=== PATIENT | female | born 1960 | race Caucasian/White ===

== ENCOUNTER → 2022-05-08 08:58 | Outpatient (CLI) | payer MEDICARE, SELFPAY ==
--- NOTE | 2022-05-08 09:05 | XR_ITS ---
FINAL REPORT TECHNIQUE: Bone densitometry calculations of the lumbar spine and hip were obtained. CLINICAL HISTORY: post sandoval FINDINGS: DEXA BONE DENSITY AXIAL SKELETON Using L1-4, the bone mineral density of the spine is 1.173 g/cm2, corresponding to T-score of 1.1. Note these values may be falsely elevated secondary to hypertrophic changes. Using the right hip, the bone mineral density of the femoral neck is 0.607 g/cm2, corresponding to a T-score of -2.2. NOTE: T-score: Standard deviation compared with peak bone mass of young adult mean. *Following the recommendations of the International Society of Bone densitometry, classification of hip BMD is based on the lower of two T-scores; total hip or femoral neck. IMPRESSION: Diminished bone mineral density of the lumbar spine and right hip consistent with osteopenia. FRAX 10 year fracture risk is 2.6% for a hip fracture and 17% for a major osteoporotic fracture. Reviewed, Interpreted and Dictated by Xavier Roque III, MD Transcribed by Mandy Rhoades Authenticated and [facility]
== END ==
PROVIDERS: PCP Family Medicine; Visit Provider Family Medicine
DX: Z78.0 Asymptomatic menopausal state (principal)
CPT/HCPCS: 77080

== ENCOUNTER → 2022-05-14 12:54 | Outpatient (CLI) | payer MEDICARE, SELFPAY ==
[2022-05-14 12:59] LABS: MANUAL DIFFERENTIAL MANUAL DIFFERENTIAL (MANUAL DIFF); Microscopic, Urine URINE MICROSCOPIC (MICROSCOPIC)
[2022-05-14 14:05] LABS: Basophils # 0.1 K/mm3 (0-0.2); Basophils % 0.7 % (0.1-2.0); Eosinophils % 0.1 % (0.1-12.0); Hematocrit 44.8 % (37.0-47.0); Hemoglobin 14.7 g/dL (12.2-16.2); Lymphocytes # 3.1 K/mm3 (0.7-4.5); Lymphocytes % 20.4 % (10-50); Mean Corpuscular HGB Conc 32.7 g/dL (31.8-35.4); Mean Corpuscular Hemoglobin 29.7 pg (27.0-31.2); Mean Corpuscular Volume 90.9 fl (81-99); Mean Platelet Volume 8.6 fl (7.4-10.4); Monocytes # 0.6 K/mm3 (0.1-1.0); Monocytes % 4.3 % (1.7-9.3); Neutrophils # 11.2 K/mm3 (1.8-7.8); Neutrophils % 74.5 % (37.0-80.0); Platelet Count 309 K/mm3 (142-424); Red Blood Count 4.93 M/mm3 (4.20-5.40); Red Cell Distribution Width 12.7 % (11.5-17.5)
[2022-05-14 14:13] LABS: Lymphocytes % 22 % (10-50); Monocytes % 5 % (2-9); Neutrophils % 73 % (42-76); Total Cells Counted 100
[2022-05-14 14:14] LABS: Platelet Estimate Normal; RBC Morphology Normal
[2022-05-14 14:50] LABS: Hemoglobin A1C 7.9 % (4.0-6.0)
[2022-05-14 14:54] LABS: Chloride 88 mmol/L (98-107); Sodium 133 mmol/L (136-145)
[2022-05-14 14:55] LABS: Potassium 4.1 mmoL/L (3.5-5.1)
[2022-05-14 14:57] LABS: Alanine Aminotransferase 34 U/L (12-78); Albumin Level 5.1 g/dl (3.5-5.0); Alkaline Phosphatase 56 U/L (38-126); Anion Gap 20.1 mEq/L (5-15); Aspartate Amino Transferase 39 U/L (14-36); Bilirubin,Total 0.8 mg/dl (0.2-1.3); Blood Urea Nitrogen 13 mg/dl (7-17); Carbon Dioxide 29 mmol/L (22.0-30.0); Cholesterol 209 mg/dl (140-200); Estimated Glomerular Filt Rate 85 ml/min (>60); GFR (African American) 103 ML/MIN (>60); Globulin 2.5 g/dL (1.3-3.2); Total Protein,Serum 7.6 g/dl (6.3-8.2); Triglycerides 184 mg/dl (30-150); VLDL Cholesterol 37 mg/dL (0-40)
[2022-05-14 14:58] LABS: Calcium 11.3 mg/dl (8.4-10.2); Chol/HDL Ratio 3.9 (1-3.5); Glucose 182 mg/dl (74-100); HDL Cholesterol 54 mg/dl (40-60)
[2022-05-14 15:08] LABS: Direct LDL Cholesterol 113.33 mg/dL (100-129)
[2022-05-14 15:28] LABS: Thyroid Stimulating Hormone 1.13 uIU/mL (0.465-4.68)
[2022-05-14 18:09] LABS: Appearance,Urine CLEAR (Clear); Bilirubin,Urine Negative (Negative); Blood, Urine TRACE-L (Negative); Color,Urine YELLOW (Yellow); Glucose,Urine (UA) Negative (Negative); Ketones,Urine Negative (Negative); Leukocyte Esterase,Urine 2+ (Negative); Nitrate,Urine Negative (Negative); PH,Urine 6.5 (5.0-8.5); Protein,Urine 1+ (Negative); Urobilinogen,Urine 0.2 EU/dl (0.2)
[2022-05-14 21:05] LABS: RBC,Urine Occasional #/hpf (0-3)
[2022-05-14 21:06] LABS: Bacteria,Urine 4+ /lpf
[2022-05-15 16:13] LABS: H. pylori Breath Test Negative (Negative)
== END ==
PROVIDERS: PCP Family Medicine; Visit Provider Family Medicine
DX: E11.9 Type 2 diabetes mellitus without complications (principal); E78.5 Hyperlipidemia, unspecified; I10 Essential (primary) hypertension; R35.0 Frequency of micturition; Z79.84 Long term (current) use of oral hypoglycemic drugs
CPT/HCPCS: 36415; 80053; 80061; 81001; 82043; 83013; 83036; 84443; 85007; 85014; 85018; 85048; 85049; 87086; 87088; 87186

== ENCOUNTER → 2022-05-23 09:01 | Outpatient (CLI) | payer MEDICARE, SELFPAY ==
[2022-05-23 09:07] LABS: Microscopic, Urine URINE MICROSCOPIC (MICROSCOPIC)
[2022-05-23 09:25] LABS: Basophils # 0.1 K/mm3 (0-0.2); Basophils % 1.1 % (0.1-2.0); Eosinophils # 0.3 K/mm3 (0.0-0.4); Eosinophils % 2.2 % (0.1-12.0); Hematocrit 43.5 % (37.0-47.0); Hemoglobin 13.8 g/dL (12.2-16.2); Lymphocytes # 5.2 K/mm3 (0.7-4.5); Mean Corpuscular HGB Conc 31.8 g/dL (31.8-35.4); Mean Corpuscular Hemoglobin 29.4 pg (27.0-31.2); Mean Corpuscular Volume 92.2 fl (81-99); Mean Platelet Volume 8.6 fl (7.4-10.4); Monocytes # 0.5 K/mm3 (0.1-1.0); Monocytes % 4.1 % (1.7-9.3); Neutrophils # 6.3 K/mm3 (1.8-7.8); Neutrophils % 50.7 % (37.0-80.0); Platelet Count 320 K/mm3 (142-424); Red Blood Count 4.71 M/mm3 (4.20-5.40); Red Cell Distribution Width 13.9 % (11.5-17.5); White Blood Count 12.4 K/mm3 (4.8-10.8)
[2022-05-23 09:39] LABS: Appearance,Urine CLEAR (Clear); Bilirubin,Urine Negative (Negative); Blood, Urine Negative (Negative); Color,Urine YELLOW (Yellow); Glucose,Urine (UA) Negative (Negative); Ketones,Urine Negative (Negative); Leukocyte Esterase,Urine 1+ (Negative); Nitrate,Urine Negative (Negative); PH,Urine 6.5 (5.0-8.5); Protein,Urine Negative (Negative); Specific Gravity, Urine 1.015 (1.005-1.030); Urobilinogen,Urine 0.2 EU/dl (0.2)
[2022-05-23 09:58] LABS: Alanine Aminotransferase 28 U/L (12-78); Albumin Level 4.9 g/dl (3.5-5.0); Albumin/Globulin Ratio 2.5 (1.1-1.8); Alkaline Phosphatase 51 U/L (38-126); Amylase 80 U/L (30-110); Anion Gap 18.4 mEq/L (5-15); Aspartate Amino Transferase 31 U/L (14-36); Bilirubin,Total 0.6 mg/dl (0.2-1.3); Blood Urea Nitrogen 22 mg/dl (7-17); Calcium 10.6 mg/dl (8.4-10.2); Carbon Dioxide 27 mmol/L (22.0-30.0); Chloride 96 mmol/L (98-107); Estimated Glomerular Filt Rate 64 ml/min (>60); GFR (African American) 77 ML/MIN (>60); Glucose 180 mg/dl (74-100); Lipase 379 U/L (23-300); Potassium 4.4 mmoL/L (3.5-5.1); Sodium 137 mmol/L (136-145); Total Protein,Serum 6.9 g/dl (6.3-8.2)
[2022-05-23 10:07] LABS: Bacteria,Urine Trace /lpf; RBC,Urine Occasional #/hpf (0-3); Squamous Epithelial Cell,Urine Occasional #/hpf (0-5)
== END ==
PROVIDERS: PCP Family Medicine; Visit Provider Family Medicine
DX: E11.9 Type 2 diabetes mellitus without complications (principal); R19.7 Diarrhea, unspecified; N39.0 Urinary tract infection, site not specified; E86.0 Dehydration; Z79.899 Other long term (current) drug therapy; Z79.84 Long term (current) use of oral hypoglycemic drugs
CPT/HCPCS: 36415; 80053; 81001; 82150; 83690; 85025; 87086

== ENCOUNTER → 2022-05-24 11:31 | Outpatient (CLI) | payer MEDICARE, SELFPAY ==
--- NOTE | 2022-05-24 11:35 | CT_ITS ---
FINAL REPORT TECHNIQUE: Axial CT images of the abdomen were obtained with IV contrast. Coronal reformatted images were also obtained. This study was performed with techniques to keep radiation doses as low as reasonably achievable (ALARA). Individualized dose reduction techniques using automated exposure control or adjustment of mA and/or kV according to the patient''s size were employed. CLINICAL HISTORY: elevated pancreatic enzyme and abdominal pain FINDINGS: The lung bases are clear. There is mild fatty infiltration of the liver. The gallbladder appears normal without evidence of gallstones. There is no evidence of biliary ductal dilatation. The pancreas appears normal. There is no peripancreatic fluid. There is no pancreatic mass. The spleen size is within normal limits. There is mild bilateral adrenal hyperplasia. There is no evidence of renal mass or hydronephrosis. There is no evidence of adenopathy. No abnormal fluid collection is seen. No localized inflammatory processes identified. IMPRESSION: No peripancreatic inflammation or pancreatic mass. Mild fatty infiltration of the liver. Mild bilateral adrenal hyperplasia. Reviewed, Interpreted and Dictated by Kris Parkinson MD Transcribed by Bharath Anderson Authenticated and [facility]
== END ==
PROVIDERS: PCP Family Medicine; Visit Provider Family Medicine
DX: K85.90 Acute pancreatitis without necrosis or infection, unspecified (principal)
CPT/HCPCS: 74160; Q9967

== ENCOUNTER → 2022-08-26 10:45 | Outpatient (CLI) | payer MEDICARE, SELFPAY ==
[2022-08-26 11:16] LABS: Basophils # 0.1 K/mm3 (0-0.2); Basophils % 1.5 % (0.1-2.0); Eosinophils # 0.1 K/mm3 (0.0-0.4); Eosinophils % 1.6 % (0.1-12.0); Hematocrit 44.2 % (37.0-47.0); Hemoglobin 14.3 g/dL (12.2-16.2); Lymphocytes # 3.3 K/mm3 (0.7-4.5); Lymphocytes % 39.6 % (10-50); Mean Corpuscular HGB Conc 32.4 g/dL (31.8-35.4); Mean Corpuscular Volume 89.5 fl (81-99); Mean Platelet Volume 8.7 fl (7.4-10.4); Monocytes # 0.4 K/mm3 (0.1-1.0); Monocytes % 4.8 % (1.7-9.3); Neutrophils # 4.4 K/mm3 (1.8-7.8); Neutrophils % 52.5 % (37.0-80.0); Platelet Count 227 K/mm3 (142-424); Red Blood Count 4.94 M/mm3 (4.20-5.40); Red Cell Distribution Width 12.9 % (11.5-17.5); White Blood Count 8.4 K/mm3 (4.8-10.8)
[2022-08-26 11:26] LABS: Creatinine,Urine Random 26 mg/dL (Not Estab.); Microalbumin/Creatinine Ratio 66.1
[2022-08-26 11:31] LABS: Hemoglobin A1C 9.8 % (4.0-6.0)
[2022-08-26 11:48] LABS: Alanine Aminotransferase 30 U/L (12-78); Albumin Level 4.7 g/dl (3.5-5.0); Alkaline Phosphatase 50 U/L (38-126); Amylase 58 U/L (30-110); Anion Gap 9.2 mEq/L (5-15); Aspartate Amino Transferase 31 U/L (14-36); Bilirubin,Total 0.8 mg/dl (0.2-1.3); Blood Urea Nitrogen 14 mg/dl (7-17); Carbon Dioxide 27 mmol/L (22.0-30.0); Chloride 104 mmol/L (98-107); Estimated Glomerular Filt Rate 73 ml/min (>60); GFR (African American) 88 ML/MIN (>60); Globulin 2.3 g/dL (1.3-3.2); Glucose 290 mg/dl (74-100); Lipase 222 U/L (23-300); Potassium 4.2 mmoL/L (3.5-5.1); Sodium 136 mmol/L (136-145)
== END ==
PROVIDERS: PCP Family Medicine; Visit Provider Family Medicine
DX: E11.9 Type 2 diabetes mellitus without complications (principal); D72.829 Elevated white blood cell count, unspecified; R10.9 Unspecified abdominal pain; R74.8 Abnormal levels of other serum enzymes; Z79.84 Long term (current) use of oral hypoglycemic drugs
CPT/HCPCS: 36415; 80053; 82043; 82150; 82570; 83036; 83690; 85025; 87086; 87088; 87186

== ENCOUNTER → 2022-11-22 09:35 | Outpatient (CLI) | payer MEDICARE, SELFPAY ==
[2022-11-22 11:30] LABS: Alanine Aminotransferase 39 U/L (12-78); Albumin/Globulin Ratio 2.2 (1.1-1.8); Alkaline Phosphatase 60 U/L (38-126); Anion Gap 20.9 mEq/L (5-15); Aspartate Amino Transferase 49 U/L (14-36); Blood Urea Nitrogen 18 mg/dl (7-17); Calcium 10.3 mg/dl (8.4-10.2); Carbon Dioxide 25 mmol/L (22.0-30.0); Chloride 92 mmol/L (98-107); Cholesterol 207 mg/dl (140-200); Estimated Glomerular Filt Rate 85 ml/min (>60); GFR (African American) 103 ML/MIN (>60); Globulin 2.3 g/dL (1.3-3.2); Glucose 231 mg/dl (74-100); HDL Cholesterol 68 mg/dl (40-60); Potassium 4.9 mmoL/L (3.5-5.1); Sodium 133 mmol/L (136-145); Total Protein,Serum 7.3 g/dl (6.3-8.2); Triglycerides 174 mg/dl (30-150); VLDL Cholesterol 35 mg/dL (0-40)
[2022-11-22 11:41] LABS: Direct LDL Cholesterol 123.06 mg/dL (100-129)
[2022-11-22 12:24] LABS: Hemoglobin A1C 9.6 % (4.0-6.0)
== END ==
PROVIDERS: PCP Family Medicine; Visit Provider Family Medicine
DX: E78.5 Hyperlipidemia, unspecified (principal); E11.9 Type 2 diabetes mellitus without complications; Z79.84 Long term (current) use of oral hypoglycemic drugs
CPT/HCPCS: 36415; 80053; 80061; 83036

== ENCOUNTER → 2023-02-20 16:16 | Outpatient (CLI) | payer MEDICARE, SELFPAY ==
[2023-02-20 10:15] LABS: Basophils # 0.1 K/mm3 (0-0.2); Basophils % 0.6 % (0.1-2.0); Eosinophils # 0.1 K/mm3 (0.0-0.4); Hematocrit 47.8 % (37.0-47.0); Hemoglobin 15.6 g/dL (12.2-16.2); Lymphocytes % 32.9 % (10-50); Mean Corpuscular HGB Conc 32.6 g/dL (31.8-35.4); Mean Corpuscular Hemoglobin 28.5 pg (27.0-31.2); Mean Corpuscular Volume 87.3 fl (81-99); Mean Platelet Volume 9.3 fl (7.4-10.4); Monocytes # 0.5 K/mm3 (0.1-1.0); Neutrophils # 5.5 K/mm3 (1.8-7.8); Neutrophils % 60.5 % (37.0-80.0); Platelet Count 231 K/mm3 (142-424); Red Blood Count 5.48 M/mm3 (4.20-5.40); White Blood Count 9.1 K/mm3 (4.8-10.8)
[2023-02-20 11:14] LABS: Hemoglobin A1C 10.5 % (4.0-6.0)
[2023-02-20 11:31] LABS: Alanine Aminotransferase 35 U/L (12-78); Albumin Level 4.9 g/dl (3.5-5.0); Albumin/Globulin Ratio 1.8 (1.1-1.8); Alkaline Phosphatase 54 U/L (38-126); Anion Gap 19.4 mEq/L (5-15); Aspartate Amino Transferase 36 U/L (14-36); Bilirubin,Total 1.4 mg/dl (0.2-1.3); Blood Urea Nitrogen 20 mg/dl (7-17); Calcium 10.5 mg/dl (8.4-10.2); Carbon Dioxide 26 mmol/L (22.0-30.0); Chloride 96 mmol/L (98-107); Chol/HDL Ratio 4.6 (1-3.5); Cholesterol 208 mg/dl (140-200); Estimated Glomerular Filt Rate 73 ml/min (>60); GFR (African American) 88 ML/MIN (>60); Globulin 2.7 g/dL (1.3-3.2); Glucose 288 mg/dl (74-100); HDL Cholesterol 45 mg/dl (40-60); Potassium 4.4 mmoL/L (3.5-5.1); Sodium 137 mmol/L (136-145); Total Protein,Serum 7.6 g/dl (6.3-8.2); Triglycerides 295 mg/dl (30-150); VLDL Cholesterol 59 mg/dL (0-40)
[2023-02-20 11:42] LABS: Direct LDL Cholesterol 110.78 mg/dL (100-129)
== END ==
PROVIDERS: PCP Nurse Practitioner Family; Visit Provider Nurse Practitioner Family
DX: I10 Essential (primary) hypertension (principal); E11.9 Type 2 diabetes mellitus without complications; Z79.84 Long term (current) use of oral hypoglycemic drugs; Z79.899 Other long term (current) drug therapy
CPT/HCPCS: 80053; 80061; 83036; 85025

== ENCOUNTER 2023-04-11 17:15 | Emergency (ER) | payer MEDICARE, SELFPAY ==
[2023-04-11 17:16] VITALS: BP 165/78; PULSE 78; RESP 20; TEMP 36.7; O2SAT 99; BMI 23.8
--- NOTE | 2023-04-11 17:25 | HMH.EDGENADL ---
Discharge Plan Disposition Patient Disposition: Home, Self-Care Condition: Good Prescriptions Prescriptions: No Action Hair,Skin and Nails Tablet 1 tab PO DAILY omega-3 fatty acids-fish oil [Fish Oil] 360-1,200 mg capsule 1 cap PO DAILY lysine 1,000 mg tablet 1,000 mg PO DAILY Centrum Silver Women 8 mg iron-400 mcg-50 mcg tablet 1 tab PO DAILY vitamin E (dl, acetate) 180 mg (400 unit) capsule 180 mg PO DAILY cholecalciferol (vitamin D3) 25 mcg (1,000 unit) capsule 25 mcg PO DAILY hydrochlorothiazide 25 mg tablet 25 mg PO DAILY Qty: 90 1RF lisinopril 40 mg tablet 40 mg PO DAILY Qty: 90 1RF loratadine 10 mg tablet 10 mg PO DAILY Qty: 90 1RF metformin 1,000 mg tablet 1,000 mg PO BID 90 Days Qty: 180 1RF omeprazole 40 mg capsule,delayed release(DR/EC) 40 mg PO DAILY 90 Days Qty: 90 1RF rosuvastatin 40 mg tablet 40 mg PO DAILY Qty: 90 1RF Jardiance 10 mg tablet 10 mg PO DAILY Qty: 90 1RF fenofibrate nanocrystallized [Tricor] 145 mg tablet 145 mg PO DAILY Qty: 90 1RF Rybelsus 3 mg tablet 3 mg PO DAILY 30 Days Qty: 30 0RF Referrals Follow up/Referrals: Fatou Abreu APRN [Primary Care Provider] - See instructions Activity Restrictions/Add. Instructions Additional Instructions/Restrictions: As discussed, please keep checking her blood sugar, you can take that additional diabetes medication if needed, please return with any new or worsening symptoms Clinical Impressions Clinical Impression: Acute hyperglycemia Discharge ED Provider: Rickie Yang Adult HPI General Chief complaint: Nausea/Vomiting/Diarrhea Stated complaint: elevated blood sugar Time Seen by Provider: 04/11/23 17:25 History of Present Illness HPI narrative: The patient presents with a chief complaint of elevated blood sugar levels for the past five days, with readings ranging from 400-500 mg/dL, which is significantly higher than their usual levels of around 200 mg/dL or lower. The patient reports no recent changes in their diabetes medications, which include Metformin, but notes that they were prescribed Flonase for allergies and sinus problems by another physician. The patient suspects that the Flonase, a steroid, may be contributing to their increased blood sugar levels. The patient has been taking 1,000 mg of Metformin twice daily and has recently added glipizide at 330 mg due to the high blood sugar levels. They have already discontinued the use of Flonase for three days in an attempt to address the issue. The patient has an upcoming appointment with their primary care physician next Friday. Related Data Home Medications Medication Instructions Recorded Confirmed cholecalciferol (vitamin D3) 25 25 mcg PO DAILY 02/20/23 02/20/23 mcg (1,000 unit) capsule lysine 1,000 mg tablet 1,000 mg PO DAILY 02/20/23 02/20/23 lxpzlfrj-cqxf-oojo 8 mg-folic 400 1 tab PO DAILY 02/20/23 02/20/23 mcg-K 50 mcg-lutein 300 mcg tablet (Centrum Silver Women) multivitamin with minerals 1 tab PO DAILY 02/20/23 02/20/23 (Hair,Skin and Nails tablet) omega-3 fatty acids-fish oil 360 1 cap PO DAILY 02/20/23 02/20/23 mg-1,200 mg capsule (Fish Oil) vitamin E (dl, acetate) 180 mg 180 mg PO DAILY 02/20/23 02/20/23 (400 unit) capsule Previous Rx's Medication Instructions Recorded empagliflozin 10 mg tablet 10 mg PO DAILY #90 tabs 02/20/23 (Jardiance) hydrochlorothiazide 25 mg tablet 25 mg PO DAILY #90 tabs 02/20/23 lisinopril 40 mg tablet 40 mg PO DAILY #90 tabs 02/20/23 loratadine 10 mg tablet 10 mg PO DAILY #90 tabs 02/20/23 metformin 1,000 mg tablet 1,000 mg PO BID 90 days #180 tabs 02/20/23 omeprazole 40 mg capsule,delayed 40 mg PO DAILY 90 days #90 caps 02/20/23 release rosuvastatin 40 mg tablet 40 mg PO DAILY #90 tabs 02/20/23 fenofibrate nanocrystallized 145 145 mg PO DAILY #90 tabs 02/22/23 mg tablet (Tricor) semaglutide 3 mg tablet (Rybelsus)
[2023-04-11 17:32] LABS: POC Glucose,Bedside 402 (70-110)
[2023-04-11 17:57] LABS: Microscopic, Urine URINE MICROSCOPIC (MICROSCOPIC)
[2023-04-11 17:59] LABS: VBG Base Excess -2.2 mmol/L (-2.4-2.3); VBG HCO3 23.9 mmol/L (23-30); VBG Oxygen Saturation 75.8 % (50-70); VBG PCO2 47.1 mmol/L (35-51); VBG PH 7.32 mmol/L (7.31-7.41); VBG PO2 41.6 mmol/L (28-40); VBG Total CO2 25.3 mmol/L (23-27)
[2023-04-11 18:00] VITALS: BP 161/86; PULSE 71; O2SAT 96
[2023-04-11 18:01] LABS: Basophils # 0.1 K/mm3 (0-0.2); Basophils % 0.9 % (0.1-2.0); Eosinophils # 0.1 K/mm3 (0.0-0.4); Eosinophils % 0.9 % (0.1-12.0); Hematocrit 43.9 % (37.0-47.0); Hemoglobin 14.3 g/dL (12.2-16.2); Mean Corpuscular HGB Conc 32.6 g/dL (31.8-35.4); Mean Corpuscular Hemoglobin 28.6 pg (27.0-31.2); Mean Corpuscular Volume 87.5 fl (81-99); Mean Platelet Volume 9.2 fl (7.4-10.4); Monocytes # 0.5 K/mm3 (0.1-1.0); Monocytes % 4.9 % (1.7-9.3); Neutrophils # 5.2 K/mm3 (1.8-7.8); Neutrophils % 52.4 % (37.0-80.0); Platelet Count 269 K/mm3 (142-424); Red Blood Count 5.02 M/mm3 (4.20-5.40); Red Cell Distribution Width 12.8 % (11.5-17.5); White Blood Count 9.8 K/mm3 (4.8-10.8)
[2023-04-11 18:06] LABS: Alanine Aminotransferase 33 U/L (12-78); Albumin Level 4.8 g/dl (3.5-5.0); Albumin/Globulin Ratio 1.7 (1.1-1.8); Alkaline Phosphatase 45 U/L (38-126); Aspartate Amino Transferase 32 U/L (14-36); Bilirubin,Total 0.3 mg/dl (0.2-1.3); Blood Urea Nitrogen 19 mg/dl (7-17); Carbon Dioxide 28 mmol/L (22.0-30.0); Chloride 98 mmol/L (98-107); Creatinine Clearance Estimated 55 mL/min (50-200); Estimated Glomerular Filt Rate 64 ml/min (>60); GFR (African American) 77 ML/MIN (>60); Globulin 2.8 g/dL (1.3-3.2); Glucose 383 mg/dl (74-100); Sodium 136 mmol/L (136-145); Total Protein,Serum 7.6 g/dl (6.3-8.2)
[2023-04-11 18:07] LABS: Appearance,Urine CLEAR (Clear); Bilirubin,Urine Negative (Negative); Blood, Urine Negative (Negative); Color,Urine YELLOW (Yellow); Glucose,Urine (UA) 3+ (Negative); Ketones,Urine Negative (Negative); Leukocyte Esterase,Urine Negative (Negative); Nitrate,Urine Negative (Negative); Protein,Urine Negative (Negative); Urobilinogen,Urine 0.2 EU/dl (0.2)
--- NOTE | 2023-04-11 18:07 | PC.NURSE ---
rounded on pt at this time, pt request a blanket, warm blanket given to pt. Pt states no other needs at this time.
[2023-04-11 18:19] LABS: Squamous Epithelial Cell,Urine Occasional #/hpf (0-5); WBC,Urine Occasional #/hpf (0-3)
[2023-04-11 18:31] VITALS: BP 160/76; PULSE 78; O2SAT 98
[2023-04-11 20:30] LABS: POC Glucose,Bedside 257 (70-110)
[2023-04-11 21:12] VITALS: BP 177/91; PULSE 66; RESP 20; TEMP 36.7; O2SAT 97
== END 2023-04-11 21:14 | disposition home or self-care (01) ==
PROVIDERS: Emergency Provider Emergency Medicine; PCP Nurse Practitioner Family
DX: E11.65 Type 2 diabetes mellitus with hyperglycemia (principal); I10 Essential (primary) hypertension; E78.5 Hyperlipidemia, unspecified; J30.9 Allergic rhinitis, unspecified
CPT/HCPCS: 80053; 81001; 82803; 82962; 85025; 96360; 99284

== ENCOUNTER → 2023-04-29 11:43 | Outpatient (CLI) | payer MEDICARE, SELFPAY ==
[2023-04-29 14:16] VITALS: BMI 27.3
== END ==
PROVIDERS: PCP Nurse Practitioner Family; Visit Provider Nurse Practitioner Family
DX: E11.9 Type 2 diabetes mellitus without complications (principal); Z79.84 Long term (current) use of oral hypoglycemic drugs; Z71.3 Dietary counseling and surveillance; Z68.25 Body mass index [BMI] 25.0-25.9, adult
CPT/HCPCS: 97802

== ENCOUNTER 2023-07-14 14:12 | Outpatient (CLI) | payer MEDICARE, SELFPAY ==
[2023-07-14 14:36] LABS: Basophils # 0.1 K/mm3 (0-0.2); Basophils % 0.6 % (0.1-2.0); Eosinophils # 0.2 K/mm3 (0.0-0.4); Eosinophils % 1.8 % (0.1-12.0); Hematocrit 42.5 % (37.0-47.0); Lymphocytes # 3.9 K/mm3 (0.7-4.5); Lymphocytes % 40.1 % (10-50); Mean Platelet Volume 10.1 fl (7.4-10.4); Monocytes # 0.5 K/mm3 (0.1-1.0); Monocytes % 5.3 % (1.7-9.3); Neutrophils # 5.1 K/mm3 (1.8-7.8); Neutrophils % 52.2 % (37.0-80.0); Platelet Count 252 K/mm3 (142-424); Red Blood Count 4.83 M/mm3 (4.20-5.40); Red Cell Distribution Width 13.7 % (11.5-17.5); White Blood Count 9.7 K/mm3 (4.8-10.8)
[2023-07-14 14:58] LABS: Alanine Aminotransferase 26 U/L (12-78); Albumin Level 4.4 g/dl (3.5-5.0); Albumin/Globulin Ratio 1.9 (1.1-1.8); Alkaline Phosphatase 47 U/L (38-126); Anion Gap 11.3 mEq/L (5-15); Aspartate Amino Transferase 30 U/L (14-36); Bilirubin,Total 0.4 mg/dl (0.2-1.3); Blood Urea Nitrogen 21 mg/dl (7-17); Calcium 9.3 mg/dl (8.4-10.2); Carbon Dioxide 24 mmol/L (22.0-30.0); Chloride 104 mmol/L (98-107); Chol/HDL Ratio 5.1 (1-3.5); Cholesterol 208 mg/dl (140-200); Estimated Glomerular Filt Rate 56 ml/min (>60); GFR (African American) 68 ML/MIN (>60); Globulin 2.3 g/dL (1.3-3.2); Glucose 225 mg/dl (74-100); HDL Cholesterol 41 mg/dl (40-60); Potassium 4.3 mmoL/L (3.5-5.1); Sodium 135 mmol/L (136-145); Total Protein,Serum 6.7 g/dl (6.3-8.2); Triglycerides 179 mg/dl (30-150); VLDL Cholesterol 36 mg/dL (0-40)
[2023-07-14 15:08] LABS: Direct LDL Cholesterol 131.34 mg/dL (100-129)
[2023-07-14 15:19] LABS: Hemoglobin A1C 9.9 % (4.0-6.0)
[2023-07-14 15:21] LABS: Free T4 (Free Thyroxine) 1.13 ng/dl (0.78-2.19)
[2023-07-14 15:36] LABS: Thyroid Stimulating Hormone 0.84 uIU/mL (0.465-4.68)
[2023-07-14 15:43] LABS: 25-OH Vitamin D, Total 48.5 ng/mL (30-100)
[2023-07-14 15:55] LABS: Vitamin B12 936 pg/mL (239-931)
== END 2023-07-14 23:59 ==
PROVIDERS: PCP Nurse Practitioner Family; Visit Provider Nurse Practitioner Family
DX: E11.9 Type 2 diabetes mellitus without complications; R53.83 Other fatigue; D72.829 Elevated white blood cell count, unspecified; E78.5 Hyperlipidemia, unspecified; M85.89 Other specified disorders of bone density and structure, multiple sites; Z79.84 Long term (current) use of oral hypoglycemic drugs; Z79.899 Other long term (current) drug therapy
CPT/HCPCS: 80053; 80061; 82306; 82607; 83036; 84439; 84443; 85025

== ENCOUNTER 2023-08-13 13:57 | Outpatient (CLI) | payer MEDICARE, SELFPAY ==
--- NOTE | 2023-08-13 13:57 | CT_ITS ---
FINAL REPORT TECHNIQUE: Thin section axial CT images of the facial bones and sinuses were obtained without contrast. Coronal reformatted images were also obtained.This study was performed with techniques to keep radiation doses as low as reasonably achievable, (ALARA). Individualized dose reduction techniques using automated exposure control or adjustment of mA and/or kV according to the patient''''s size were employed. CLINICAL HISTORY: sinusitis FINDINGS: There is mild mucosal thickening of the maxillary sinuses. There is a retention cyst or polyp in the floor of the left maxillary sinus. The ostiomeatal units have an unremarkable appearance. There is left quiana bullosa. There is mild rightward nasal septal deviation. No fracture or acute bony abnormality is identified. IMPRESSION: Sinusitis as above. Reviewed, Interpreted and Dictated by Xavier Roque III, MD Transcribed by Mira Guevara Authenticated and [facility]
== END 2023-08-13 23:59 ==
LOC: RAD 13:57
PROVIDERS: PCP Nurse Practitioner Family; Visit Provider Nurse Practitioner
DX: J32.9 Chronic sinusitis, unspecified (principal)
CPT/HCPCS: 70486

== ENCOUNTER 2023-11-05 10:16 | Outpatient (CLI) | payer MEDICARE, SELFPAY ==
[2023-11-05 10:29] LABS: Microscopic, Urine URINE MICROSCOPIC (MICROSCOPIC)
--- NOTE | 2023-11-05 10:43 | XR_ITS ---
FINAL REPORT CLINICAL HISTORY: dyspnea COMPARISON: None FINDINGS: No acute pulmonary density is evident. There is no evidence of effusion or other pleural disease. The mediastinum has a normal appearance. The cardiac silhouette is unremarkable. IMPRESSION: Unremarkable chest exam. Reviewed, Interpreted and Dictated by Bernardino Fernandez MD Transcribed by Altagracia Guzman Authenticated and [facility]
[2023-11-05 10:54] LABS: Basophils # 0.1 K/mm3 (0-0.2); Basophils % 0.7 % (0.1-2.0); Eosinophils # 0.1 K/mm3 (0.0-0.4); Eosinophils % 0.8 % (0.1-12.0); Hematocrit 43.1 % (37.0-47.0); Hemoglobin 14.2 g/dL (12.2-16.2); Lymphocytes # 2.7 K/mm3 (0.7-4.5); Lymphocytes % 28.5 % (10-50); Mean Corpuscular Hemoglobin 29.3 pg (27.0-31.2); Mean Corpuscular Volume 88.8 fl (81-99); Mean Platelet Volume 9.9 fl (7.4-10.4); Monocytes # 0.5 K/mm3 (0.1-1.0); Monocytes % 5.3 % (1.7-9.3); Neutrophils # 6.1 K/mm3 (1.8-7.8); Neutrophils % 64.5 % (37.0-80.0); Platelet Count 227 K/mm3 (142-424); Red Blood Count 4.85 M/mm3 (4.20-5.40); Red Cell Distribution Width 14.2 % (11.5-17.5); White Blood Count 9.5 K/mm3 (4.8-10.8)
[2023-11-05 11:10] LABS: D-Dimer 0.29 ug/mL (0.0-0.5)
[2023-11-05 11:11] LABS: Hemoglobin A1C 9.9 % (4.0-6.0)
[2023-11-05 11:19] LABS: Creatinine,Urine Random 53 mg/dL (Not Estab.)
[2023-11-05 11:20] LABS: Microalbumin/Creatinine Ratio 61.3
[2023-11-05 11:26] LABS: Appearance,Urine CLEAR (Clear); Bilirubin,Urine Negative (Negative); Blood, Urine Negative (Negative); Chloride 104 mmol/L (98-107); Color,Urine YELLOW (Yellow); Glucose,Urine (UA) 1+ (Negative); Ketones,Urine Negative (Negative); Leukocyte Esterase,Urine Negative (Negative); Nitrate,Urine Negative (Negative); Protein,Urine Negative (Negative); Sodium 139 mmol/L (136-145); Urobilinogen,Urine 0.2 EU/dl (0.2)
[2023-11-05 11:27] LABS: Potassium 3.9 mmoL/L (3.5-5.1)
[2023-11-05 11:29] LABS: Alanine Aminotransferase 40 U/L (12-78); Albumin Level 4.8 g/dl (3.5-5.0); Alkaline Phosphatase 46 U/L (38-126); Anion Gap 15.9 mEq/L (5-15); Aspartate Amino Transferase 46 U/L (14-36); Bilirubin,Total 0.7 mg/dl (0.2-1.3); Blood Urea Nitrogen 26 mg/dl (7-17); Calcium 11.2 mg/dl (8.4-10.2); Carbon Dioxide 23 mmol/L (22.0-30.0); Cholesterol 224 mg/dl (140-200); Estimated Glomerular Filt Rate 50 ml/min (>60); GFR (African American) 61 ML/MIN (>60); Globulin 2.4 g/dL (1.3-3.2); Glucose 240 mg/dl (74-100); Iron 95 ug/dL (37-170); Phosphorous 3.9 mg/dl (2.5-4.5); Total Protein,Serum 7.2 g/dl (6.3-8.2); Triglycerides 100 mg/dl (30-150); VLDL Cholesterol 20 mg/dL (0-40)
[2023-11-05 11:30] LABS: Chol/HDL Ratio 2.7 (1-3.5); HDL Cholesterol 84 mg/dl (40-60); Magnesium 1.4 mg/dl (1.6-2.3)
[2023-11-05 11:42] LABS: Total Iron Binding Capacity 456 ug/dL (265-497)
[2023-11-05 11:46] LABS: Troponin I < 0.01 ng/ml (0.00-0.034)
[2023-11-05 11:48] LABS: Direct LDL Cholesterol 126.59 mg/dL (100-129)
[2023-11-05 11:51] LABS: Squamous Epithelial Cell,Urine Occasional #/hpf (0-5)
[2023-11-05 12:00] LABS: Thyroid Stimulating Hormone 0.49 uIU/mL (0.465-4.68)
[2023-11-05 12:05] LABS: Ferritin 30.3 ng/ml (11.1-264)
[2023-11-05 12:27] LABS: 25-OH Vitamin D, Total 54.7 ng/mL (30-100)
[2023-11-05 12:28] LABS: Free T4 (Free Thyroxine) 1.01 ng/dl (0.78-2.19)
[2023-11-05 13:03] LABS: Vitamin B12 806 pg/mL (239-931)
[2023-11-06 07:20] LABS: HBsAg Screen Negative (Negative); HCV Ab Non Reactive (Non Reactive); Hep A Ab, IGM Negative (Negative); Hep B Core Ab, IgM Negative (Negative)
[2023-11-06 09:16] LABS: HIV Screen 4th Generation wRfx Non Reactive (Non Reactive); Thyroid Peroxidase Antibodies <9 IU/mL (0-34)
[2023-11-06 13:53] LABS: Rapid Plasma Reagin Ab Titer Non Reactive titer (NonRea<1:1)
[2023-11-06 22:46] LABS: Neisseria gonorrhoeae, NAA Negative (Negative)
== END 2023-11-05 23:59 | disposition home or self-care (01) ==
LOC: LAB 10:17
PROVIDERS: PCP Nurse Practitioner Family; Visit Provider Nurse Practitioner Family
DX: I10 Essential (primary) hypertension (principal); E11.9 Type 2 diabetes mellitus without complications; Z11.3 Encounter for screening for infections with a predominantly sexual mode of transmission; R06.00 Dyspnea, unspecified; R61 Generalized hyperhidrosis; R00.2 Palpitations; R53.83 Other fatigue; R74.8 Abnormal levels of other serum enzymes; E78.5 Hyperlipidemia, unspecified; D72.829 Elevated white blood cell count, unspecified; D64.9 Anemia, unspecified; E55.9 Vitamin D deficiency, unspecified; M79.605 Pain in left leg; I83.90 Asymptomatic varicose veins of unspecified lower extremity; R01.1 Cardiac murmur, unspecified; Z79.4 Long term (current) use of insulin; B96.89 Other specified bacterial agents as the cause of diseases classified elsewhere; Z11.4 Encounter for screening for human immunodeficiency virus [HIV]
CPT/HCPCS: 36415; 71046; 80053; 80061; 80074; 81001; 82043; 82306; 82570; 82607; 82728; 83036; 83540; 83550; 83735; 83880; 84100; 84156; 84439; 84443; 84484; 85025; 85378; 86376; 86593; 86703; 87086; 87491; 87591; G0432

== ENCOUNTER 2023-11-15 03:11 | Observation (INO) | payer MEDICARE, SELFPAY ==
[2023-11-15] VITALS (37 sets, daily range): BP systolic 130–205; BP diastolic 53–97; PULSE 45–84; RESP 12–20; TEMP 36.4–37.2; O2SAT 92–100; BMI 26.2; BMI 28.3
--- NOTE | 2023-11-15 03:25 | CT_ITS ---
PROCEDURE INFORMATION: Exam: CT Abdomen And Pelvis With Contrast Exam date and time: 11/15/2023 4:06 AM Age: 63 years old Clinical indication: Abdominal pain; Additional info: Abd pain TECHNIQUE: Imaging protocol: Computed tomography of the abdomen and pelvis with contrast. Radiation optimization: All CT scans at this facility use at least one of these dose optimization techniques: automated exposure control; mA and/or kV adjustment per patient size (includes targeted exams where dose is matched to clinical indication); or iterative reconstruction. Contrast material: ISOVUE; Contrast volume: 75 ml; Contrast route: IV; COMPARISON: CT ABDOMEN W CON 05/24/2022 12:05 PM FINDINGS: Lungs: Basilar atelectasis. Heart: Base of heart is unremarkable as visualized. Liver: Hepatic steatosis. Gallbladder and bile ducts: Normal. No calcified stones. No ductal dilation. Pancreas: Normal. No ductal dilation. Spleen: Normal. No splenomegaly. Adrenal glands: Normal. No mass. Kidneys and ureters: Fluid attenuating benign left renal cyst. Stomach and bowel: Moderate colonic stool burden. Appendix: No evidence of appendicitis. Intraperitoneal space: Unremarkable. No free air. No significant fluid collection. Vasculature: Mild calcified atherosclerotic disease of the visualized lower abdominal aorta and its major branches. Lymph nodes: Unremarkable. No enlarged lymph nodes. Urinary bladder: Unremarkable as visualized. Reproductive: Status post hysterectomy. Bones/joints: Severe degenerative change of the visualized osseous structures. Prominent disc extrusion at L2 through L5 which likely cause at least mild spinal canal narrowing and mild bilateral foraminal narrowing. Soft tissues: Unremarkable. IMPRESSION: No acute intra-abdominal findings. Additional findings as above. COMMENTS: Consistent with the [employer]'s Incidental Findings Committee white paper (J Am Neftali Radiol 2018): Any incidental renal lesion less than 1 cm or classified as too small to characterize, or any incidental cystic renal lesion characterized as simple-appearing, is likely benign. No follow-up imaging is recommended for these lesions per consensus recommendations based on imaging criteria.
[2023-11-15 03:30] LABS: Microscopic, Urine URINE MICROSCOPIC (MICROSCOPIC)
[2023-11-15 03:31] LABS: Appearance,Urine CLEAR (Clear); Bilirubin,Urine Negative (Negative); Blood, Urine Negative (Negative); Color,Urine YELLOW (Yellow); Glucose,Urine (UA) Negative (Negative); Ketones,Urine Negative (Negative); Leukocyte Esterase,Urine Negative (Negative); Nitrate,Urine Negative (Negative); PH,Urine 5.5 (5.0-8.5); Protein,Urine Negative (Negative); Specific Gravity, Urine >= 1.030 (1.005-1.030); Urobilinogen,Urine 0.2 EU/dl (0.2)
[2023-11-15 03:37] LABS: Bacteria,Urine Trace /lpf; WBC,Urine Occasional #/hpf (0-3)
--- NOTE | 2023-11-15 03:40 | HMH.EDGENADL ---
Discharge Plan Disposition Patient Disposition: Admitted Prescriptions Prescriptions: No Action ascorbate calcium (vitamin C) 500 mg tablet 500 mg PO DAILY metformin 1,000 mg tablet 1,000 mg PO BID Qty: 180 3RF omeprazole 40 mg capsule,delayed release(DR/EC) 40 mg PO DAILY 90 Days Qty: 90 1RF amitriptyline 10 mg tablet 10 mg PO HS Qty: 90 0RF metoprolol succinate 25 mg tablet extended release 24 hr 25 mg PO BID Qty: 180 3RF fenofibrate nanocrystallized 145 mg tablet 145 mg PO DAILY hydrochlorothiazide 25 mg tablet 25 mg PO DAILY lisinopril 40 mg tablet 40 mg PO DAILY loratadine [Allergy Relief (loratadine)] 10 mg tablet 10 mg PO DAILY rosuvastatin 40 mg tablet 40 mg PO DAILY Hair,Skin and Nails Tablet 1 tab PO DAILY omega-3 fatty acids-fish oil [Fish Oil] 360-1,200 mg capsule 1 cap PO DAILY Centrum Silver Women 8 mg iron-400 mcg-50 mcg tablet 1 tab PO DAILY vitamin E (dl, acetate) 180 mg (400 unit) capsule 180 mg PO DAILY cholecalciferol (vitamin D3) 25 mcg (1,000 unit) capsule 25 mcg PO DAILY glimepiride 4 mg tablet 4 mg PO BID Qty: 180 1RF pioglitazone 15 mg tablet 30 mg PO DAILY Qty: 90 3RF Referrals Follow up/Referrals: Fatou Abreu APRN [Primary Care Provider] - See instructions Clinical Impressions Clinical Impression: Right upper quadrant abdominal pain, Diaphoresis, Bradycardia Instructions Patient Instructions: DI for Acute Abdominal Pain Discharge ED Provider: Karina Padilla General Adult HPI General Chief complaint: Abdominal Pain Stated complaint: right side back pain, shooting abd pain Time Seen by Provider: 11/15/23 03:23 Mode of Arrival: Ambulatory Source of Information: Patient Limitations: No Limitations Description of Symptoms (Recalled from ER Triage Doc. by RN): pt c/o RLQ pain radating to back. History of Present Illness HPI narrative: 63-year-old female presents to the ER with concerns of right-sided abdominal pain radiating to her back. Patient states she was working in her garden this evening around 5 PM when the pain started. She does not remember any specific injury. Patient states she has right upper quadrant pain that radiates to her back. She tried eating dinner, however eating made her pain worse. She is nauseous but not having any vomiting. She has no fevers. No history of gallbladder or appendix removal. Patient does have a history of hysterectomy. ROS otherwise negative. Related Data Home Medications Medication Instructions Recorded Confirmed cholecalciferol (vitamin D3) 25 25 mcg PO DAILY 02/20/23 11/05/23 mcg (1,000 unit) capsule [id number] 8 mg-folic 400 1 tab PO DAILY 02/20/23 11/05/23 mcg-K 50 mcg-lutein 300 mcg tablet (Centrum Silver Women) multivitamin with minerals 1 tab PO DAILY 02/20/23 11/05/23 (Hair,Skin and Nails tablet) omega-3 fatty acids-fish oil 360 1 cap PO DAILY 02/20/23 11/05/23 mg-1,200 mg capsule (Fish Oil) vitamin E (dl, acetate) 180 mg 180 mg PO DAILY 02/20/23 11/05/23 (400 unit) capsule ascorbate calcium (vitamin C) 500 500 mg PO DAILY 04/21/23 11/05/23 mg tablet fenofibrate nanocrystallized 145 145 mg PO DAILY 11/05/23 mg tablet hydrochlorothiazide 25 mg tablet 25 mg PO DAILY 11/05/23 lisinopril 40 mg tablet 40 mg PO DAILY 11/05/23 loratadine 10 mg tablet (Allergy 10 mg PO DAILY 11/05/23 Relief (loratadine)) rosuvastatin 40 mg tablet 40 mg PO DAILY 11/05/23 Previous Rx's Medication Instructions Recorded glimepiride 4 mg tablet 4 mg PO BID #180 tabs 07/14/23 metformin 1,000 mg tablet 1,000 mg PO BID #180 tabs 09/15/23 amitriptyline 10 mg tablet 10 mg PO HS #90 tabs 11/05/23 metoprolol succinate 25 mg 25 mg PO BID #180 tabs 11/05/23 tablet,extended release 24 hr omeprazole 40 mg capsule,delayed 40 mg PO DAILY 90 days #90 caps 11/05/23 release pioglitazone 15 mg tablet 30 mg (2 x 15 mg) PO DAILY #90 tabs 11/10/23 Allergies Allergy/AdvReac Type Severity Reaction Status Date / Time No Known Allergies Allergy Verified 11/05/23 09:26 [facility] Disclaimer: The information contained in this section may have been updated after the patient was seen, as this information can be updated by other users. Medical History (Updated 11/15/23 @ 05:26 by Karina Padilla MD) Sinusitis Retraction pocket of tympanic membrane Deviated nasal septum Chronic sinusitis Acute hyperglycemia Allergic sinusitis Dysuria Abdominal pain Vaginal atrophy Vaginal Discharge delivery delivered Hyperlipemia History of hypertension Surgical History Status post ORIF of fracture of ankle H/O tubal ligation H/O total hysterectomy Family History Father Alcoholism Cancer lung Mother Cancer Lung Cancer Hyperlipidemia Hypertension Grandmother Diabetes Social History Smoking Status: Never smoker alcohol intake: never substance use type: denies use current occupational status: retired Travel in the last 8 weeks: None marital status: number of children: 2 ROS Obtained: Yes All systems reviewed & no additional complaints except as documented Constitutional Constitutional: Denies chills, Denies fever(s), Denies headache(s) and Denies weakness Eyes Eyes: Denies change in vision ENT Ears, Nose, Mouth, and Throat: Denies dizziness, Denies headache(s), Denies nasal congestion and Denies sore throat Cardiovascular Cardiovascular: Denies chest pain, Denies dyspnea and Denies leg edema Respiratory Respiratory: Denies cough and Denies dyspnea Gastrointestinal Gastrointestingal: Reports abdominal pain and nausea; Denies constipation, diarrhea or vomiting Genitourinary Female Genitourinary: Denies dysuria and Denies hematuria Musculoskeletal Musculoskeletal: Denies arthralgias, Denies myalgias, Denies numbness and Denies tingling Integumentary/Breasts Skin/Breast: Denies change in pigmentation Neurologic Neurologic: Denies dizziness, Denies headache(s), Denies numbness, Denies tingling and Denies weakness Physical Exam General General appearance: alert and in no apparent distress Head Head exam: atraumatic and normocephalic Eye Eye exam: Present PERRL and EOMI ENT ENT exam: Present mucous membranes moist Neck Neck exam: Present normal inspection and full ROM Chest Chest inspection: Present symmetric chest wall rise Respiratory Respiratory exam: Present normal lung sounds bilaterally; Absent respiratory distress, wheezes or stridor Cardiovascular Cardiovascular exam: Present normal rhythm and bradycardia Abdominal Exam Abdominal exam: Present soft and tenderness (Right upper quadrant); Absent distention, guarding or rebound Extremities Exam Extremities exam: Present full ROM Neurological Exam Neurological exam: Present alert and oriented X3; Absent motor sensory deficit Psychiatric Psychiatric exam: Present normal affect and normal mood Skin Skin exam: Present warm, dry and other (scattered petechiae on upper abdomen and breast, present for months according to pt) Medical Decision Making Medical Records Medical records reviewed: Yes I reviewed the patient's medical records. MR Comment: Review of most recent note from Fatou Abreu demonstrates patient was recently followed up for diabetes, palpitations, hypertension. Last hemoglobin A1c 9.9 on 11/05/2023. Zach Inquiry Pt receiving controlled substance: No Vital Signs: 11/15/23 03:13 Temperature 98.1 F Temperature Source Oral Pulse Rate [Right] 69 Respiratory Rate 16 Blood Pressure [Right Arm] 168/72 H Blood Pressure Mean [Right Arm] 104 02 Sat by Pulse Oximetry 97 Lab Data Lab Results 11/15/23 03:18: Urine Color Yellow, Urine Appearance Clear, Urine pH 5.5, Ur Specific [place] >= 1.030, Urine Protein Negative, Urine Glucose (UA) Negative, Urine Ketones Negative, Urine Blood Negative, Urine Nitrate Negative, Urine Bilirubin Negative, Urine Urobilinogen 0.2, Ur Leukocyte Esterase Negative, Urine RBC None, Urine WBC Occasional, Ur Squamous Epith Cells 3-5, Urine Bacteria Trace 11/15/23 03:36: WBC 10.8, RBC 4.62, Hgb 13.1, Hct 40.8, MCV 88.4, MCH 28.3, MCHC 32.1, RDW 13.9, Plt Count 238, MPV 9.1, Neut % (Auto) 65.3, Lymph % (Auto) 29.6, [place] % (Auto) 3.6, Eos % (Auto) 0.9, Baso % (Auto) 0.7, Neut # (Auto) 7.1, Lymph # (Auto) 3.2, [place] # (Auto) 0.4, Eos # (Auto) 0.1, Baso # (Auto) 0.1, PT 11.0, INR 1.02, Sodium 138, Potassium 3.6, Chloride 100, Carbon Dioxide 27, Anion Gap 14.6, BUN 31 H, Creatinine 1.10 H, Estimated Creat Clear 54, Estimated GFR 50 L, Est GFR ( Amer) 61, Glucose 211 H, Lactate 1.7, Calcium 10.7 H, Total Bilirubin 0.5, AST 35, ALT 31, Alkaline Phosphatase 42, Troponin I < 0.01, Total Protein 7.0, Albumin 4.5, Globulin 2.5, Albumin/Globulin Ratio 1.8, Lipase 319 H 11/15/23 04:59: Troponin I < 0.01 11/15/23 05:25: PT 11.4, INR 1.06, APTT 26.9 11/15/23 03:36 11/15/23 03:36 Orders (Tests/Meds): ED MEDICATIONS Generic Name Dose Route Start Last Admin Trade Name Freq PRN Reason Stop Dose Admin Acetaminophen 650 mg 11/15/23 05:28 Acetaminophen 325mg Tab PO 12/15/23 05:27 Q4HP PRN Fever or Mild Pain (1-3) Enoxaparin Sodium 40 mg 11/15/23 09:00 Enoxaparin 40mg/0.4ml Syringe SQ 12/15/23 08:59 DAILY MARIE Nitroglycerin/Dextrose 250 mls @ 1.5 mls/hr 11/15/23 05:15 11/15/23 05:32 Nitroglycerin 50mg/250ml D5w IV 12/15/23 05:14 10 mcg/min .Q24H MARIE 3 mls/hr Titration Protocol 5 MCG/MIN Lactated Ringer's 1,000 mls @ 50 mls/hr 11/15/23 05:30 Lactated Ringer's 1000 Ml Bag IV 12/15/23 05:29 .Q20H MARIE Insulin Human Lispro 0 unit 11/15/23 06:00 Humalog 100 Units/Ml 3ml Vial (Ssi) SQ 12/15/23 05:59 ACHS MARIE Protocol Morphine Sulfate 2 mg 11/15/23 05:28 Morphine 2mg/Ml Syringe IV 12/15/23 05:27 Q2HP PRN Severe Pain (7-10) Nicotine 21 mg 11/15/23 05:28 Nicotine 21mg/24hr Patch TD 12/15/23 05:27 DAILYP PRN Nicotine Cravings Ondansetron HCl 4 mg 11/15/23 05:28 Ondansetron 4mg/2ml Vial IV 12/15/23 05:27 Q8HP PRN Nausea Pantoprazole Sodium 40 mg 11/15/23 09:00 Pantoprazole 40mg Tablet PO 12/15/23 08:59 DAILY MARIE Sodium Chloride 10 ml 11/15/23 04:15 11/15/23 04:16 Sodium Chloride 0.9% 10ml Syr (Rad Only) IV 12/15/23 04:14 10 ml NEEDED PRN Administration Maintain IV Site Discontinued Medications Generic Name Dose Route Start Last Admin Trade Name Freq PRN Reason Stop Dose Admin Aspirin 324 mg 11/15/23 04:30 11/15/23 04:33 Aspirin 81mg Chewable Tablet PO 11/15/23 04:31 324 mg ONCE ONE Administration Hydromorphone HCl 0.5 mg 11/15/23 04:23 11/15/23 04:34 Hydromorphone 2mg/Ml Syringe IV 11/15/23 04:24 Not Given ONCE ONE Hydromorphone HCl 0.5 mg 11/15/23 04:43 11/15/23 04:51 Hydromorphone 2mg/Ml Syringe IV 11/15/23 04:44 0.5 mg ONCE ONE Administration Lactated Ringer's 1,000 mls @ 999 mls/hr 11/15/23 03:40 11/15/23 03:55 Lactated Ringer's 1000 Ml Bag IV 11/15/23 04:40 999 mls/hr .Q1H1M ONE Administration Iopamidol 75 ml 11/15/23 04:15 11/15/23 04:16 Iopamidol-370 (76%);100ml Bottle IV 11/15/23 04:16 75 ml ONCE ONE Administration Morphine Sulfate 4 mg 11/15/23 03:40 11/15/23 03:55 Morphine 4mg/Ml Syringe IV 11/15/23 03:41 4 mg ONCE ONE Administration Nitroglycerin 0.4 mg 11/15/23 04:36 11/15/23 04:39 Nitroglycerin 0.4mg Sl Tablet SL 11/15/23 04:37 0.4 mg ONCE ONE Administration Ondansetron HCl 4 mg 11/15/23 03:40 11/15/23 03:55 Ondansetron 4mg/2ml Vial IV 11/15/23 03:41 4 mg ONCE ONE Administration ORDERS Category Date Time Status CT abdomen pelvis w con Stat Cat Scan 11/15/23 03:25 Completed Cardiology Consult [Consult to Cardiology] [CONS] Cons 11/15/23 05:28 Active Routine CXR --portable [XR chest portable] Stat Exams 11/15/23 05:11 Completed Complete Blood Count Auto Diff AMLAB Lab 11/15/23 06:00 Ordered Complete Blood Count Auto Diff Stat Lab 11/15/23 03:36 Completed Comprehensive Metabolic Panel AMLAB Lab 11/15/23 06:00 Ordered Comprehensive Metabolic Panel Stat Lab 11/15/23 03:36 Completed Lactic Acid Stat Lab 11/15/23 03:36 Completed Lipase Stat Lab 11/15/23 03:36 Completed Magnesium AMLAB Lab 11/15/23 06:00 Ordered PT INR [Prothrombin Time INR] Stat Lab 11/15/23 05:25 Completed PTT [Activated Partial Thrombo Time] Stat Lab 11/15/23 05:25 Completed Prothrombin Time INR Stat Lab 11/15/23 03:36 Completed Trop I [Troponin I] Stat Lab 11/15/23 03:36 Completed Troponin I Q3H Lab 11/15/23 04:59 Completed Troponin I Q3H Lab 11/15/23 09:45 Ordered Urinalysis and Microscopic Stat Lab 11/15/23 03:18 Completed ECG Request Stat Y 11/15/23 04:22 Ordered HEART Score History (anamnesis): Moderately suspicious ECG: Non-specific disturbance Age: 45-65 years Risk factors: 3 or more risk factors Troponin: </= normal limit HEART Score: 5 Medical Decision Narrative: In summary, 63-year-old female with history of diabetes, hypertension, hyperlipidemia, all of which are comorbidities of current condition and increase her overall morbidity presents to the ER with concerns of acute onset right upper quadrant abdominal pain. Initial evaluation demonstrates patient is hemodynamically stable, afebrile, abdomen is nonacute but does demonstrate right upper quadrant tenderness, no rebound or guarding, remainder of exam benign. Patient endorses nausea but no vomiting. Differential diagnosis includes but is not limited to cholecystitis, cholelithiasis, appendicitis, bowel obstruction, pancreatitis, less likely but also considered is ACS, urinary tract infection, pyelonephritis. Patient also has petechiae in the upper abdomen and breasts. She states that these have been present for multiple months and are not better or worse than normal. She has never had them checked. Possibilities include thrombocytopenia and coagulopathy. Based on these concerns, appropriate workup including labs, imaging, urine studies, EKG were ordered. Patient received morphine, IV fluids, Zofran. EKG personally interpreted demonstrates sinus bradycardia, rate 53, normal axis, LA normal at 157, QTc normal at 404, no STEMI. Patient does have trace elevation in aVL and lead I, these do not meet criteria for STEMI. She does not have contiguous changes, she does have T wave inversion in lead III. Repeat EKG approximately 40 minutes after initial demonstrates sinus bradycardia, rate 49, normal axis, no LA or QTc prolongation, T wave inversion and slight depression appears to be deeper in lead III and slightly increased elevation of ST segment in lead aVL. Patient continues to be diaphoretic and is showing persistent signs of pain. [address] Blanc and discussed patient's EKG findings as well as her labs which include an undetectably low troponin, findings of mild pancreatitis with lipase 319, no findings of biliary pathology. We reviewed EKGs together. Her EKGs do not meet criteria for STEMI, and he believes the variability in patient's heart rate from the 80s to the 40s may be related to her vagaling secondary to pain. Patient has already received oral aspirin. He recommended administering oral nitroglycerin to help with blood pressure control as well as additional pain medications. He would also like to see a second troponin so I will call him back after these have been completed. Labs personally reviewed demonstrate no leukocytosis or anemia, CBC is normal, CMP with findings of mild kidney dysfunction, patient is receiving IV fluids. Undetectably low initial troponin. Lipase 319, possible pancreatitis. Coags pending. CT abdomen pelvis personally interpreted demonstrates no calcified gallstones, no obvious pericholecystic fluid, no significant inflammation surrounding the pancreas on my personal interpretation. See radiology read for final interpretation. Patient received Dilaudid and sublingual nitro. Her blood pressure improved to the 170s, she continued having significant heart rate variability with heart rates ranging from the low 40s to the low 80s. She was not holding her breath or bearing down which would cause increased vagal tone. Her heart rate seem to have the spontaneous variability. I called Dr. Blanc back with these concerns around 0500. Repeat troponin has been sent off but has not resulted yet. I still have high concern for cardiac pathology given patient's overall clinical picture, diaphoresis, and abnormalities on cardiac/vascular sonographer. He stated he is going to take the patient to cardiac [employer]. He would like her started on a nitro drip. He did not recommend heparin at this time. Patient was placed on the ZOLL pads out of caution. Chest x-ray personally interpreted demonstrates no acute intrathoracic abnormality, see radiology read for final interpretation. I discussed this case with the hospitalist as well as patient will be admitted after her cardiac cath. I noted that while we have concern for cardiac pathology, I am also concerned for possible pancreatitis. Patient has been accepted by the hospitalist. We have made multiple attempts to contact the patient's . Unfortunately we are unable to do so secondary to patient's not being able to have his phone on him at work. Police are going over to international crank shift to attempt to notify him of patient's status. 3rd EKG was performed and personally interpreted. Demonstrates sinus bradycardia, rate 54, normal axis, stable from second EKG, does not meet criteria for STEMI. Repeat troponin was only approximately 1 hour after the initial so that has limited utility, however it was also undetectable at less than 0.01. This does give some reassurance against acute cardiac event, however patient's clinical picture is still concerning for acute cardiac pathology. She remains diaphoretic, continues having pain, and has had heart rate as low as 41 and as high as 85 within less than a minute. We were able to contact patient's . He called the ER and I spoke with him over the phone. I updated him about patient's status that she is ill but stable and will be going to the cardiac [facility] [employer] [facility]. He is on his way from work. Patient has been taken to [facility] in stable condition. Critical Care Critical Care Time Critical Care Time: Yes Attestation: On 11/15/23, the high probability of a clinically significant, sudden or life threatening deterioration of the following system(s) required my full and direct attention, intervention and personal management. The time I documented below is in addition to time spent performing reported procedures but includes the following listed in this critical care notation. Total Time Total Critical Care Time: 35
[2023-11-15 03:46] LABS: Basophils # 0.1 K/mm3 (0-0.2); Basophils % 0.7 % (0.1-2.0); Eosinophils # 0.1 K/mm3 (0.0-0.4); Eosinophils % 0.9 % (0.1-12.0); Hematocrit 40.8 % (37.0-47.0); Hemoglobin 13.1 g/dL (12.2-16.2); Lymphocytes # 3.2 K/mm3 (0.7-4.5); Lymphocytes % 29.6 % (10-50); Mean Corpuscular HGB Conc 32.1 g/dL (31.8-35.4); Mean Corpuscular Hemoglobin 28.3 pg (27.0-31.2); Mean Corpuscular Volume 88.4 fl (81-99); Mean Platelet Volume 9.1 fl (7.4-10.4); Monocytes # 0.4 K/mm3 (0.1-1.0); Monocytes % 3.6 % (1.7-9.3); Neutrophils # 7.1 K/mm3 (1.8-7.8); Neutrophils % 65.3 % (37.0-80.0); Platelet Count 238 K/mm3 (142-424); Red Blood Count 4.62 M/mm3 (4.20-5.40); Red Cell Distribution Width 13.9 % (11.5-17.5); White Blood Count 10.8 K/mm3 (4.8-10.8)
--- NOTE | 2023-11-15 03:48 | ECG_ITS ---
APPROVED REPORT Exam: Resting ECG HR:53 bpm ECG Measurements Heart Rate 53 AXES WI 157 P 12 QRSd 123 QRS -1 QT 422 T 4 QTc 404 Conclusion SINUS BRADYCARDIA WITH SINUS ARRHYTHMIA MODERATE INTRAVENTRICULAR CONDUCTION DELAY [110+ ms QRS DURATION] BORDERLINE ECG Trace ST elevation in lead I, aVL, T wave inversion with trace ST depression in lead III, no contiguous changes, no STEMI. Electronically signed by : PRASAD WILL, 11/15/2023 05:59:30
[2023-11-15 03:53] LABS: Lactic Acid 1.7 mmol/L (0.7-2.1)
[2023-11-15 03:54] LABS: Alanine Aminotransferase 31 U/L (12-78); Albumin Level 4.5 g/dl (3.5-5.0); Albumin/Globulin Ratio 1.8 (1.1-1.8); Alkaline Phosphatase 42 U/L (38-126); Anion Gap 14.6 mEq/L (5-15); Aspartate Amino Transferase 35 U/L (14-36); Bilirubin,Total 0.5 mg/dl (0.2-1.3); Blood Urea Nitrogen 31 mg/dl (7-17); Calcium 10.7 mg/dl (8.4-10.2); Carbon Dioxide 27 mmol/L (22.0-30.0); Chloride 100 mmol/L (98-107); Creatinine Clearance Estimated 54 mL/min (50-200); Estimated Glomerular Filt Rate 50 ml/min (>60); GFR (African American) 61 ML/MIN (>60); Globulin 2.5 g/dL (1.3-3.2); Glucose 211 mg/dl (74-100); INR 1.02 (0.9-1.1); Lipase 319 U/L (23-300); Potassium 3.6 mmoL/L (3.5-5.1); Sodium 138 mmol/L (136-145)
[2023-11-15] MEDS: LACTATED RINGERS 1000ML 1,000 ML 999 ML IV (03:55)
[2023-11-15] MEDS: ONDANSETRON 4MG/2ML VIAL 4 MG IV (03:55)
[2023-11-15] MEDS: MORPHINE 4MG/ML SYRINGE 4 MG IV (03:55)
[2023-11-15 04:06] LABS: Troponin I < 0.01 ng/ml (0.00-0.034)
[2023-11-15] MEDS: SODIUM CHLORIDE 0.9% 10ML SYR (RAD ONLY) 10 ML IV (04:16)
[2023-11-15] MEDS: IOPAMIDOL-370 (76%);100ML BOTTLE 75 ML IV (04:16)
--- NOTE | 2023-11-15 04:26 | ECG_ITS ---
APPROVED REPORT Exam: Resting ECG HR:49 bpm ECG Measurements Heart Rate 49 AXES ID 165 P 66 QRSd 110 QRS 5 QT 455 T 2 QTc 426 Conclusion SINUS BRADYCARDIA MODERATE INTRAVENTRICULAR CONDUCTION DELAY [105+ ms QRS DURATION, 80+ ms Q/S IN V1/V2, NO Q AND 60+ ms R IN I/aVL/V5/V6] ABNORMAL ECG Electronically signed by : ERASTO ABDUL, 11/15/2023 15:30:41
--- NOTE | 2023-11-15 04:28 | PC.NURSE ---
Paging Dr Blanc per Dr Padilla's request. CR
--- NOTE | 2023-11-15 04:32 | PC.NURSE ---
on phone with santos
[2023-11-15] MEDS: ASPIRIN 81MG CHEWABLE TABLET 324 MG PO (04:33)
[2023-11-15] MEDS: NITROGLYCERIN 0.4MG SL TABLET 0.4 MG SL (04:39)
[2023-11-15] MEDS: HYDROMORPHONE 2MG/ML SYRINGE 0.5 MG IV (04:51)
--- NOTE | 2023-11-15 04:59 | PC.NURSE ---
Spoke with Shannan in the lab. They are going to run repeat Trop per Dr. Padilla's orders.
[2023-11-15] MEDS: NITROGLYCERIN IN 5 % DEXTROSE 250 ML 1.5 MG IV (05:08)
--- NOTE | 2023-11-15 05:11 | XR_ITS ---
PROCEDURE INFORMATION: Exam: XR Chest Exam date and time: 11/15/2023 5:10 AM Age: 63 years old Clinical indication: Pain; Chest pressure; Additional info: Abd pain TECHNIQUE: Imaging protocol: Radiologic exam of the chest. Views: 1 view. COMPARISON: CR XR CHEST 2V 11/05/2023 11:04 AM FINDINGS: Tubes, catheters and devices: Resuscitation devices appreciated over the patient's chest. Lungs: Unremarkable. No consolidation. Pleural spaces: Unremarkable. No pleural effusion. No pneumothorax. Heart/Mediastinum: Unremarkable. No cardiomegaly. Bones/joints: Scattered degenerative change of the visualized osseous structures. IMPRESSION: No acute cardiopulmonary findings.
--- NOTE | 2023-11-15 05:25 | ECG_ITS ---
APPROVED REPORT Exam: Resting ECG HR:54 bpm ECG Measurements Heart Rate 54 AXES MA 154 P 12 QRSd 115 QRS -12 QT 450 T -2 QTc 435 Conclusion SINUS BRADYCARDIA MODERATE INTRAVENTRICULAR CONDUCTION DELAY [110+ ms QRS DURATION] BORDERLINE ECG Electronically signed by : ERASTO ABDUL, 11/15/2023 15:30:17
[2023-11-15 05:27] LABS: Troponin I < 0.01 ng/ml (0.00-0.034)
--- NOTE | 2023-11-15 05:28 | IR_ITS ---
APPROVED REPORT Patient Location: Emergent [facility]: AUTUMN Graham RT (R) PROCEDURES Left heart catheterization Left ventriculogram Selective coronary angiogram INDICATION Acute coronary syndrome/unstable angina Informed consent was obtained prior to the procedure. COMPLICATIONS NONE Estimated Blood Loss: LESS THAN 10 ML TECHNIQUE One percent lidocaine used to anesthetize the right anterior aspect of the wrist. The right radial artery was accessed via the Seldinger technique. A 6 Czech sheath was placed in the right radial artery. 2.5 mg of Verapamil, 800 mcg of nitroglycerin, 1mg Lidocaine and 5000 U Heparin were given through the arterial sheath. The papa catheter was also used to perform left heart catheterization, left ventriculogram and selective coronary angiogram. At the end of the procedure the sheath was removed good hemostasis was achieved using Traclet band, patient was transferred to the postop holding area in stable condition. ANGIOGRAPHIC RESULTS The left main artery Normal The left anterior descending artery Is proximally normal had mid vessel 10% luminal irregularities. Distal vessel was tortuous consistent with hypertensive vasculopathy The circumflex artery Nondominant with mild 10% luminal irregularities The right coronary artery Dominant with mild proximal mid vessel 10 to 20% stenoses The [place] ventriculogram reveals Hyperdynamic 75% The left ventricular end-diastolic pressure 20 mmHg IMPRESSION Mild diffuse luminal irregularities Tortuous LAD right coronary artery consistent with hypertensive vasculopathy Hyperdynamic ventricle Elevated LVEDP PLAN 1. Supportive care 2. Continue additional workup for unexplained etiologies for patient's symptoms Electronically signed by : Bert Blanc MD 11/15/2023 06:14:16
[2023-11-15 05:38] LABS: Activated Partial Thrombo Time 26.9 seconds (22.8-30.6); INR 1.06 (0.9-1.1); Prothrombin Time 11.4 seconds (10.1-12.5)
[2023-11-15] MEDS: HEPARIN 1,000 UNITS/500ML NS (CATH LAB) 3000 UNIT IV (06:09)
[2023-11-15] MEDS: LIDOCAINE 1% 10ML MDV 20 ML IJ (06:09)
[2023-11-15] MEDS: NITROGLYCERIN 800MCG/8ML SYR (CATH LAB) 800 MCG IA (06:09)
[2023-11-15] MEDS: diphenhydrAMINE 50MG/ML VIAL 50 MG IV (06:10)
[2023-11-15] MEDS: VERAPAMIL 2.5MG/ML 2ML VIAL 2.5 MG IV (06:10)
[2023-11-15] MEDS: MIDAZOLAM 2MG/2ML VIAL 1 MG IV (06:12)
[2023-11-15] MEDS: FENTANYL 100MCG/2ML VIAL 50 MCG IV (06:12)
[2023-11-15] MEDS: 0.9 % SODIUM CHLORIDE 500 ML 25 ML IV (06:13)
--- NOTE | 2023-11-15 06:46 | PC.NURSE ---
Patient arrived to floor via stretcher from blood bank laboratory technologist at 6:39.
[2023-11-15] MEDS: IOPAMIDOL-370 (76%);100ML BOTTLE 80 ML IV (06:54)
[2023-11-15] MEDS: MORPHINE 2MG/ML SYRINGE 2 MG IV (07:53)
--- NOTE | 2023-11-15 07:53 | P.HP_ITS ---
History of Present Illness *Admission Date: 11/15/23 *Reason for visit:: Abdominal and back pain *History of present illness: 63-year-old female who presented to the ER because of complaint of of abdominal pain radiating to her back. Also having some upper abdominal pain. Workup in the ER initiated, EKG with minor ST changes. Initial troponin negative. Given diffuse pain, findings on EKG, patient was taken to the [facility] for evaluation. She also complains of pain worse with eating. Occasional nausea but no vomiting. No fevers. Had a bowel movement yesterday. Afebrile and on room air. Initial workup showing elevated creatinine at 1.1 and BUN of 31. Glucose in the 2-300 range. Lipase 319. Unclear etiology of patient's symptoms. Given diffuse complaints and EKG changes, cath was performed. Found to have nonflow- limiting disease. Patient does have elevated A1c earlier this month at 9.9. Medicine was consulted for admission for further evaluation of abdominal pain/chest pain. On arrival to the floor, patient is feeling somewhat better after pain medication. Denies any shortness of breath. Is hemodynamically stable. Abdomen is mildly tender diffusely. Reviewed CT of abdomen which was obtained in the ER. Shows diffuse stool burden and significant contents in her stomach. Patient has been hesitant to take insulin in the past and has been a diabetic for over 15 years. A1c has consistently been poorly controlled. Has intermittent constipation. Concern for her abdomen being the source of her discomfort and differential includes components of gastroparesis, constipation, gallbladder disease, appendicitis, or pancreatitis. CT of abdomen did not show any inflammation of appendix or gallbladder. Lipase is marginally elevated. [facility] Disclaimer: The information contained in this section may have been updated after the patient was seen, as this information can be updated by other users. Medical History Abdominal pain Diabetes mellitus, type 2 Sinusitis Retraction pocket of tympanic membrane Deviated nasal septum Chronic sinusitis Acute hyperglycemia Allergic sinusitis Dysuria Vaginal atrophy Vaginal Discharge delivery delivered Hyperlipemia History of hypertension Surgical History Status post ORIF of fracture of ankle H/O tubal ligation H/O total hysterectomy Family History Father Alcoholism Cancer Mother Cancer Hyperlipidemia Hypertension Grandmother Diabetes Social History Smoking Status: Never smoker alcohol intake: never substance use type: denies use current occupational status: retired Travel in the last 8 weeks: None marital status: number of children: 2 Review of Systems Review of Systems Review of systems (narrative): 14 point review of systems performed, pertinent positives and negatives as per HPI Constitutional Constitutional: Denies headache(s) and Denies weakness ENT Ears, Nose, Mouth, and Throat: Denies dizziness and Denies headache(s) *Musculoskeletal Musculoskeletal: Denies numbness and Denies tingling *Neurologic Neurologic: Denies dizziness, Denies headache(s), Denies numbness, Denies tingling and Denies weakness Meds Home Medications and Allergies Home Medications Medication Instructions Recorded Confirmed Type cholecalciferol (vitamin D3) 25 25 mcg PO DAILY 02/20/23 11/15/23 History mcg (1,000 unit) capsule cnttvyyl-[id number]-nqof 8 mg-folic 400 1 tab PO DAILY 02/20/23 11/15/23 History mcg-K 50 mcg-lutein 300 mcg tablet (Centrum Silver Women) omega-3 fatty acids-fish oil 360 1 cap PO DAILY 02/20/23 11/15/23 History mg-1,200 mg capsule (Fish Oil) vitamin E (dl, acetate) 180 mg 180 mg PO DAILY 02/20/23 11/15/23 History (400 unit) capsule ascorbate calcium (vitamin C) 500 500 mg PO DAILY 04/21/23 11/15/23 History mg tablet fenofibrate nanocrystallized 145 145 mg PO DAILY 11/05/23 11/15/23 History mg tablet hydrochlorothiazide 25 mg tablet 25 mg PO DAILY 11/05/23 11/15/23 History lisinopril 40 mg tablet 40 mg PO DAILY 11/05/23 11/15/23 History loratadine 10 mg tablet (Allergy 10 mg PO DAILY 11/05/23 11/15/23 History Relief (loratadine)) omeprazole 40 mg capsule,delayed 40 mg PO DAILY 90 days #90 caps 11/05/23 11/15/23 Rx release rosuvastatin 40 mg tablet 40 mg PO DAILY 11/05/23 11/15/23 History aspirin 81 mg tablet 81 mg PO DAILY 11/15/23 11/15/23 History glimepiride 4 mg tablet 4 mg PO BIDWMEAL 11/15/23 11/15/23 History metformin 1,000 mg tablet 1,000 mg PO BIDWMEAL 11/15/23 11/15/23 History pioglitazone 15 mg tablet 15 mg PO DAILYDM 11/15/23 11/15/23 History New Prescriptions to Start Prescriptions: Allergies Allergy/AdvReac Type Severity Reaction Status Date / Time methylprednisolone Allergy Intermediate shortness Verified 11/15/23 08:07 of air Exam Data for Last 24 hours Vital signs and Labs for Last 24 Hours: Temp Pulse Resp BP Pulse Ox O2 Del Method 97.5 F L 84 16 150/75 H 94 L Room Air 11/15/23 06:40 11/15/23 07:25 11/15/23 07:25 11/15/23 07:25 11/15/23 07:25 11/15/23 07:25 Laboratory Results - last 24 hr 11/15/23 03:18: Urine Color Yellow, Urine Appearance Clear, Urine pH 5.5, Ur Specific [place] >= 1.030, Urine Protein Negative, Urine Glucose (UA) Negative, Urine Ketones Negative, Urine Blood Negative, Urine Nitrate Negative, Urine Bilirubin Negative, Urine Urobilinogen 0.2, Ur Leukocyte Esterase Negative, Urine RBC None, Urine WBC Occasional, Ur Squamous Epith Cells 3-5, Urine Bacteria Trace 11/15/23 03:36: WBC 10.8, RBC 4.62, Hgb 13.1, Hct 40.8, MCV 88.4, MCH 28.3, MCHC 32.1, RDW 13.9, Plt Count 238, MPV 9.1, Neut % (Auto) 65.3, Lymph % (Auto) 29.6, [place] % (Auto) 3.6, Eos % (Auto) 0.9, Baso % (Auto) 0.7, Neut # (Auto) 7.1, Lymph # (Auto) 3.2, [place] # (Auto) 0.4, Eos # (Auto) 0.1, Baso # (Auto) 0.1, PT 11.0, INR 1.02, Sodium 138, Potassium 3.6, Chloride 100, Carbon Dioxide 27, Anion Gap 14.6, BUN 31 H, Creatinine 1.10 H, Estimated Creat Clear 54, Estimated GFR 50 L, Est GFR ( Amer) 61, Glucose 211 H, Lactate 1.7, Calcium 10.7 H, Total Bilirubin 0.5, AST 35, ALT 31, Alkaline Phosphatase 42, Troponin I < 0.01, Total Protein 7.0, Albumin 4.5, Globulin 2.5, Albumin/Globulin Ratio 1.8, Lipase 319 H 11/15/23 04:59: Troponin I < 0.01 11/15/23 05:25: PT 11.4, INR 1.06, APTT 26.9 I & O for Last 24 hours: Intake & Output 11/12/23 11/13/23 11/14/23 11/15/23 23:59 23:59 23:59 23:59 Intake Total 500.6 / 500.6 Balance 500.6 / 500.6 Weight 69.853 kg Constitutional Constitutional: no acute distress, average body habitus and cooperative *Routine HEENT Exam Head: Present normocephalic Eye: Present EOMI and PERRL ENT: Present mucous membranes moist *Routine Neck Exam Neck: Present supple; Absent lymphadenopathy Routine Chest/Breast/Axilla Exam Chest wall: Absent tenderness *Routine Respiratory Exam Respiratory: Present CTA bilaterally; Absent rhonchi, wheezes or crackles *Routine Cardiovascular Exam Cardiovascular: Present RRR *Routine Abdominal Exam Abdominal: Present soft, normoactive bowel sounds and tenderness (Mild, worse in right hemiabdomen) *Routine Rectal Exam Rectal:: deferred *Routine Genitalia Exam Genitalia:: deferred *Routine Extremities Exam Extremities: Absent cyanosis, clubbing or edema *Routine Skin Exam Skin: Present intact and warm; Absent rash *Routine Neurological Exam Neurological: Present alert, oriented X3 and moving all extremities; Absent altered mental status Assessment and Plan *Assessment and plan (1) Abdominal pain: Status: Acute Category: Medical Code(s): R10.9 - Unspecified abdominal pain (2) Diabetes mellitus: Status: Acute Qualifiers: Diabetes mellitus type: type 2 Category: Medical Code(s): E11.9 - Type 2 diabetes mellitus without complications (3) Diabetic neuropathy: Status: Acute Category: Medical Code(s): E11.40 - Type 2 diabetes mellitus with diabetic neuropathy, unspecified (4) Hyperlipemia: Status: Acute Category: Medical Code(s): E78.5 - Hyperlipidemia, unspecified (5) Hypertension: Status: Acute Category: Medical Code(s): I10 - Essential (primary) hypertension Plan 63-year-old female with complaint of pain in her abdomen and back. Taken to [facility] due to minor elevations of ST waves in anterior leads. Found to have, nonflow limiting disease. Discussed case with the ER, request admission for further workup. Medicine agreed to admit. Problems addressed as follows: Abdominal pain Constipation -Lipase elevated at 319, this is marginal with no findings on CT to support pancreatitis -Extensive stool burden. -Initiate docusate/senna twice daily scheduled. 1 dose MiraLAX today. Had bowel movement yesterday that was large and formed. Will hold on enema at this time. -Abdominal pain better with pain medication. Continue morphine 2 mg IV every 2 hours as needed. Monitor for toxicity -Reglan 5 mg with meals to promote gastric motility and to help with nausea -CBC, CMP, magnesium and lipid panel ordered for the morning. Uncontrolled diabetes -A1c from earlier this month 9.9. Only on oral regimen at home. Patient does not have insurance to cover medications. -Initiated on sliding scale insulin and fingersticks ACHS. Will initiate once daily long-acting Lantus 15 units tonight. Counseled on need for insulin given her persistently uncontrolled diabetes and risk for developing complications such as coronary artery disease, kidney disease, neuropathy, gastroparesis. Concerned that component of her pain is related to gastroparesis given the extent of stomach contents on CT. -Nursing working with patient in regard to education on insulin administration. Hypertension Hyperlipidemia GERD - Pantoprazole 40 mg daily - lisinopril 40 mg daily for hypertension DNI Heparinized and [facility], Lovenox 40 mg daily Regular diet
--- NOTE | 2023-11-15 08:46 | PC.NURSE ---
Addendum entered by Ellen Mix RN 11/15/23 09:46: 0930 no bleeding noted, 2 ml removed 0945 TR band removed. no hematoma noted, no bleeding noted. site cleaned with chlorhexadine and covered with t/t Addendum entered by Ellen Mix RN 11/15/23 09:29: 0845 no bleeding noted, 2 ml removed 0900 no bleeding noted, 2 ml removed 0915 no bleeding noted, 2 ml removed Original Note: air removed from tr band: 0800 no bleeding noted, 2 ml removed 0815 no bleeding noted, 2 ml removed 0830 no bleeding noted, 2 ml removed
[2023-11-15 09:30] LABS: Basophils # 0.1 K/mm3 (0-0.2); Basophils % 0.8 % (0.1-2.0); Eosinophils % 0.4 % (0.1-12.0); Hematocrit 40.1 % (37.0-47.0); Hemoglobin 13.1 g/dL (12.2-16.2); Lymphocytes # 1.6 K/mm3 (0.7-4.5); Lymphocytes % 17.7 % (10-50); Mean Corpuscular HGB Conc 32.6 g/dL (31.8-35.4); Mean Platelet Volume 8.7 fl (7.4-10.4); Monocytes # 0.2 K/mm3 (0.1-1.0); Monocytes % 1.7 % (1.7-9.3); Neutrophils # 7.3 K/mm3 (1.8-7.8); Neutrophils % 79.4 % (37.0-80.0); Platelet Count 232 K/mm3 (142-424); Red Blood Count 4.51 M/mm3 (4.20-5.40); White Blood Count 9.3 K/mm3 (4.8-10.8)
[2023-11-15 09:34] LABS: Alanine Aminotransferase 33 U/L (12-78); Albumin Level 4.3 g/dl (3.5-5.0); Albumin/Globulin Ratio 1.9 (1.1-1.8); Alkaline Phosphatase 40 U/L (38-126); Anion Gap 14.7 mEq/L (5-15); Aspartate Amino Transferase 34 U/L (14-36); Bilirubin,Total 0.5 mg/dl (0.2-1.3); Blood Urea Nitrogen 29 mg/dl (7-17); Calcium 10.4 mg/dl (8.4-10.2); Carbon Dioxide 26 mmol/L (22.0-30.0); Chloride 99 mmol/L (98-107); Creatinine Clearance Estimated 64 mL/min (50-200); Estimated Glomerular Filt Rate 63 ml/min (>60); GFR (African American) 77 ML/MIN (>60); Globulin 2.3 g/dL (1.3-3.2); Glucose 320 mg/dl (74-100); Magnesium 1.4 mg/dl (1.6-2.3); Potassium 3.7 mmoL/L (3.5-5.1); Sodium 136 mmol/L (136-145); Total Protein,Serum 6.6 g/dl (6.3-8.2)
--- NOTE | 2023-11-15 09:46 | [facility].PHAINT1 ---
Pharmacy Intervention Comments: MEDICATION RECONCILIATION COMPLETE USING LIST FROM MOST RECENT MD OFFICE VISIT AND EXTERNAL PHARMACY FILL HISTORY.
[2023-11-15] MEDS: PANTOPRAZOLE 40MG TABLET 40 MG PO (10:17)
[2023-11-15] MEDS: POLYETHYLENE GLYCOL 3350 17 GM PACKET PO (12:01)
[2023-11-15] MEDS: SENNOSIDES 8.6MG/DOCUSATE 50MG TABLET 1 TAB PO ×2 (12:01→20:25)
[2023-11-15] MEDS: METOCLOPRAMIDE 5MG TABLET 5 MG PO ×2 (12:01→16:39)
[2023-11-15] MEDS: LISINOPRIL 20MG TABLET 40 MG PO (12:01)
[2023-11-15] MEDS: MAGNESIUM SULFATE IN WATER 2 GM/50 ML PIGGYBACK IV (12:02)
[2023-11-15] MEDS: humaLOG 100 UNITS/ML 3ML VIAL (SSI) SQ ×2 (12:08→20:24)
[2023-11-15 12:27] LABS: POC Glucose,Bedside 322 (70-110)
[2023-11-15 16:47] LABS: POC Glucose,Bedside 146 (70-110)
[2023-11-15] MEDS: INSULIN GLARGINE 100 UNITS/ML 3ML FLEXPEN 15 UNIT SQ (20:23)
[2023-11-15 20:26] LABS: POC Glucose,Bedside 184 (70-110)
[2023-11-15] MEDS: ACETAMINOPHEN 325MG TAB 650 MG PO (20:46)
--- NOTE | 2023-11-15 21:22 | PC.NURSE ---
Education for insulin administration was provided to pt with returned demonstration of both using a syringe with short-acting insulin and a pen with long-acting insulin. Education also provided on the difference of short and long-acting insulin. Pt did well with administration and was able to do complete on her own with only instruction and observation.
[2023-11-16] VITALS: PULSE 61
[2023-11-16 04:00] VITALS: BP 134/74; PULSE 54; PULSE 56; RESP 17; TEMP 36.6; O2SAT 94; BMI 26.9
[2023-11-16] MEDS: METOCLOPRAMIDE 5MG TABLET 5 MG PO (05:54)
--- NOTE | 2023-11-16 06:01 | PC.NURSE ---
Pt has not voiced any complaints to staff during shift. NSR/sinus luis with bbb on tele with HR 50-70. DSG to right radial cath site CDI. Call light within reach.
[2023-11-16 06:44] LABS: POC Glucose,Bedside 146 (70-110)
[2023-11-16 06:58] LABS: Alanine Aminotransferase 29 U/L (12-78); Albumin Level 3.9 g/dl (3.5-5.0); Albumin/Globulin Ratio 1.6 (1.1-1.8); Alkaline Phosphatase 35 U/L (38-126); Anion Gap 10.9 mEq/L (5-15); Aspartate Amino Transferase 33 U/L (14-36); Bilirubin,Total 0.5 mg/dl (0.2-1.3); Blood Urea Nitrogen 21 mg/dl (7-17); Calcium 9.4 mg/dl (8.4-10.2); Carbon Dioxide 27 mmol/L (22.0-30.0); Chloride 107 mmol/L (98-107); Chol/HDL Ratio 3.1 (1-3.5); Cholesterol 188 mg/dl (140-200); Creatinine Clearance Estimated 61 mL/min (50-200); Estimated Glomerular Filt Rate 56 ml/min (>60); GFR (African American) 68 ML/MIN (>60); Globulin 2.4 g/dL (1.3-3.2); Glucose 155 mg/dl (74-100); HDL Cholesterol 61 mg/dl (40-60); Magnesium 2.1 mg/dl (1.6-2.3); Potassium 3.9 mmoL/L (3.5-5.1); Sodium 141 mmol/L (136-145); Total Protein,Serum 6.3 g/dl (6.3-8.2); Triglycerides 155 mg/dl (30-150); VLDL Cholesterol 31 mg/dL (0-40)
[2023-11-16 07:09] LABS: Direct LDL Cholesterol 105.38 mg/dL (100-129)
[2023-11-16 07:17] LABS: Basophils # 0.1 K/mm3 (0-0.2); Basophils % 0.6 % (0.1-2.0); Eosinophils # 0.1 K/mm3 (0.0-0.4); Eosinophils % 1.1 % (0.1-12.0); Hematocrit 39.4 % (37.0-47.0); Hemoglobin 12.6 g/dL (12.2-16.2); Lymphocytes # 3.5 K/mm3 (0.7-4.5); Mean Corpuscular HGB Conc 31.8 g/dL (31.8-35.4); Mean Corpuscular Hemoglobin 28.6 pg (27.0-31.2); Mean Corpuscular Volume 89.8 fl (81-99); Mean Platelet Volume 8.6 fl (7.4-10.4); Monocytes # 0.4 K/mm3 (0.1-1.0); Neutrophils # 4.7 K/mm3 (1.8-7.8); Neutrophils % 53.4 % (37.0-80.0); Platelet Count 218 K/mm3 (142-424); Red Blood Count 4.39 M/mm3 (4.20-5.40); Red Cell Distribution Width 14.1 % (11.5-17.5); White Blood Count 8.8 K/mm3 (4.8-10.8)
--- NOTE | 2023-11-16 07:55 | EXP.DC.SUM ---
General Admission date:: 11/15/23 Discharge date: 11/16/23 HPI HPI HPI: 63-year-old female who presented to the ER because of complaint of of abdominal pain radiating to her back. Also having some upper abdominal pain. Workup in the ER initiated, EKG with minor ST changes. Initial troponin negative. Given diffuse pain, findings on EKG, patient was taken to the [facility] for evaluation. She also complains of pain worse with eating. Occasional nausea but no vomiting. No fevers. Had a bowel movement yesterday. Afebrile and on room air. Initial workup showing elevated creatinine at 1.1 and BUN of 31. Glucose in the 2-300 range. Lipase 319. Unclear etiology of patient's symptoms. Given diffuse complaints and EKG changes, cath was performed. Found to have nonflow-limiting disease. Patient does have elevated A1c earlier this month at 9.9. Medicine was consulted for admission for further evaluation of abdominal pain/chest pain. On arrival to the floor, patient is feeling somewhat better after pain medication. Denies any shortness of breath. Is hemodynamically stable. Abdomen is mildly tender diffusely. Reviewed CT of abdomen which was obtained in the ER. Shows diffuse stool burden and significant contents in her stomach. Patient has been hesitant to take insulin in the past and has been a diabetic for over 15 years. A1c has consistently been poorly controlled. Has intermittent constipation. Concern for her abdomen being the source of her discomfort and differential includes components of gastroparesis, constipation, gallbladder disease, appendicitis, or pancreatitis. CT of abdomen did not show any inflammation of appendix or gallbladder. Lipase is marginally elevated. Hospital Course Hospital Course Hospital Course: 63-year-old female with complaint of pain in her abdomen and back. Taken to [facility] due to minor elevations of ST waves in anterior leads. Found to have, nonflow limiting disease. Discussed case with the ER, request admission for further workup. Medicine agreed to admit. Stable overnight. No further episodes of chest pain. Had a bowel movement, feeling better. Benign exam on day of discharge. Problems addressed as follows: Abdominal pain Constipation -Lipase elevated at 319, this is marginal with no findings on CT to support pancreatitis. Extensive stool burden on imaging. Initiated on bowel regimen. Had bowel movement, feeling better. No further abdominal pain on day of discharge. Recommend continuing stool softener daily for goal of 1-2 soft stools daily. Tolerating regular diet. Uncontrolled diabetes -A1c from earlier this month 9.9. Only on oral regimen at home. Patient does not have insurance to cover medications. Started on insulin glargine 15 units. Tolerated well with morning glucose 155. Will increase to 20 units nightly. Patient self-administered insulin during admission. [place] comfortable doing this. Discharged home with Lantus pen. Will continue 20 units nightly along with her glimepiride 4 mg twice a and metformin 1000 mg twice daily. She has not started pioglitazone as of yet, will continue to hold this for now until she follows with her PCP. Counseled on monitoring glucose daily in the morning. Expressed optimism to patient that this will help her gets her her goal of A1c less than 7. Concerned that her longstanding uncontrolled diabetes putting her at risk for conditions like kidney disease, gastroparesis, neuropathy, among other conditions. This only complicates her abdominal pain issue. Close follow-up with PCP for further management. Hypertension Hyperlipidemia GERD -Continue home regimens. Stable for discharge home Exam Data for Last 24 hours Vital signs and Labs for Last 24 Hours: Temp Pulse Resp BP Pulse Ox O2 Del Method 97.9 F 56 L 17 134/74 94 L Room Air 11/16/23 04:00 11/16/23 04:00 11/16/23 04:00 11/16/23 04:00 11/16/23 04:00 11/16/23 06:30 Laboratory Results - last 24 hr 11/15/23 09:18: WBC 9.3, RBC 4.51, Hgb 13.1, Hct 40.1, MCV 89.0, MCH 29.0, MCHC 32.6, RDW 14.0, Plt Count 232, MPV 8.7, Neut % (Auto) 79.4, Lymph % (Auto) 17.7, Dickens % (Auto) 1.7, Eos % (Auto) 0.4, Baso % (Auto) 0.8, Neut # (Auto) 7.3, Lymph # (Auto) 1.6, Dickens # (Auto) 0.2, Eos # (Auto) 0.0, Baso # (Auto) 0.1, Sodium 136, Potassium 3.7, Chloride 99, Carbon Dioxide 26, Anion Gap 14.7, BUN 29 H, Creatinine 0.90, Estimated Creat Clear 64, Estimated GFR 63, Est GFR ( Amer) 77 D, Glucose 320 H D, Calcium 10.4 H, Magnesium 1.4 L, Total Bilirubin 0.5, AST 34, ALT 33, Alkaline Phosphatase 40, Total Protein 6.6, Albumin 4.3, Globulin 2.3, Albumin/Globulin Ratio 1.9 H 11/15/23 12:04: POC Glucose 322 H* 11/15/23 16:38: POC Glucose 146 H 11/15/23 20:11: POC Glucose 184 H 11/16/23 05:54: POC Glucose 146 H 11/16/23 06:33: WBC 8.8, RBC 4.39, Hgb 12.6, Hct 39.4, MCV 89.8, MCH 28.6, MCHC 31.8, RDW 14.1, Plt Count 218, MPV 8.6, Neut % (Auto) 53.4, Lymph % (Auto) 40.0, Dickens % (Auto) 5.0, Eos % (Auto) 1.1, Baso % (Auto) 0.6, Neut # (Auto) 4.7, Lymph # (Auto) 3.5, Dickens # (Auto) 0.4, Eos # (Auto) 0.1, Baso # (Auto) 0.1, Sodium 141, Potassium 3.9, Chloride 107, Carbon Dioxide 27, Anion Gap 10.9, BUN 21 H D, Creatinine 1.00, Estimated Creat Clear 61, Estimated GFR 56 L, Est GFR ( Amer) 68, Glucose 155 H D, Calcium 9.4, Magnesium 2.1 D, Total Bilirubin 0.5, AST 33, ALT 29, Alkaline Phosphatase 35 L, Total Protein 6.3, Albumin 3.9, Globulin 2.4, Albumin/Globulin Ratio 1.6, Triglycerides 155 H, Cholesterol 188, LDL Cholesterol Direct 105.38, VLDL Cholesterol 31, HDL Cholesterol 61 H, Cholesterol/HDL Ratio 3.1 I & O for Last 24 hours: Intake & Output 11/13/23 11/14/23 11/15/23 11/16/23 23:59 23:59 23:59 23:59 Intake Total 1445.6 / 1445.6 Output Total 0 / 0 0 / 0 Balance 1445.6 / 1445.6 0 / 0 Weight 69.853 kg 66.224 kg Constitutional Constitutional: no acute distress, average body habitus and cooperative *Routine HEENT Exam Head: Present normocephalic Eye: Present EOMI and PERRL ENT: Present mucous membranes moist *Routine Neck Exam Neck: Present supple; Absent lymphadenopathy *Routine Respiratory Exam Respiratory: Present CTA bilaterally *Routine Cardiovascular Exam Cardiovascular: Present RRR *Routine Abdominal Exam Abdominal: Present soft and normoactive bowel sounds; Absent tenderness *Routine Rectal Exam Patient deferred: visual exam *Routine Exam Patient deferred: external exam *Routine Extremities Exam Extremities: Absent cyanosis, clubbing or edema *Routine Skin Exam Skin: Present warm; Absent rash *Routine Neurological Exam Neurological: Present alert, oriented X3 and moving all extremities; Absent altered mental status Results Data Completed and Pending Labs on day of discharge: Labs from last 24 hours 11/16/23 11/16/23 11/15/23 06:33 05:54 20:11 WBC 8.8 RBC 4.39 Hgb 12.6 Hct 39.4 MCV 89.8 MCH 28.6 MCHC 31.8 RDW 14.1 Plt Count 218 MPV 8.6 Neut % (Auto) 53.4 Lymph % (Auto) 40.0 Dickens % (Auto) 5.0 Eos % (Auto) 1.1 Baso % (Auto) 0.6 Neut # (Auto) 4.7 Lymph # (Auto) 3.5 Dickens # (Auto) 0.4 Eos # (Auto) 0.1 Baso # (Auto) 0.1 Sodium 141 Potassium 3.9 Chloride 107 Carbon Dioxide 27 Anion Gap 10.9 BUN 21 H D Creatinine 1.00 Estimated Creat Clear 61 Estimated GFR 56 L Est GFR ( Amer) 68 Glucose 155 H D POC Glucose 146 H 184 H Calcium 9.4 Magnesium 2.1 D Total Bilirubin 0.5 AST 33 ALT 29 Alkaline Phosphatase 35 L Total Protein 6.3 Albumin 3.9 Globulin 2.4 Albumin/Globulin Ratio 1.6 Triglycerides 155 H Cholesterol 188 LDL Cholesterol Direct 105.38 VLDL Cholesterol 31 HDL Cholesterol 61 H Cholesterol/HDL Ratio 3.1 11/15/23 11/15/23 11/15/23 16:38 12:04 09:18 WBC 9.3 RBC 4.51 Hgb 13.1 Hct 40.1 MCV 89.0 MCH 29.0 MCHC 32.6 RDW 14.0 Plt Count 232 MPV 8.7 Neut % (Auto) 79.4 Lymph % (Auto) 17.7 Dickens % (Auto) 1.7 Eos % (Auto) 0.4 Baso % (Auto) 0.8 Neut # (Auto) 7.3 Lymph # (Auto) 1.6 Dickens # (Auto) 0.2 Eos # (Auto) 0.0 Baso # (Auto) 0.1 Sodium 136 Potassium 3.7 Chloride 99 Carbon Dioxide 26 Anion Gap 14.7 BUN 29 H Creatinine 0.90 Estimated Creat Clear 64 Estimated GFR 63 Est GFR ( Amer) 77 D Glucose 320 H D POC Glucose 146 H 322 H* Calcium 10.4 H Magnesium 1.4 L Total Bilirubin 0.5 AST 34 ALT 33 Alkaline Phosphatase 40 Total Protein 6.6 Albumin 4.3 Globulin 2.3 Albumin/Globulin Ratio 1.9 H Triglycerides Cholesterol LDL Cholesterol Direct VLDL Cholesterol HDL Cholesterol Cholesterol/HDL Ratio DS: Diagnosis Discharge Diagnosis (1) Abdominal pain: Status: Acute Code(s): R10.9 - Unspecified abdominal pain (2) Diabetes mellitus: Status: Acute Code(s): E11.9 - Type 2 diabetes mellitus without complications Qualifiers: Diabetes mellitus type: type 2 (3) Diabetic neuropathy: Status: Acute Code(s): E11.40 - Type 2 diabetes mellitus with diabetic neuropathy, unspecified (4) Hyperlipemia: Status: Acute Code(s): E78.5 - Hyperlipidemia, unspecified (5) Hypertension: Status: Acute Code(s): I10 - Essential (primary) hypertension Meds Home Medications and Allergies Home Medications Medication Instructions Recorded Confirmed Type cholecalciferol (vitamin D3) 25 25 mcg PO DAILY 02/20/23 11/15/23 History mcg (1,000 unit) capsule [id number] 8 mg-folic 400 1 tab PO DAILY 02/20/23 11/15/23 History mcg-K 50 mcg-lutein 300 mcg tablet (Centrum Silver Women) omega-3 fatty acids-fish oil 360 1 cap PO DAILY 02/20/23 11/15/23 History mg-1,200 mg capsule (Fish Oil) vitamin E (dl, acetate) 180 mg 180 mg PO DAILY 02/20/23 11/15/23 History (400 unit) capsule ascorbate calcium (vitamin C) 500 500 mg PO DAILY 04/21/23 11/15/23 History mg tablet fenofibrate nanocrystallized 145 145 mg PO DAILY 11/05/23 11/15/23 History mg tablet hydrochlorothiazide 25 mg tablet 25 mg PO DAILY 11/05/23 11/15/23 History lisinopril 40 mg tablet 40 mg PO DAILY 11/05/23 11/15/23 History loratadine 10 mg tablet (Allergy 10 mg PO DAILY 11/05/23 11/15/23 History Relief (loratadine)) omeprazole 40 mg capsule,delayed 40 mg PO DAILY 90 days #90 caps 11/05/23 11/15/23 Rx release rosuvastatin 40 mg tablet 40 mg PO DAILY 11/05/23 11/15/23 History aspirin 81 mg tablet 81 mg PO DAILY 11/15/23 11/15/23 History glimepiride 4 mg tablet 4 mg PO BIDWMEAL 11/15/23 11/15/23 History metformin 1,000 mg tablet 1,000 mg PO BIDWMEAL 11/15/23 11/15/23 History pioglitazone 15 mg tablet 15 mg PO DAILYDM 11/15/23 11/15/23 History insulin glargine 100 unit/mL (3 20 unit (0.2 mL) SQ HS 30 days #6 11/16/23 Rx mL) subcutaneous pen (Lantus mL Solostar U-100 Insulin) pen needle, diabetic 31 gauge x #100 ea 11/16/23 Rx 1/4 sennosides 8.6 mg-docusate sodium 1 tab PO BID PRN Constipation 30 11/16/23 Rx 50 mg tablet (Stimulant Laxative days #60 tabs Plus) New Prescriptions to Start Prescriptions: insulin glargine [Lantus Solostar U-100 Insulin] Patrick [place] pen needle, diabetic Patrick Washington sennoyennifers-docusate sodium [Stimulant Laxative Plus] Patrick Washington Allergies Allergy/AdvReac Type Severity Reaction Status Date / Time methylprednisolone Allergy Intermediate shortness Verified 11/15/23 08:07 of air Discharge Plan Disposition Patient Disposition: Home, Self-Care Condition: Fair Follow up Plan Follow up with: Bert Blanc MD [Staff Physician] - Enter time for follow up (please call for follow up appointment) Fatou Abreu APRN [Primary Care Provider] - Enter time for follow up (please call fro follow up appointment) Prescriptions/Medication Reconciliation: New sennosides-docusate sodium [Stimulant Laxative Plus] 8.6-50 mg Tablet 1 tab PO BID PRN (Reason: Constipation) 30 Days Qty: 60 0RF insulin glargine [Lantus Solostar U-100 Insulin] 100 unit/mL (3 mL) Insulin Pen 20 unit SQ HS 30 Days Qty: 6 0RF (DME) pen needle, diabetic 31 gauge x 1/4 needle See Rx Instructions .ROUTE .MEDSUPPLY Qty: 100 0RF Rx Instructions: As directed Continued ascorbate calcium (vitamin C) 500 mg tablet 500 mg PO DAILY omeprazole 40 mg capsule,delayed release(DR/EC) 40 mg PO DAILY 90 Days Qty: 90 1RF fenofibrate nanocrystallized 145 mg tablet 145 mg PO DAILY hydrochlorothiazide 25 mg tablet 25 mg PO DAILY lisinopril 40 mg tablet 40 mg PO DAILY loratadine [Allergy Relief (loratadine)] 10 mg tablet 10 mg PO DAILY rosuvastatin 40 mg tablet 40 mg PO DAILY omega-3 fatty acids-fish oil [Fish Oil] 360-1,200 mg capsule 1 cap PO DAILY Centrum Silver Women 8 mg iron-400 mcg-50 mcg tablet 1 tab PO DAILY vitamin E (dl, acetate) 180 mg (400 unit) capsule 180 mg PO DAILY cholecalciferol (vitamin D3) 25 mcg (1,000 unit) capsule 25 mcg PO DAILY metformin 1,000 mg tablet 1,000 mg PO BIDWMEAL glimepiride 4 mg tablet 4 mg PO BIDWMEAL aspirin 81 mg Tablet 81 mg PO DAILY Held pioglitazone 15 mg tablet 15 mg PO DAILYDM Hold Instructions: do not start until follow-up with PCP Rx Instructions: pt has not started this medication yet, 11/15/23 Problem Reconciliation Problems Reviewed?: Yes Patient Discharge Instructions ACTIVITY: Continue current activity DIET: diabetic diet and low fat, low cholesterol Patient Instructions: DI for Cardiac Catheterization, DI for Abdominal Pain-Adult, DI for Surgical Site Infection Providers Primary Care Provider: Fatou Abreu Admit Provider: Patrick Washington Attending Provider: Patrick Washington
[2023-11-16 08:00] VITALS: BP 154/80; PULSE 75; PULSE 80; RESP 18; TEMP 36.8; O2SAT 98
[2023-11-16 08:57] VITALS: PULSE 75; O2SAT 98
[2023-11-16] MEDS: ENOXAPARIN 40MG/0.4ML SYRINGE 40 MG SQ (08:57)
[2023-11-16] MEDS: PANTOPRAZOLE 40MG TABLET 40 MG PO (08:57)
[2023-11-16] MEDS: LISINOPRIL 20MG TABLET 40 MG PO (08:57)
[2023-11-16] MEDS: SENNOSIDES 8.6MG/DOCUSATE 50MG TABLET 1 TAB PO (08:57)
--- NOTE | 2023-11-16 10:11 | HMH.PHAINT1 ---
Pharmacy Intervention Comments: DISCHARGE MEDICATION COUNSELING PROVIDED. DISCUSSED THE FOLLOWING MEDICATION CHANGES: -HOLD PIOGLITAZONE UNTIL YOU FOLLOW UP WITH YOUR PRIMARY CARE DOCTOR. -START LANTUS (FOR BLOOD SUGAR, 20 UNITS SQ AT BEDTIME, RISK OF LOW BLOOD SUGAR/SIGNS AND SYMPTOMS, INJECTION TECHNIQUE, USE NEW PEN NEEDLE EACH TIME) -START DOCUSATE/SENNA (STOOL SOFTENER, TWICE DAILY NEEDED, MAY CAUSE BLOATING, TAKE WITH FULL GLASS OF WATER). PATIENT VERBALIZED NO QUESTIONS AT THIS TIME.
--- NOTE | 2023-11-18 12:43 | CARE MANAGER ---
Attempted to contact patient x2 related to hospital discharge. Left VM message. MATTHEW Shields
== END 2023-11-16 11:05 | disposition home or self-care (01) ==
LOC: ER 05:19 → 2ND 06:21
PROVIDERS: Internal Medicine; Nurse Practitioner Family; Admitting Provider Internal Medicine Adolescent Medicine; Emergency Provider Emergency Medicine; PCP Nurse Practitioner Family; Visit Provider Internal Medicine Adolescent Medicine
DX: R10.9 Unspecified abdominal pain (principal); E11.40 Type 2 diabetes mellitus with diabetic neuropathy, unspecified; E78.5 Hyperlipidemia, unspecified; I10 Essential (primary) hypertension; Z79.84 Long term (current) use of oral hypoglycemic drugs; Z79.899 Other long term (current) drug therapy; I25.110 Atherosclerotic heart disease of native coronary artery with unstable angina pectoris; E11.65 Type 2 diabetes mellitus with hyperglycemia
CPT/HCPCS: 36415; 71045; 74177; 80053; 80061; 81001; 82962; 83605; 83690; 83735; 84484; 85025; 85610; 85730; 93005; 93458; 99152; 99291; C1725; C1769; G0378; J1644; J2405; J3475; Q9967

== ENCOUNTER 2024-05-31 13:51 | Outpatient (CLI) | payer MEDICARE, SELFPAY ==
[2024-05-31 13:02] LABS: Microscopic, Urine URINE MICROSCOPIC (MICROSCOPIC)
[2024-05-31 13:45] LABS: Appearance,Urine CLEAR (Clear); Bilirubin,Urine Negative (Negative); Blood, Urine Negative (Negative); Color,Urine YELLOW (Yellow); Glucose,Urine (UA) TRACE (Negative); Ketones,Urine Negative (Negative); Leukocyte Esterase,Urine Negative (Negative); Nitrate,Urine Negative (Negative); PH,Urine 6.5 (5.0-8.5); Protein,Urine Negative (Negative); Urobilinogen,Urine 0.2 EU/dl (0.2)
[2024-05-31 13:57] LABS: Microalbumin/Creatinine Ratio 48.3
[2024-05-31 14:11] LABS: Albumin Level 4.8 g/dl (3.5-5.0); Chloride 97 mmol/L (98-107); Potassium 5.1 mmoL/L (3.5-5.1); Sodium 133 mmol/L (136-145)
[2024-05-31 14:13] LABS: Amylase 59 U/L (30-110)
[2024-05-31 14:14] LABS: Alanine Aminotransferase 36 U/L (12-78); Albumin/Globulin Ratio 2.2 (1.1-1.8); Alkaline Phosphatase 38 U/L (38-126); Anion Gap 15.1 mEq/L (5-15); Aspartate Amino Transferase 34 U/L (14-36); Bilirubin,Total 0.6 mg/dl (0.2-1.3); Blood Urea Nitrogen 29 mg/dl (7-17); Calcium 11.2 mg/dl (8.4-10.2); Carbon Dioxide 26 mmol/L (22.0-30.0); Estimated Glomerular Filt Rate 50 ml/min (>60); GFR (African American) 61 ML/MIN (>60); Globulin 2.2 g/dL (1.3-3.2); Glucose 224 mg/dl (74-100); HDL Cholesterol 49 mg/dl (40-60); Lipase 199 U/L (23-300)
[2024-05-31 14:15] LABS: Chol/HDL Ratio 3.9 (1-3.5); Cholesterol 189 mg/dl (140-200); Triglycerides 113 mg/dl (30-150); VLDL Cholesterol 23 mg/dL (0-40)
[2024-05-31 14:29] LABS: Creatinine,Urine Random 24 mg/dL (Not Estab.); Hemoglobin A1C 9.9 % (4.0-6.0)
== END 2024-05-31 23:59 | disposition home or self-care (01) ==
LOC: LAB.DROPOF 13:51
PROVIDERS: PCP Nurse Practitioner Family; Visit Provider Nurse Practitioner Family
DX: R10.9 Unspecified abdominal pain (principal); E11.9 Type 2 diabetes mellitus without complications; I10 Essential (primary) hypertension; R14.2 Eructation; E78.5 Hyperlipidemia, unspecified
CPT/HCPCS: 36415; 80053; 80061; 81001; 82043; 82150; 82570; 83036; 83690; 84156; 87086

== ENCOUNTER 2024-07-27 11:59 | Emergency (ER) | payer MEDICARE, SELFPAY ==
[2024-07-27 12:01] VITALS: BP 195/79; PULSE 82; RESP 16; TEMP 37.4; O2SAT 100; BMI 27.4
--- NOTE | 2024-07-27 12:18 | ED_ITS ---
<Statement entered by Roselyn Macedo DO - 07/27/24 16:48> I was consulted by the MARI, and we discussed the complexity of the problems being addressed. I approved the treatment and management plan for this patient's care in the emergency department, thus performing a substantive portion of the medical decision making. Roselyn Macedo DO Discharge Plan Disposition Patient Disposition: Home, Self-Care Condition: Good Prescriptions Prescriptions: No Action ascorbate calcium (vitamin C) 500 mg tablet 500 mg PO DAILY fenofibrate nanocrystallized 145 mg tablet 145 mg PO DAILY hydrochlorothiazide 25 mg tablet 25 mg PO DAILY lisinopril 40 mg tablet 40 mg PO DAILY loratadine [Allergy Relief (loratadine)] 10 mg tablet 10 mg PO DAILY omega-3 fatty acids-fish oil [Fish Oil] 360-1,200 mg capsule 1 cap PO DAILY Centrum Silver Women 8 mg iron-400 mcg-50 mcg tablet 1 tab PO DAILY cholecalciferol (vitamin D3) 25 mcg (1,000 unit) capsule 25 mcg PO DAILY ondansetron 4 mg tablet,disintegrating 4 mg PO Q8H PRN (Reason: nausea and vomiting) Qty: 30 0RF insulin glargine [Lantus Solostar U-100 Insulin] 100 unit/mL (3 mL) insulin pen 30 unit SQ HS Qty: 15 11RF fluconazole 150 mg tablet 150 mg PO Q3D Qty: 2 0RF rosuvastatin 40 mg tablet 40 mg PO DAILY azithromycin 250 mg tablet See Rx Instructions PO .COMPLEX Qty: 6 0RF Rx Instructions: For 250 mg dose pack: take 500 mg today (day 1), then 250 mg for 4 days (days 2-5) PO azelastine 137 mcg (0.1 %) spray,non-aerosol 2 spray intranasal BID Qty: 30 0RF Rx Instructions: administer into each nostril glimepiride 4 mg tablet 4 mg PO BIDWMEAL Qty: 180 3RF omeprazole 40 mg capsule,delayed release(DR/EC) 40 mg PO DAILY 90 Days Qty: 90 1RF metformin 1,000 mg tablet 1,000 mg PO BIDWMEAL aspirin 81 mg Tablet 81 mg PO DAILY sennosides-docusate sodium [Stimulant Laxative Plus] 8.6-50 mg Tablet 1 tab PO BID PRN (Reason: Constipation) 30 Days Qty: 60 0RF (DME) pen needle, diabetic 31 gauge x 1/4 needle See Rx Instructions .ROUTE .MEDSUPPLY Qty: 100 0RF Rx Instructions: As directed Referrals Follow up/Referrals: Fatou Abreu APRN [Primary Care Provider] - See instructions Alejandro Sterling MD [Staff Physician] - See instructions Activity Restrictions/Add. Instructions Additional Instructions/Restrictions: As we discussed I am going to refer you to cardiology to refine your high blood pressure medication regimen. Please take your blood pressure 2 times a day and keep a record to take to your cardiology appointment. Follow-up with your PCP for recheck if you have continuing symptoms symptoms worsen or do not improve or return to the ER as needed. Clinical Impressions Clinical Impression: Hypertension, uncontrolled Print Language Print Language: Albanian Discharge ED Provider: Roselyn Macedo General Adult HPI <ERIKA Andrea - Last Filed: 07/27/24 20:53> General Chief complaint: Dizziness Stated complaint: high B/P, sent by doctors office Time Seen by Provider: 07/27/24 12:20 Mode of Arrival: Ambulatory Source of Information: Patient Limitations: No Limitations Description of Symptoms (Recalled from ER Triage Doc. by RN): pt presents to ED with c/o high blood pressure. pt reports that for the past 3 days she has had headache, high blood pressure readings, dizziness, lightheaded. pt called pcp and she was out of the office, pt was told to come to ED. History of Present Illness HPI narrative: Patient presents for evaluation of elevated blood pressure and dizziness. Patient states that she has been having elevated blood pressures over the last 3 days. She reports that she has been having some headache and dizziness with her associated pressures. She denies any shortness of breath chest pain fever chills hemoptysis hematochezia melena nausea vomiting diarrhea. She denies any focal neurologic deficits Related Data Home Medications ?Medication ?Instructions ?Recorded ?Confirmed cholecalciferol (vitamin D3) 25 25 mcg PO DAILY 02/20/23 07/09/24 mcg (1,000 unit) capsule [id number] 8 mg-folic 400 1 tab PO DAILY 02/20/23 07/09/24 mcg-K 50 mcg-lutein 300 mcg tablet (Centrum Silver Women) omega-3 fatty acids-fish oil 360 1 cap PO DAILY 02/20/23 07/09/24 mg-1,200 mg capsule (Fish Oil) ascorbate calcium (vitamin C) 500 500 mg PO DAILY 04/21/23 07/09/24 mg tablet fenofibrate nanocrystallized 145 145 mg PO DAILY 11/05/23 07/09/24 mg tablet hydrochlorothiazide 25 mg tablet 25 mg PO DAILY 11/05/23 07/09/24 lisinopril 40 mg tablet 40 mg PO DAILY 11/05/23 07/09/24 loratadine 10 mg tablet (Allergy 10 mg PO DAILY 11/05/23 07/09/24 Relief (loratadine)) aspirin 81 mg tablet 81 mg PO DAILY 11/15/23 07/09/24 metformin 1,000 mg tablet 1,000 mg PO BIDWMEAL 11/15/23 07/09/24 rosuvastatin 40 mg tablet 40 mg PO DAILY 05/31/24 07/09/24 Previous Rx's ?Medication ?Instructions ?Recorded pen needle, diabetic 31 gauge x #100 ea 11/16/2307/10 sennosides 8.6 mg-docusate sodium 1 tab PO BID PRN Constipation 30 11/16/23 50 mg tablet (Stimulant Laxative days #60 tabs Plus) glimepiride 4 mg tablet 4 mg PO BIDWMEAL #180 tabs 01/21/24 omeprazole 40 mg capsule,delayed 40 mg PO DAILY 90 days #90 caps 05/06/24 release fluconazole 150 mg tablet 150 mg PO Q3D 2 doses #2 tabs 05/31/24 insulin glargine 100 unit/mL (3 30 unit (0.3 mL) SQ HS #15 mL 05/31/24 mL) subcutaneous pen (Lantus Solostar U-100 Insulin) ondansetron 4 mg disintegrating 4 mg PO Q8H PRN nausea and 05/31/24 tablet vomiting #30 tabs azelastine 137 mcg (0.1 %) nasal 2 spray intranasal BID #30 mL 07/09/24 spray azithromycin 250 mg tablet See Rx Instructions PO .COMPLEX #6 07/09/24 tabs Allergies Allergy/AdvReac Type Severity Reaction Status Date / Time methylprednisolone Allergy Intermediate shortness Verified 07/09/24 13:21 of air [facility] <ERIKA Andrea - Last Filed: 07/27/24 20:53> [facility] Disclaimer: The information contained in this section may have been updated after the patient was seen, as this information can be updated by other users. Medical History Abdominal pain Diaphoresis Dyspnea Encounter for screening examination for sexually transmitted disease Left leg pain Ear congestion Right upper quadrant abdominal pain Diabetes mellitus, type 2 Sinusitis Retraction pocket of tympanic membrane Deviated nasal septum Chronic sinusitis Acute hyperglycemia Allergic sinusitis Dysuria Vaginal atrophy Vaginal Discharge delivery delivered Hyperlipemia History of hypertension Surgical History Status post ORIF of fracture of ankle H/O tubal ligation H/O total hysterectomy Family History Father Alcoholism Cancer lung Mother Cancer Lung Cancer Hyperlipidemia Hypertension Grandmother Diabetes Social History Smoking Status: Never smoker alcohol intake: never substance use type: denies use current occupational status: retired Travel in the last 8 weeks: None marital status: number of children: 2 Have you lived/traveled outside [place] in past 30 days?: No Contact w/someone who lives/traveled outside US past 30 days?: No Exposure to someone with infectious disease in past 14 days?: No Do you have a fever (greater than 100.4 F or 38 C)?: No Have you tested positive for COVID-19: No Exposed to someone with COVID-19 in past 14 days?: No Do you have a sore throat?: No Do you have a cough?: No Do you have any weakness?: No Do you have any diarrhea?: No Are you experiencing any unusual bleeding?: No Do you have any muscle aches/pain?: No Do you have any abdominal pain?: No Are you experiencing loss of taste or smell?: No Other Medical History Have you received the Flu Vaccine for this season: No Have you received the Pneumonia Vaccine: No <ERIKA Andrea - Last Filed: 07/27/24 20:53> ROS Obtained: Yes Systems reviewed as appropriate & no additional complaints except as documented Physical Exam <ERIKA Andrea - Last Filed: 07/27/24 20:53> General General appearance: alert and in no apparent distress Respiratory Respiratory exam: Present normal lung sounds bilaterally Cardiovascular Cardiovascular exam: Present regular rate Neurological Exam Neurological exam: Present alert, oriented X3, CN II-XII intact and normal gait; Absent motor sensory deficit Medical Decision Making <ERIKA Andrea - Last Filed: 07/27/24 20:53> Medical Records Medical records reviewed: Yes I reviewed the patient's medical records. Screening: Per USPSTF and CDC recommendations, given the prevalence of disease in our region, it is our hospital?s policy to screen for HIV and viral Hepatitis for all patients aged 18 and over and those with ongoing risk factors. Zach Inquiry Pt receiving controlled substance: No Vital Signs: 07/27/24 12:01 07/27/24 12:30 07/27/24 12:45 Temperature 99.4 F Temperature Source Oral Pulse Rate 84 71 Pulse Rate [Left Radial] 82 Respiratory Rate 16 Blood Pressure 189/66 H 183/77 H Blood Pressure [Right Arm] 195/79 H Blood Pressure Mean [Right Arm] 117 02 Sat by Pulse Oximetry 100 96 96 Oxygen Delivery Method Room Air Room Air Room Air 07/27/24 14:19 Temperature 98.2 F Temperature Source Pulse Rate 74 Pulse Rate [Left Radial] Respiratory Rate 20 Blood Pressure 168/79 H Blood Pressure [Right Arm] Blood Pressure Mean [Right Arm] 02 Sat by Pulse Oximetry Oxygen Delivery Method Room Air Lab Data Lab results reviewed: Yes I reviewed the patient's lab results. Lab Results 07/27/24 12:15: WBC 9.3, RBC 5.07, Hgb 14.1, Hct 42.0, MCV 82.8, MCH 27.8, MCHC 33.6, RDW 13.3, Plt Count 264, MPV 11.0 H, Neut % (Auto) 64.5, Lymph % (Auto) 29.2, Todd % (Auto) 5.0, Eos % (Auto) 0.6, Baso % (Auto) 0.5, Neut # (Auto) 6.0, Lymph # (Auto) 2.7, Todd # (Auto) 0.5, Eos # (Auto) 0.1, Baso # (Auto) 0.1, Sodium 136, Potassium 3.7, Chloride 101, Carbon Dioxide 25, Anion Gap 13.7, BUN 23 H, Creatinine 1.00, Estimated Creat Clear 62, Estimated GFR 56 L, Est GFR ( Amer) 68, Glucose 257 H, Calcium 10.5 H, Total Bilirubin 0.7, AST 48 H, ALT 42, Alkaline Phosphatase 40, Total Protein 7.3, Albumin 4.9, Globulin 2.4, A lbumin/Globulin Ratio 2.0 H, HCV Ab [place] w/Rflx PCR Qn Negative, HIV Ag/Ab Combo Qual Negative 07/27/24 12:15 07/27/24 12:15 Orders (Tests/Meds): ED MEDICATIONS Discontinued Medications Generic Name Dose Route Start Last Admin Trade Name Freq PRN Reason Stop Dose Admin Acetaminophen 1,000 mg 07/27/24 13:01 07/27/24 13:11 Acetaminophen 500mg Tab PO 07/27/24 13:02 1,000 mg ONCE ONE Administration Meclizine HCl 25 mg 07/27/24 13:01 07/27/24 13:11 Meclizine 25mg Tablet PO 07/27/24 13:02 25 mg ONCE ONE Administration ORDERS Category Date Time Status Complete Blood Count Auto Diff Stat Lab 07/27/24 12:15 Completed Comprehensive Metabolic Panel Stat Lab 07/27/24 12:15 Completed HIV Combo Stat Lab 07/27/24 12:15 Completed Hepatitis C Ab Qual. W/ RFX Stat Lab 07/27/24 12:15 Completed Medical Decision Narrative: In summary patient is a 64-year-old female who presents to the emergency department for evaluation of elevated blood pressure and dizziness. Patient is initially hypertensive on arrival at 195/79 pulse 82 with normal sinus rhythm on the bedside monitor respiratory rate 16 satting at 100% on room air upon arrival, with a temperature of 99.4. Physical exam is remarkable for a Abhi Coma Score 15 patient is awake alert and oriented person place and circumstance cranial nerves II through XII are intact grossly to exam patient has no nuchal rigidity bilateral tympanic membranes are normal today. Breath sounds are clear and equal bilaterally to the bases heart sounds are normal S1-S2 abdominal exam is benign soft nontender no rebound no guarding no rigidity normal bowel sounds. Patient has no focal neurologic deficits and is able to ambulate in the emergency department without ataxia.. Differential diagnosis includes uncontrolled hypertension versus peripheral vertigo. Initial workup will be conducted with hematologic labs twelve-lead EKG. Initial interventions include continuous cardiac monitoring and pulse oximetry meclizine and Tylenol. Initial workup reviewed by me shows that her hematologic labs are nonactionable although her glucose is 257 she is a type II diabetic,. Upon repeat evaluation patient's blood pressure is normalized to 168/79 and her dizziness has resolved.. Given this I have referred the patient to cardiology for better blood pressure management as she is on 40 mg once a day of lisinopril and hydrochlorothiazide. Via interactive discussion and patient directed decision making and discharge patient is comfortable going home with close follow-up with cardiology. She is going to go today to make her appointment. <Roselyn Macedo, DO - Last Filed: 07/27/24 13:22> Vital Signs: 07/27/24 12:01 07/27/24 12:30 07/27/24 12:45 Temperature 99.4 F Temperature Source Oral Pulse Rate 84 71 Pulse Rate [Left Radial] 82 Respiratory Rate 16 Blood Pressure 189/66 H 183/77 H Blood Pressure [Right Arm] 195/79 H Blood Pressure Mean [Right Arm] 117 02 Sat by Pulse Oximetry 100 96 96 Oxygen Delivery Method Room Air Room Air Room Air 07/27/24 14:19 Temperature 98.2 F Temperature Source Pulse Rate 74 Pulse Rate [Left Radial] Respiratory Rate 20 Blood Pressure 168/79 H Blood Pressure [Right Arm] Blood Pressure Mean [Right Arm] 02 Sat by Pulse Oximetry Oxygen Delivery Method Room Air Lab Data Lab Results 07/27/24 12:15: WBC 9.3, RBC 5.07, Hgb 14.1, Hct 42.0, MCV 82.8, MCH 27.8, MCHC 33.6, RDW 13.3, Plt Count 264, MPV 11.0 H, Neut % (Auto) 64.5, Lymph % (Auto) 29.2, Todd % (Auto) 5.0, Eos % (Auto) 0.6, Baso % (Auto) 0.5, Neut # (Auto) 6.0, Lymph # (Auto) 2.7, Todd # (Auto) 0.5, Eos # (Auto) 0.1, Baso # (Auto) 0.1, Sodium 136, Potassium 3.7, Chloride 101, Carbon Dioxide 25, Anion Gap 13.7, BUN 23 H, Creatinine 1.00, Estimated Creat Clear 62, Estimated GFR 56 L, Est GFR ( Amer) 68, Glucose 257 H, Calcium 10.5 H, Total Bilirubin 0.7, AST 48 H, ALT 42, Alkaline Phosphatase 40, Total Protein 7.3, Albumin 4.9, Globulin 2.4, A lbumin/Globulin Ratio 2.0 H, HCV Ab [place] w/Rflx PCR Qn Negative, HIV Ag/Ab Combo Qual Negative Orders (Tests/Meds): ED MEDICATIONS Discontinued Medications Generic Name Dose Route Start Last Admin Trade Name Geraldq PRN Reason Stop Dose Admin Acetaminophen 1,000 mg 07/27/24 13:07/27/24 13:11 Acetaminophen 500mg Tab PO 07/27/24 13:02 1,000 mg ONCE ONE Administration Meclizine HCl 25 mg 07/27/24 13:07/27/24 13:11 Meclizine 25mg Tablet PO 07/27/24 13:02 25 mg ONCE ONE Administration ORDERS Category Date Time Status Complete Blood Count Auto Diff Stat Lab 07/27/24 12:15 Completed Comprehensive Metabolic Panel Stat Lab 07/27/24 12:15 Completed HIV Combo Stat Lab 07/27/24 12:15 Completed Hepatitis C Ab Qual. W/ RFX Stat Lab 07/27/24 12:15 Completed ECG Data Tracing #1: I reviewed this ECG and interpreted as documented below: Normal sinus rhythm with a ventricular rate of [address] changes concerning for STEMI. Nonspecific ST/T wave changes. Normal QTc interval at 415 ms ECG initial impression date: 07/27/24 ECG initial impression time: 12:38 Critical Care <ERIKA Andrea - Last Filed: 07/27/24 20:53> Critical Care Time Critical Care Time: No
[2024-07-27 12:30] VITALS: BP 189/66; PULSE 84; O2SAT 96
[2024-07-27 12:30] LABS: Basophils # 0.1 K/mm3 (0-0.2); Basophils % 0.5 % (0.1-2.0); Eosinophils # 0.1 K/mm3 (0.0-0.4); Eosinophils % 0.6 % (0.1-12.0); Hemoglobin 14.1 g/dL (12.2-16.2); Lymphocytes # 2.7 K/mm3 (0.7-4.5); Lymphocytes % 29.2 % (10-50); Mean Corpuscular HGB Conc 33.6 g/dL (31.8-35.4); Mean Corpuscular Hemoglobin 27.8 pg (27.0-31.2); Mean Corpuscular Volume 82.8 fl (81-99); Monocytes # 0.5 K/mm3 (0.1-1.0); Neutrophils % 64.5 % (37.0-80.0); Platelet Count 264 K/mm3 (142-424); Red Blood Count 5.07 M/mm3 (4.20-5.40); Red Cell Distribution Width 13.3 % (11.5-17.5); White Blood Count 9.3 K/mm3 (4.8-10.8)
--- NOTE | 2024-07-27 12:34 | ECG_ITS ---
APPROVED REPORT Exam: Resting ECG HR:75 bpm ECG Measurements Heart Rate 75 AXES MD 161 P 58 QRSd 102 QRS -16 QT 386 T 34 QTc 415 Conclusion SINUS RHYTHM SEPTAL MYOCARDIAL INFARCTION , OF INDETERMINATE AGE [40+ ms Q WAVE IN V1/V2] No STEMI Electronically signed by : JENNIFER VIVEROS, 07/27/2024 15:59:13
[2024-07-27 12:38] LABS: Alanine Aminotransferase 42 U/L (12-78); Albumin Level 4.9 g/dl (3.5-5.0); Alkaline Phosphatase 40 U/L (38-126); Anion Gap 13.7 mEq/L (5-15); Aspartate Amino Transferase 48 U/L (14-36); Bilirubin,Total 0.7 mg/dl (0.2-1.3); Blood Urea Nitrogen 23 mg/dl (7-17); Calcium 10.5 mg/dl (8.4-10.2); Carbon Dioxide 25 mmol/L (22.0-30.0); Chloride 101 mmol/L (98-107); Creatinine Clearance Estimated 62 mL/min (50-200); Estimated Glomerular Filt Rate 56 ml/min (>60); GFR (African American) 68 ML/MIN (>60); Globulin 2.4 g/dL (1.3-3.2); Glucose 257 mg/dl (74-100); Potassium 3.7 mmoL/L (3.5-5.1); Sodium 136 mmol/L (136-145); Total Protein,Serum 7.3 g/dl (6.3-8.2)
[2024-07-27 12:45] VITALS: BP 183/77; PULSE 71; O2SAT 96
[2024-07-27] MEDS: ACETAMINOPHEN 500MG TAB 1000 MG PO (13:11)
[2024-07-27] MEDS: MECLIZINE 25MG TABLET 25 MG PO (13:11)
[2024-07-27 13:22] LABS: HIV Combo NEGATIVE (Negative)
[2024-07-27 13:30] LABS: Hepatitis C Ab Qual. W/ RFX NEGATIVE (Negative)
[2024-07-27 14:19] VITALS: BP 168/79; PULSE 74; RESP 20; TEMP 36.8; O2SAT 98
== END 2024-07-27 14:20 | disposition home or self-care (01) ==
PROVIDERS: Emergency Provider Emergency Medicine; PCP Nurse Practitioner Family
DX: I10 Essential (primary) hypertension (principal); R42 Dizziness and giddiness; R51.9 Headache, unspecified
CPT/HCPCS: 80053; 85025; 86803; 87389; 93005; 99283

== ENCOUNTER 2024-09-06 10:41 | Outpatient (CLI) | payer MEDICARE, SELFPAY ==
[2024-09-06 13:11] LABS: Microscopic, Urine URINE MICROSCOPIC (MICROSCOPIC)
[2024-09-06 13:54] LABS: Appearance,Urine CLEAR (Clear); Bilirubin,Urine Negative (Negative); Blood, Urine Negative (Negative); Color,Urine YELLOW (Yellow); Glucose,Urine (UA) 2+ (Negative); Ketones,Urine Negative (Negative); Leukocyte Esterase,Urine Negative (Negative); Nitrate,Urine Negative (Negative); Protein,Urine Negative (Negative); Specific Gravity, Urine 1.025 (1.005-1.030); Urobilinogen,Urine 0.2 EU/dl (0.2)
[2024-09-06 14:22] LABS: Alanine Aminotransferase 25 U/L (12-78); Albumin Level 4.8 g/dl (3.5-5.0); Albumin/Globulin Ratio 2.7 (1.1-1.8); Alkaline Phosphatase 38 U/L (38-126); Anion Gap 10.3 mEq/L (5-15); Aspartate Amino Transferase 24 U/L (14-36); Bilirubin,Total 0.3 mg/dl (0.2-1.3); Blood Urea Nitrogen 28 mg/dl (7-17); Calcium 10.2 mg/dl (8.4-10.2); Carbon Dioxide 26 mmol/L (22.0-30.0); Chloride 105 mmol/L (98-107); Chol/HDL Ratio 4.5 (1-3.5); Cholesterol 187 mg/dl (140-200); Creatinine,Urine Random 78 mg/dL (Not Estab.); Estimated Glomerular Filt Rate 56 ml/min (>60); GFR (African American) 68 ML/MIN (>60); Globulin 1.8 g/dL (1.3-3.2); Glucose 255 mg/dl (74-100); HDL Cholesterol 42 mg/dl (40-60); Potassium 4.3 mmoL/L (3.5-5.1); Sodium 137 mmol/L (136-145); Total Protein,Serum 6.6 g/dl (6.3-8.2); Total Protein,Urine Random < 5.0 mg/dL (0.0-12.0); Triglycerides 151 mg/dl (30-150); VLDL Cholesterol 30 mg/dL (0-40)
[2024-09-06 14:23] LABS: WBC,Urine Occasional #/hpf (0-3)
[2024-09-06 14:33] LABS: Direct LDL Cholesterol 117.23 mg/dL (100-129)
[2024-09-06 14:34] LABS: Hemoglobin A1C 10.1 % (4.0-6.0)
== END 2024-09-06 23:59 | disposition home or self-care (01) ==
LOC: LAB.DROPOF 09-08 12:21
PROVIDERS: PCP Nurse Practitioner Family; Visit Provider Nurse Practitioner Family
DX: E11.9 Type 2 diabetes mellitus without complications (principal); R39.9 Unspecified symptoms and signs involving the genitourinary system; I10 Essential (primary) hypertension; E78.5 Hyperlipidemia, unspecified
CPT/HCPCS: 80053; 80061; 81001; 82043; 82570; 83036; 84156; 87086

== ENCOUNTER 2024-09-21 09:16 | Outpatient (CLI) | payer MEDICARE, SELFPAY ==
--- NOTE | 2024-09-21 09:19 | XR_ITS ---
FINAL REPORT TECHNIQUE: Bone densitometry calculations of the lumbar spine and left hip were obtained. CLINICAL HISTORY: osteoporenia COMPARISON: 05/08/2022 FINDINGS: Using L1-4, the bone mineral density of the spine is 1.177 g/cm2, corresponding to T-score of 1.2. Using the left hip, the bone mineral density of the femoral neck is 0.534 g/cm2, corresponding to a T-score of -2.8. Using the right hip, the bone mineral density of the femoral neck is 0.588 g/cm?, which corresponds to a T-score of -2.4. NOTE: T-score: Standard deviation compared with peak bone mass of young adult mean. *Following the recommendations of the International Society of Bone Densitometry, classification of hip BMD is based on the lower of two T-scores; total hip or femoral neck. IMPRESSION: Osteoporosis: Lowest T-score is at or below -2.5 in the left hip. This patient's T-score meets the World Health Organization criteria for osteoporosis. Reviewed, Interpreted and Dictated by Bernardino Fernandez MD Transcribed by Altagracia Guzman Authenticated and [facility]
== END 2024-09-21 23:59 | disposition home or self-care (01) ==
LOC: RAD 09:18
PROVIDERS: PCP Nurse Practitioner Family; Visit Provider Nurse Practitioner Family
DX: M81.0 Age-related osteoporosis without current pathological fracture (principal); M85.88 Other specified disorders of bone density and structure, other site
CPT/HCPCS: 77080

== ENCOUNTER 2024-11-24 10:16 | Outpatient (CLI) | payer MEDICARE, SELFPAY ==
[2024-11-24] MEDS: DENOSUMAB 60 MG/ML SYRINGE SUBCUT (10:25)
[2024-11-24 10:42] VITALS: BP 145/82; PULSE 81; RESP 18; O2SAT 98
== END 2024-11-24 10:42 | disposition home or self-care (01) ==
LOC: INF 10:17
PROVIDERS: PCP Nurse Practitioner Family; Visit Provider Nurse Practitioner Family
DX: M81.0 Age-related osteoporosis without current pathological fracture (principal)
CPT/HCPCS: 96372; J0897

== ENCOUNTER 2024-12-29 10:14 | Outpatient (CLI) | payer MEDICARE, SELFPAY ==
--- NOTE | 2024-12-29 10:17 | XR_ITS ---
FINAL REPORT CLINICAL HISTORY: right posterior ankle pain and swelling FINDINGS: RIGHT ANKLE 3 views of the right ankle were obtained. There is no acute fracture or dislocation. There are post-ORIF changes of the medial malleolus. Mild degenerative changes are seen. the mortise is intact. Visualized joint spaces are normally aligned. Soft tissues are unremarkable. IMPRESSION: No acute bony abnormality. Reviewed, Interpreted and Dictated by Bernardino Fernandez MD Transcribed by Radha Jeffrey Authenticated and [facility]
--- NOTE | 2024-12-29 10:17 | XR_ITS ---
FINAL REPORT CLINICAL HISTORY: right posterior ankle pain and swelling FINDINGS: RIGHT TIBIA AND FIBULA There is no acute fracture or dislocation. There are postoperative changes of the medial malleolus. The joint spaces are intact. There is no soft tissue abnormality. IMPRESSION: No acute fracture Reviewed, Interpreted and Dictated by Bernardino Fernandez MD Transcribed by Radha Jeffrey Authenticated and . [facility]
== END 2024-12-29 23:59 | disposition home or self-care (01) ==
LOC: RAD 10:15
PROVIDERS: PCP Nurse Practitioner Family; Visit Provider Nurse Practitioner Family
DX: M25.571 Pain in right ankle and joints of right foot (principal); M25.471 Effusion, right ankle
CPT/HCPCS: 73590; 73610

== ENCOUNTER 2025-01-04 19:38 | Emergency (ER) | payer MEDICARE, SELFPAY ==
[2025-01-04] VITALS (7 sets, daily range): BP systolic 150–188; BP diastolic 72–84; PULSE 61–86; RESP 15–18; TEMP 36.5–37.2; O2SAT 95–100; BMI 29.2
--- NOTE | 2025-01-04 19:53 | ECG_ITS ---
APPROVED REPORT Exam: Resting ECG HR:77 bpm ECG Measurements Heart Rate 77 AXES AZ 139 P 7 QRSd 98 QRS 10 QT 391 T -3 QTc 422 Conclusion SINUS RHYTHM NONSPECIFIC T-WAVE ABNORMALITY BORDERLINE ECG no STEMI Electronically signed by : JENNIFER VIVEROS, 01/06/2025 20:49:56
[2025-01-04 20:10] LABS: Hematocrit 35.7 % (37.0-47.0); Hemoglobin 11.9 g/dL (12.2-16.2); Immature Granulocytes % 0.3 %; Mean Corpuscular HGB Conc 33.3 g/dL (31.8-35.4); Mean Corpuscular Hemoglobin 27.7 pg (27.0-31.2); Mean Corpuscular Volume 83.2 fl (81-99); Nucleated Red Blood Cells % 0 %; Platelet Count 209 K/mm3 (142-424); Red Blood Count 4.29 M/mm3 (4.20-5.40); Red Cell Distribution Width-SD 39.7 fL; White Blood Count 8.7 K/mm3 (4.8-10.8)
[2025-01-04 20:12] LABS: Albumin Level 4.5 g/dl (3.5-5.0); Chloride 95 mmol/L (98-107); Sodium 131 mmol/L (136-145)
[2025-01-04 20:13] LABS: Potassium 4.5 mmoL/L (3.5-5.1)
[2025-01-04 20:15] LABS: Alanine Aminotransferase 34 U/L (12-78); Anion Gap 16.5 mEq/L (5-15); Aspartate Amino Transferase 45 U/L (14-36); Blood Urea Nitrogen 19 mg/dl (7-17); Carbon Dioxide 24 mmol/L (22.0-30.0); Creatinine Clearance Estimated 66 mL/min (50-200); Creatinine,Serum 0.80 mg/dl (0.52-1.04); Estimated Glomerular Filt Rate 72 ml/min (>60); GFR (African American) 88 ML/MIN (>60)
[2025-01-04 20:16] LABS: Albumin/Globulin Ratio 1.7 (1.1-1.8); Alkaline Phosphatase 43 U/L (38-126); Bilirubin,Total 0.6 mg/dl (0.2-1.3); Calcium 9.2 mg/dl (8.4-10.2); Globulin 2.6 g/dL (1.3-3.2); Glucose 160 mg/dl (74-100); Total Protein,Serum 7.1 g/dl (6.3-8.2)
--- NOTE | 2025-01-04 20:28 | CT_ITS ---
PROCEDURE INFORMATION: Exam: CT Head Without Contrast Exam date and time: 01/04/2025 8:58 PM Age: 64 years old Clinical indication: Pain; Headache; Additional info: Headache and high BP TECHNIQUE: Imaging protocol: Computed tomography of the head without contrast. Radiation optimization: All CT scans at this facility use at least one of these dose optimization techniques: automated exposure control; mA and/or kV adjustment per patient size (includes targeted exams where dose is matched to clinical indication); or iterative reconstruction. COMPARISON: CT SINUS WO CON 08/13/2023 2:21 PM FINDINGS: Brain: Global cerebral volume loss. No acute intracranial hemorrhage. No mass effect or midline shift. No extra-axial fluid collection. Normal skinner-white matter differentiation. Cerebral ventricles: No hydrocephalus. Paranasal sinuses: Mucosal thickening with air-fluid levels in the left maxillary sinus compatible with sinusitis. Mastoid air cells: Visualized mastoid air cells are clear. Bones: No evidence of acute calvarial or skull base fracture. Soft tissues: Unremarkable. IMPRESSION: 1. No evidence of acute intracranial abnormality. 2. Mucosal thickening with air-fluid levels in the left maxillary sinus compatible with sinusitis. 3. Global cerebral volume loss.
[2025-01-04 20:34] LABS: Troponin I < 0.01 ng/ml (0.00-0.034)
[2025-01-04] MEDS: KETOROLAC 30MG/ML VIAL 15 MG IV (21:08)
[2025-01-04] MEDS: 0.9 % SODIUM CHLORIDE 1000ML 500 ML 999 ML IV (21:08)
--- NOTE | 2025-01-04 21:30 | HMH.EDGENADL ---
Discharge Plan Disposition Patient Disposition: Home, Self-Care Condition: Good Prescriptions Prescriptions: No Action ascorbate calcium (vitamin C) 500 mg tablet 500 mg PO DAILY lisinopril 40 mg tablet 40 mg PO DAILY fluticasone propionate [Flonase Allergy Relief] 50 mcg/actuation spray,suspension 1 spray intranasal BID Rx Instructions: administer into each nostril omega-3 fatty acids-fish oil [Fish Oil] 360-1,200 mg capsule 1 cap PO DAILY Centrum Silver Women 8 mg iron-400 mcg-50 mcg tablet 1 tab PO DAILY cholecalciferol (vitamin D3) 25 mcg (1,000 unit) capsule 25 mcg PO DAILY hydrochlorothiazide 25 mg tablet 25 mg PO DAILY levocetirizine [Xyzal] 5 mg tablet 5 mg PO HS Qty: 90 3RF insulin glargine [Lantus Solostar U-100 Insulin] 100 unit/mL (3 mL) insulin pen 35 unit SQ HS Qty: 30 11RF hydralazine 10 mg tablet 20 mg PO QID Qty: 360 3RF glimepiride 4 mg tablet 4 mg PO BIDWMEAL Qty: 180 3RF omeprazole 40 mg capsule,delayed release(DR/EC) 40 mg PO DAILY 90 Days Qty: 90 1RF pioglitazone 15 mg tablet 15 mg PO DAILY Qty: 90 3RF metformin 1,000 mg tablet See Rx Instructions .ROUTE .COMPLEX Qty: 180 3RF Dose Instruction: Take 1 tablet by mouth twice daily Rx Instructions: Take 1 tablet by mouth twice daily Prolia 60 mg/mL syringe 60 mg SQ [id number] Qty: 1 1RF rosuvastatin 40 mg tablet See Rx Instructions .ROUTE .COMPLEX Qty: 30 11RF Dose Instruction: Take 1 tablet by mouth once daily Rx Instructions: Take 1 tablet by mouth once daily aspirin 81 mg Tablet 81 mg PO DAILY (DME) pen needle, diabetic 31 gauge x 1/4 needle See Rx Instructions .ROUTE .MEDSUPPLY Qty: 100 0RF Rx Instructions: As directed Referrals Follow up/Referrals: Fatou Abreu APRN [Primary Care Provider, Family Practice] - See instructions Activity Restrictions/Add. Instructions Additional Instructions/Restrictions: You were evaluated in the emergency department today. Please check your blood pressure 3 times a day. Keep note that checking your blood pressure repeatedly and becoming anxious about it can make it continue to elevate. Provide your primary care provider with a log of blood pressure so they can make adjustments as appropriate. Return to the emergency department for new or worsening symptoms. Clinical Impressions Clinical Impression: Headache, High blood pressure Instructions Patient Instructions: DI for High Blood Pressure, DI for Headache Print Language Print Language: Sinhala Discharge ED Provider: Roselyn Macedo General Adult HPI General Chief complaint: Recheck/Abnormal Lab/Rx Stated complaint: HBP,SOA Time Seen by Provider: 01/04/25 19:48 Mode of Arrival: Family Vehicle Source of Information: Patient Description of Symptoms (Recalled from ER Triage Doc. by RN): Hypertension Pt reports that her BP Pt presents to the ED with c/o of hypertension X 8 hrs. Pt reports that her blood pressure started going up around 1300 with the highest reading being 224/86. Pt reports that she is on Lisinopril and hydralazine and took 20mg of hydralazine at 1830. Pt states I have pressure in my head and started having trouble taking in deep breaths and decided to come on here . History of Present Illness HPI narrative: This patient is a 64-year-old female with a history of hypertension, hyperlipidemia, type 2 diabetes presenting to the emergency department for evaluation with concern for high blood pressure readings at home and just feeling not right. Patient states that she noted earlier that she felt off, prompting her to take her blood sugar which was normal at 114. Given this, she decided to check her blood pressure which she noted was very high. She states that her highest blood pressure was 224/86 around 1 PM. She states she took it very frequently after that tried to see if it would go down, but it Fluctuated [id number] and did not really seem to go down. She also notes that she felt a pressure in her head. She states that she took her home medications but it still continued to read high. She notes that she started feeling like she was having trouble taking a deep breath in, prompting evaluation here. She is not feeling that feeling anymore, only having a mild pressure in her head at this time. She denies any known history of headaches. She denies any history of prior headaches. She also denies any vision changes, numbness, tingling, unilateral weakness, chest pain, abdominal pain, or other concerns. She does note her primary care provider recently increased her blood pressure medications about a week ago because they were having difficulty controlling it. Related Data Home Medications ?Medication ?Instructions ?Recorded ?Confirmed cholecalciferol (vitamin D3) 25 25 mcg PO DAILY 02/20/23 12/30/24 mcg (1,000 unit) capsule [id number] 8 mg-folic 400 1 tab PO DAILY 02/20/23 12/30/24 mcg-K 50 mcg-lutein 300 mcg tablet (Centrum Silver Women) omega-3 fatty acids-fish oil 360 1 cap PO DAILY 02/20/23 12/30/24 mg-1,200 mg capsule (Fish Oil) ascorbate calcium (vitamin C) 500 500 mg PO DAILY 04/21/23 12/30/24 mg tablet aspirin 81 mg tablet 81 mg PO DAILY 11/15/23 12/30/24 lisinopril 40 mg tablet 40 mg PO DAILY 08/12/24 12/30/24 hydrochlorothiazide 25 mg tablet 25 mg PO DAILY 09/06/24 12/30/24 fluticasone propionate 50 1 spray intranasal BID 12/29/24 12/30/24 mcg/actuation nasal spray,suspension (Flonase Allergy Relief) Previous Rx's ?Medication ?Instructions ?Recorded pen needle, diabetic 31 gauge x #100 ea 11/16/2307/10 glimepiride 4 mg tablet 4 mg PO BIDWMEAL #180 tabs 01/21/24 omeprazole 40 mg capsule,delayed 40 mg PO DAILY 90 days #90 caps 05/06/24 release pioglitazone 15 mg tablet 15 mg PO DAILY #90 tabs 09/07/24 denosumab 60 mg/mL subcutaneous 60 mg SQ [id number] #1 mL 09/22/24 syringe (Prolia) metformin 1,000 mg tablet See Rx Instructions .Route 09/22/24 .COMPLEX #180 tabs insulin glargine 100 unit/mL (3 35 unit (0.35 mL) SQ HS #30 mL 11/24/24 mL) subcutaneous pen (Lantus Solostar U-100 Insulin) levocetirizine 5 mg tablet (Xyzal) 5 mg PO HS #90 tabs 11/24/24 rosuvastatin 40 mg tablet See Rx Instructions .Route 12/02/24 .COMPLEX #30 tabs hydralazine 10 mg tablet 20 mg (2 x 10 mg) PO QID #360 tabs 12/29/24 Allergies Allergy/AdvReac Type Severity Reaction Status Date / Time methylprednisolone Allergy Intermediate shortness Verified 01/04/25 20:01 of air codeine Allergy Weakness Verified 01/04/25 20:01 prednisone AdvReac Intermediate Unknown Verified 01/04/25 20:01 allergy reaction PFSH [facility] Disclaimer: The information contained in this section may have been updated after the patient was seen, as this information can be updated by other users. Medical History Osteopenia Hypertension, uncontrolled Belching Yeast infection involving the vagina and surrounding area Abdominal pain Diaphoresis Dyspnea Encounter for screening examination for sexually transmitted disease Left leg pain Ear congestion Right upper quadrant abdominal pain Diabetes mellitus, type 2 Sinusitis Retraction pocket of tympanic membrane Deviated nasal septum Chronic sinusitis Acute hyperglycemia Allergic sinusitis Dysuria Vaginal atrophy Vaginal Discharge delivery delivered Hyperlipemia History of hypertension Surgical History Status post ORIF of fracture of ankle H/O tubal ligation H/O total hysterectomy Family History Father Alcoholism Cancer Mother Cancer Hyperlipidemia Hypertension Grandmother Diabetes Social History Smoking Status: Never smoker alcohol intake: never substance use type: denies use current occupational status: retired Travel in the last 8 weeks?: None marital status: number of children: 2 Have you lived/traveled outside [place] in past 30 days?: No Contact w/someone who lives/traveled outside [place] past 30 days?: No Exposure to someone with infectious disease in past 14 days?: No Do you have a fever (greater than 100.4 F or 38 C)?: No Have you tested positive for COVID-19?: No Exposed to someone with COVID-19 in past 14 days?: No Do you have a sore throat?: No Do you have a cough?: No Do you have any weakness?: No Do you have any diarrhea?: No Are you experiencing any unusual bleeding?: No Do you have any muscle aches/pain?: No Do you have any abdominal pain?: No Are you experiencing loss of taste or smell?: No Other Medical History Have you received the Flu Vaccine for this season: No Have you received the Pneumonia Vaccine: No ROS Obtained: Yes All systems reviewed & no additional complaints except as documented Physical Exam General General appearance: alert, in no apparent distress and anxious Head Head exam: atraumatic and normocephalic Eye Eye exam: Present normal appearance, PERRL and EOMI ENT ENT exam: Present normal exam, normal oropharynx, mucous membranes moist and normal external ear exam Neck Neck exam: Present normal inspection, full ROM and trachea midline; Absent tenderness Chest Chest inspection: Present normal inspection and symmetric chest wall rise; Absent tenderness Respiratory Respiratory exam: Present normal lung sounds bilaterally; Absent respiratory distress, wheezes, stridor or accessory muscle use Cardiovascular Cardiovascular exam: Present regular rate and normal rhythm Abdominal Exam Abdominal exam: Present soft; Absent distention, tenderness or guarding Extremities Exam Extremities exam: Present normal inspection, full ROM and normal capillary refill; Absent tenderness or edema Back Exam Back exam: Present normal inspection and full ROM; Absent tenderness Neurological Exam Neurological exam: Present alert, oriented X3, CN II-XII intact and normal gait; Absent motor sensory deficit Psychiatric Psychiatric exam: Present normal affect, normal mood and anxious Skin Skin exam: Present warm and dry Medical Decision Making Medical Records Medical records reviewed: Yes I reviewed the patient's medical records. Screening: Per USPSTF and CDC recommendations, given the prevalence of disease in our region, it is our hospital?s policy to screen for HIV and viral Hepatitis for all patients aged 18 and over and those with ongoing risk factors. Zach Inquiry Pt receiving controlled substance: No Vital Signs: 01/04/25 19:53 01/04/25 20:00 01/04/25 21:11 Temperature 97.7 F Temperature Source Temporal Artery Scan Pulse Rate 74 68 Pulse Rate [Left] 86 Respiratory Rate 17 18 15 Blood Pressure 150/74 H 162/76 H Blood Pressure [Right Arm] 188/84 H Blood Pressure Mean 99 Blood Pressure Mean [Right Arm] 118 Blood Pressure Source [Right Arm] Automatic Cuff Blood Pressure Position Blood Pressure Position [Right Arm] Sitting 02 Sat by Pulse Oximetry 96 95 98 Oxygen Delivery Method Room Air 01/04/25 21:30 01/04/25 22:01 01/04/25 22:30 Temperature Temperature Source Pulse Rate 62 68 61 Pulse Rate [Left] Respiratory Rate 17 15 15 Blood Pressure 161/80 H 182/72 H 178/84 H Blood Pressure [Right Arm] Blood Pressure Mean 108 102 Blood Pressure Mean [Right Arm] Blood Pressure Source [Right Arm] Blood Pressure Position Blood Pressure Position [Right Arm] 02 Sat by Pulse Oximetry 97 97 100 Oxygen Delivery Method 01/04/25 22:55 Temperature 98.9 F Temperature Source Oral Pulse Rate 63 Pulse Rate [Left] Respiratory Rate 16 Blood Pressure 178/84 H Blood Pressure [Right Arm] Blood Pressure Mean Blood Pressure Mean [Right Arm] Blood Pressure Source [Right Arm] Blood Pressure Position Sitting Blood Pressure Position [Right Arm] 02 Sat by Pulse Oximetry Oxygen Delivery Method Room Air Lab Data Lab results reviewed: Yes I reviewed the patient's lab results. Lab Results 01/04/25 19:50: WBC 8.7, RBC 4.29, Hgb 11.9 L, Hct 35.7 L, MCV 83.2, MCH 27.7, MCHC 33.3, RDW 13.1, Plt Count 209, MPV 11.3 H, Neut % (Auto) 50.3, Lymph % (Auto) 42.0, Castro % (Auto) 5.8, Eos % (Auto) 1.0, Baso % (Auto) 0.6, Neut # (Auto) 4.4, Lymph # (Auto) 3.6, Castro # (Auto) 0.5, Eos # (Auto) 0.1, Baso # (Auto) 0.1, Sodium 131 L, Potassium 4.5, Chloride 95 L, Carbon Dioxide 24, Anion Gap 16.5 H, BUN 19 H, Creatinine 0.80, Estimated Creat Clear 66, Estimated GFR 72, Est GFR ( Amer) 88, Glucose 160 H, Calcium 9.2, Total Bilirubin 0.6, AST 45 H, ALT 34, Alkaline Phosphatase 43, Troponin I < 0.01, Total Protein 7.1, Albumin 4.5, Globulin 2.6, Albumin/Globulin Ratio 1.7 01/04/25 19:50 01/04/25 19:50 Orders (Tests/Meds): ED MEDICATIONS Discontinued Medications Generic Name Dose Route Start Last Admin Trade Name Freq PRN Reason Stop Dose Admin Sodium Chloride 500 mls @ 999 mls/hr 01/04/25 21:00 01/04/25 21:08 Sod Chlor 0.9% 1000ml Bag IV 01/04/25 21:30 999 mls/hr .Q31M ONE Administration Ketorolac Tromethamine 15 mg 01/04/25 21:00 01/04/25 21:08 Ketorolac 30mg/Ml Vial IV 01/04/25 21:01 15 mg ONCE ONE Administration ORDERS Category Date Time Status CT head/brain wo con Stat Cat Scan 01/04/25 20:28 Completed Complete Blood Count Auto Diff Stat Lab 01/04/25 19:50 Completed Comprehensive Metabolic Panel Stat Lab 01/04/25 19:50 Completed Trop I [Troponin I] Stat Lab 01/04/25 19:50 Completed ECG Data Tracing #1: I reviewed this ECG and interpreted as documented below: Normal sinus rhythm with a ventricular rate of [address] changes concerning for STEMI. Normal intervals ECG initial impression date: 01/04/25 ECG initial impression time: 19:59 Medical Decision Narrative: In summary, this patient is a 64-year-old female presenting to the Emergency Department for evaluation of blood pressure readings at home, head pressure, and a brief episode of feeling like she cannot get a good breath in. Differential diagnoses considered include but are not limited to anxiety, panic attack, hypertensive urgency, hypertensive emergency, ACS, intracranial mass. Ruling out the most morbid conditions drove assessment. It should be noted patient's history includes hypertension, hyperlipidemia, type 2 diabetes which may or may not be at goal therapy. Her high blood pressure is definitely not at goal therapy. This complicates all aspects of care by increasing patient's risk for morbidity. I reviewed patient's past medical records and noted her PCP evaluations for maintenance of health medication adjustments. On exam, the patient is sitting upright in no acute distress. She is slightly anxious appearing, and gets worked up when talking about her blood pressure. She denies any known history of anxiety. She currently is not experiencing any chest pain or shortness of breath. O2 saturation is normal, heart rate is normal. Her blood pressure on my assessment was 150s over 70s. Cardiopulmonary exam is reassuring. She is neurologically intact. Workup included CBC, CMP, troponin, CT head without contrast, and EKG. She was given IV Toradol for her headache. I independently interpreted the scan prior to the radiologist read and noted no intracranial hemorrhage or mass. Please see their read for final interpretation. Labs were obtained that demonstrated reassuring CBC with no significant leukocytosis or anemia, reassuring chemistry with normal kidney function. She does have mild hyponatremia. On reassessment, patient is feeling great with exception of stating that she feels anxious because she needs to get home to her dogs. She is neurologically intact with blood pressure 170s/80s on subsequent assessments. She already has close PCP follow-up arranged for further evaluation and management of her blood pressure. I advised that she keep a log of her blood pressures at home only checking 3 times daily as opposed to repeatedly and gave her strict return precautions. Critical Care Critical Care Time Critical Care Time: No
== END 2025-01-04 22:56 | disposition home or self-care (01) ==
PROVIDERS: Emergency Provider Emergency Medicine; PCP Nurse Practitioner Family
DX: R51.9 Headache, unspecified (principal); I10 Essential (primary) hypertension; R06.00 Dyspnea, unspecified; E87.1 Hypo-osmolality and hyponatremia; E11.9 Type 2 diabetes mellitus without complications; E78.5 Hyperlipidemia, unspecified
CPT/HCPCS: 70450; 80053; 84484; 85025; 93005; 96374; 99284; J1885; J7030

== ENCOUNTER 2025-01-24 09:55 | Outpatient (CLI) | payer MEDICARE, SELFPAY ==
--- OUTSIDE RECORDS SUMMARY | 2025-01-24 09:58 | XMS_ITS | Encounter Summary ---
[facility] Address [address] [place] [id number] Care Team Providers Care Skeet Operator Name Role Phone Sara Alston DO Primary Care Provider [phone] Reason for Visit * Reason Comments Med Refill Encounter Details Date Type Department Care Team (Late st Contact Info) Description 04/23/2022 Refill [facility] [address] [facility] [place] [address] Sara Alston DO [address] [place] [address] Type 2 diabetes mellitus without complication, without long-term current use of insulin Social History Tobacco Use Types Packs/Day Years Used Date Smoking Tobacco: Never Smokeless Tobacco: Never Alcohol Use Standard Drinks/Week Comments Yes 0 (1 standard drink = 0.6 oz pur e alcohol) Maybe wine once a month PHQ-2 Answer Date Recorded Retired PHQ-9: Brief Depression Severity Measure Score 0 10/11/2021 Comments Unknown Sex and Gender Information Value Date Recorded Sex Assigned at Not on file Legal Sex Female 3:18 PM EST Gender Identity Not on file Sexual Orientation Not on file documented as of this encounter Miscellaneous Notes * Telephone Encounter - Amarilys Elizabeth RegSched Rep - 04/24/2022 3:27 PM EDT Lvm to sweta f/u documented in this encounter Plan of Treatment Not on file documented as of this encounter Visit Diagnoses Diagnosis Type 2 diabetes mellitus without complication, without long-term current use of insulin documented in this encounter Care Teams Skeet Operator Relationship Specialty Start Date End Date Sara Alston DO [address] [place] [address] PCP - General Family Medicine 06/12/20 05/12/22 documented as of this encounter
--- OUTSIDE RECORDS SUMMARY | 2025-01-24 09:58 | XMS_ITS | Clinical Summary ---
Author Organization [facility] Address [address] [place] [address] Care Team Providers Care Associate Store Manager Name Role Phone Unavailable Primary Care Provider Unavailabl e Allergies No known active allergies Medications glucose monitor monitoring kitIndications:Type 2 diabetes mellitus without complication, without long-term current use of insulin Check blood sugar once daily and prn 1 each 1 Active Lancets miscIndications:Typ e 2 diabetes mellitus without complication, without long-term current use of insulin Check blood sugar once daily 100 each 3 1 Active glucose blood test stripIndications:Ty pe 2 diabetes mellitus without complication, without long-term current use of insulin Check blood sugar once daily 100 each 3 1 Active metFORMIN (GLUCOPHAGE) 1000 MG tabletIndications:T ype 2 diabetes mellitus without complication, without long-term current use of insulin Take 1 tablet by mouth 2 (Two) Times a Day With Meals. 180 tablet 1 2 Active omeprazole (priLOSEC) 40 MG capsuleIndications: RUQ pain,Indigestion Take 1 capsule by mouth once daily 90 capsule 1 2 Active ASPIRIN 81 PO Take by mouth. Active EQ Allergy Relief 10 MG tabletIndications:A llergic rhinitis, unspecified seasonality, unspecified trigger Take 1 tablet by mouth once daily 90 tablet 2 Active glipizide (GLUCOTROL) 10 MG tabletIndications:T ype 2 diabetes mellitus without complication, without long-term current use of insulin Take 1 tablet by mouth 2 (Two) Times a Day Before Meals. 180 tablet 1 2 Active rosuvastatin (CRESTOR) 40 MG tablet Take 1 tablet by mouth Daily. 90 tablet 3 2 Active lisinopril-hydrochl orothiazide (PRINZIDE,ZESTORETI C) 20-25 MG per tabletIndications:E ssential hypertension Take 1 tablet by mouth once daily 90 tablet 2 Active meloxicam (MOBIC) 15 MG tabletIndications:P rimary osteoarthritis involving multiple joints Take 1 tablet by mouth once daily 90 tablet 2 Active Active Problems Problem Noted Date Diagnosed Date Type 2 diabetes mellitus wit hout complication, without long-term current use of insulin 07/31/2021 High cholesterol 07/31/2021 Essential hypertension 07/31/2021 Immunizations Immunization Administration Dates Next Due MMR 08/22/1995 Td (TDVAX) 08/22/1995 Tdap 01/02/2013 Family History Medical History Relation Name Comments Cancer Brother Cancer Father Cancer Mother Relation Name Status Comments Brother Lung CA Father Lung and Liver CA Mother Lung CA Social History Tobacco Use Types Packs/Day Years Used Date Smoking Tobacco: Never Smokeless Tobacco: Never Alcohol Use Standard Drinks/Week Comments Yes 0 (1 standard drink = 0.6 oz pur e alcohol) Maybe wine once a month PHQ-2 Answer Date Recorded Retired PHQ-9: Brief Depression Severity Measure Score 0 10/11/2021 Abuse Screen Answer Date Recorded Unsafe at Home or Work/School Not on file Feels Threatened by Someone? Not on file 06/2023 Does Anyone Keep You from Co ntacting Others or Doint Things Outside the Home? Not on file 04/17/2023 Physical Sign of Abuse Present Not on file 1 Housing Stability Answer Date Recorded Current Living Arrangements Not on file 04/06 Potentially Unsafe Housing Conditions Not on wan e 04/17/2023 Family and Community Support Answer Babak e Recorded Help with Day-to-Day Activities Not on file 04/17/2023 Lonely or Isolated Not on file 04/17/2023 Employment Answer Date Recorded Do you want help finding or keeping work or a ayaz b? Not on file 04/17/2023 Disabilities Answer Date Recorded Concentrating, Remembering, or Making Decisions Difficulty Not on file 04/17/2023 Doing Errands Independently Difficulty Not on fi le 04/17/2023 Education Answer Date Recorded Help with school or training? Not on file Preferred Language Not on file 04/17/2023 Comments Unknown Sex and Gender Information Value Date Recorded Sex Assigned at Not on file Legal Sex Female 3:18 PM EST Gender Identity Not on file Sexual Orientation Not on file Last Filed Vital Signs Vital Sign Reading Time Taken Comments Blood Pressure 122/74 02/18/2022 8:22 AM EDT Pulse 92 02/18/2022 8:22 AM EDT Temperature 37 C (98.6 F) 02/18/2022 8:22 AM EDT Respiratory Rate 14 02/18/2022 8:22 AM EDT Oxygen Saturation 97% 02/18/2022 8:22 AM EDT Inhaled Oxygen Concentration - - Weight 62.6 kg (138 lb) 02/18/2022 8:22 AM EDT Height 157.5 cm (5' 2.01 ) 02/18/2022 8:22 AM ED T Body Mass Index 25.23 02/18/2022 8:22 AM EDT Plan of Treatment Health Maintenance Due Date Last Done Comments Annual Gynecologic Pelvic an d Breast Exam 1961 DIABETIC FOOT EXAM 1971 URINE MICROALBUMIN-CREATININ E RATIO (uACR) 1971 Pneumococcal Vaccine 50+ (1 of 2 - PCV) 1980 MAMMOGRAM 2001 COLON CANCER SCREENING 5 YEA R SIGMOIDOSCOPY [address] COLONOGRAPHY 2006 FECAL OCCULT BLOOD TEST 2006 FIT Testing (1 year) 2006 ZOSTER VACCINE (1 of 2) 2011 ANNUAL WELLNESS VISIT 06/12/2020 DIABETIC EYE EXAM 10/11/2022 10/11/2021 TDAP/TD VACCINES (3 - Td or Tdap) 01/02/2023 013, 08/22/1995 HEMOGLOBIN A1C 05/25/2023 11/22/2022, 022 , 05/14/2022, Additional history exists LIPID PANEL 11/23/2023 11/22/2022, 11/0 02/2022, 02/18/2022, Additional history exists COVID-19 Vaccine (3 - 2023-2 5 season) 2024 12/14/2020, 11/23/2020 COLOGUARD 11/02/2024 11/02/2021, 10/06, 10/11/2021 COLORECTAL CANCER SCREENING 11/02/2024 INFLUENZA VACCINE 04/06/2025 HEPATITIS C SCREENING Completed 12/13/2020 Procedures Procedure Name Priority Date/Time Associated Diagnosis Comments HEMOGLOBIN A1C Routine 02/18/2022 12:00 AM EDT High cholesterol Type 2 diabetes mellitus without complication, without long-term current use of insulin LIPID PANEL W/ CHOL/HDL RATIO Routine 02/18/2022 12:00 AM EDT High cholesterol Type 2 diabetes mellitus without complication, without long-term current use of insulin SCANNED - COLOGUARD 11/02/2021 SCANNED - EYE EXAM 10/11/2021 HEPATITIS C ANTIBODY Routine 12/13/2020 8:33 AM EDT Encounter for hepatitis C screening test for low risk patient from Last 3 Months or Most Recently Relevant to Health Maintenance Results * (ABNORMAL) Lipid Panel With / Chol / HDL Ratio (02/18/2022 12:00 AM EDT) [facility] Total Cholesterol 208(H) 0 - 200 mg/dL [facility] Comment: Cholesterol Reference Ranges (U.S. Department of Health and Human Services ATP III Classifications) Desirable <200 mg/dL Borderline High 200-239 mg/dL High Risk >240 mg/dL Triglyceride Reference Ranges (U.S. Department of Health and Human Services ATP III Classifications) Normal <150 mg/dL Borderline High 150-199 mg/dL High 200-499 mg/dL Very High >500 mg/dL HDL Reference Ranges (U.S. Department of Health and Human Services ATP III Classifications) Low <40 mg/dl (major risk factor for CHD) High >60 mg/dl ('negative' risk factor for CHD) LDL Reference Ranges (U.S. Department of Health and Human Services ATP III Classifications) Optimal <100 mg/dL Near Optimal 100-129 mg/dL Borderline High 130-159 mg/dL High 160-189 mg/dL Very High >189 mg/dL Triglycerides 131 0 - 150 mg/dL [facility] HDL Cholesterol 55 40 - 60 mg/dL [facility] VLDL Cholesterol Nain 23 5 - 40 mg/dL [facility] LDL Chol Calc (NIH) 130(H) 0 - 100 mg/dL [facility] Chol/HDL Ratio 3.78 [facility] Blood 02/18/2022 02/18/2022 Comment:Blood Release to [facility] (AMB[facility]ATORY) - 03/01/2022 2:10 PM EDT Performed at: [address] [place] [id number] Junior Accountant Bookkeeper: Gianni Villa MD, Phone: [phone] Sara Linnea YUPIQ LAB BLOOD ORDERABLES Final Result Performing Organization Address [facility] Co de Phone [facility] [address] [place] [address], [facility] [address] [place] [address], * (ABNORMAL) Hemoglobin A1c (02/18/2022 12:00 AM EDT) [facility] Hemoglobin A1C 7.50(H) 4.80 - 5.60 % [facility] Comment: Hemoglobin A1C Ranges: Increased Risk for Diabetes 5.7% to 6.4% Diabetes >= 6.5% Diabetic Goal < 7.0% Blood 02/18/2022 02/18/2022 Comment:Blood Release to [facility] (AMB[facility]) - 03/01/2022 2:10 PM EDT Performed at: [address] [place] [address] [address] [place], [place] [id number] Junior Accountant Bookkeeper: Gianni Villa MD, Phone: [phone] Sara Linnea Gamaliel ALICE App LAB BLOOD ORDERABLES Final Result Performing Organization Address [facility] Co de Phone Number [facility] [address] [place] [address], [facility] [address] [place] [address], [place] [phone] * SCANNED - COLOGUARD (11/02/2021) Sara Alston DO LAB BLOOD ORDERABLES Final Result * SCANNED - EYE EXAM (10/11/2021) Anatomical Region Laterality Modality Other Sara Alston DO CHART REVIEW TABS Final Result * Hepatitis C Antibody (12/13/2020 8:33 AM EDT) Hep C Virus Ab <0.1 0.0 - 0.9 s/co ratio [facility] Comment: Negative: < 0.8 Indeterminate: 0.8 - 0.9 Positive: > 0.9 The CDC recommends that a positive HCV antibody result be followed up with a HCV Nucleic Acid Amplification test (480775). Blood 12/13/2020 8:33 AM EDT 12/13/2020 Narrative [facility] [employer] [facility] (AMBULATORY) - 12/14/2020 12:09 PM EDT Performed at: [address] [id number] Junior Accountant Bookkeeper: Harsha Becker PhD, Phone: [phone] Patient Fasting: Y Saracarly Alston DO LAB BLOOD ORDERABLES Final Result [facility] [employer] [facility] (AMBULATORY) [address] [place] [address], [place] [phone] [facility] [address] [place] [address], [place] [phone] from Last 3 Months or Most Recently Relevant to Health Maintenance Insurance MEDICARE A & B
--- NOTE | 2025-01-24 10:00 | US_ITS ---
FINAL REPORT TECHNIQUE: Ultrasound images of the kidneys and bladder were obtained. CLINICAL HISTORY: I25.10 - Atherosclerotic heart disease of [place] coronary... FINDINGS: The right kidney measures 9 cm in length, borderline small. It is normal in echogenicity. There is no hydronephrosis. The left kidney measures 10 cm in length. It is normal in echogenicity. There is no hydronephrosis. The urinary bladder is unremarkable. IMPRESSION: Borderline small right kidney, no hydronephrosis. Reviewed, Interpreted and Dictated by Bernardino Fernandez MD Transcribed by Radha Jeffrey Authenticated and . [facility]
--- NOTE | 2025-01-24 10:30 | CA_ITS ---
APPROVED REPORT EXAM: Comprehensive 2D, Doppler, and color-flow Echocardiogram Fine Dining Server: Tennille Arroyo CRT Ht: 5 ft 2 in Wt: 158lbs BSA: 1.73 BP: 184/74 mmHg Indications: Diabetes, CAD, Hypertension/HDD 2D Dimensions LA Volume 51.40 mL LA Volume Index 29.71 mL/m2 (M/F) 16-34 M-Mode Dimensions LA Diam 3.72 cm (1.9-4.0) TAPSE 1.76 (<1.7) LV Diastology E Decel Time 83 (160-240 msec) E/A Ratio 1.3 MED A' 8.50 cm/s LAT A' 9.00 cm/s Aortic Valve ADÁN Index 1.32 cm2/m2 AoV Peak Urban. 193.0 (50-130 cm/s) AO Peak GR. 15.00 mmHg AO Mean GR. 7.60 (<5 mmHg) AO VTI 39.0 (18-25 cm) ADÁN (VTI) 2.34 (2.5-4.5 cm2) Mitral Valve MV E Max Urban. 91.0 (40-130 cm/s) MV A Velocity 69.0 (40-130 cm/s) E/A Ratio 1.32 MV PHT 24.0 ms Pulmonary Valve PV Peak Velocity 109.0 (50-150 cm/s) Tricuspid Valve TR P. Velocity 336.00 cm/s RAP Estimate 10.00 mmHg RVSP 55.10 mmHg Left Ventricle The left ventricle is normal size. The left ventricular systolic function is normal. The left ventricular ejection fraction is within the normal range. There is increased overall thickness. There is normal LV segmental wall motion. The left ventricular diastolic function is normal. LVEF is 55%. Right Ventricle The right ventricle is normal size. The right ventricular systolic function is normal. Atria The left atrium size is normal. The right atrium size is normal. There is no Doppler evidence of interatrial shunt. Aortic Valve The aortic valve is mildly thickened. Trace aortic regurgitation. There is no hemodynamically significant aortic stenosis. Mitral Valve The mitral valve is normal in structure. No evidence of mitral valve stenosis. Trace mitral regurgitation. Tricuspid Valve Tricuspid valve is grossly normal in structure and function. Mild tricuspid regurgitation. RVSP is 20-25 mmHg. Pulmonic Valve The pulmonary valve is normal in structure. Trace pulmonic regurgitation. Great Vessels The aortic root is normal in size. IVC is normal in size and collapses >50% with inspiration. Pericardium There is no pericardial effusion. Other Information Study Quality: Fair Conclusion Normal biventricular systolic function. Mild TR. Electronically signed by : Jadyn Sterling MD 01/26/2025 13:19:04
== END 2025-01-24 23:59 | disposition home or self-care (01) ==
LOC: RAD 09:56
PROVIDERS: PCP Nurse Practitioner Family; Visit Provider Nurse Practitioner Family
DX: I07.1 Rheumatic tricuspid insufficiency (principal); R93.421 Abnormal radiologic findings on diagnostic imaging of right kidney; I25.10 Atherosclerotic heart disease of native coronary artery without angina pectoris; I10 Essential (primary) hypertension; E11.9 Type 2 diabetes mellitus without complications
CPT/HCPCS: 76770; 93306

== ENCOUNTER 2025-02-10 08:17 | Day surgery (SDC) | payer MEDICARE, SELFPAY ==
[2025-02-10] VITALS (18 sets, daily range): BP systolic 88–150; BP diastolic 47–79; PULSE 49–74; RESP 14–20; TEMP 36.7; O2SAT 90–95; BMI 30.2; BMI 29.6
--- NOTE | 2025-02-10 07:45 | IR_ITS ---
APPROVED REPORT Patient Location: Outpatient PROCEDURES Bilateral selective renal angiography INDICATION Abnormal renal duplex, Renal artery stenosis Informed consent was obtained prior to the procedure. COMPLICATIONS None Estimated Blood Loss: Less than 10 mls TECHNIQUE 1% lidocaine used to anesthetize the right femoral groin. The right femoral artery was accessed via the Seldinger technique. A 4 Bahraini sheath was placed in the right femoral artery. The JR4 catheter was used to selectively intubate each renal artery. At the end of the diagnostic angiogram the patient was transferred to the postop holding area in stable condition for sheath removal. ANGIOGRAPHIC RESULTS Right renal artery singular normal Left renal artery singular normal IMPRESSION Normal renal arteries PLAN 1. Medical management Electronically signed by : Bert Blanc MD 02/10/2025 10:04:35
[2025-02-10 08:44] LABS: Hematocrit 39.8 % (37.0-47.0); Hemoglobin 13.3 g/dL (12.2-16.2); Immature Granulocytes % 0.3 %; Mean Corpuscular HGB Conc 33.4 g/dL (31.8-35.4); Mean Corpuscular Hemoglobin 28.4 pg (27.0-31.2); Mean Corpuscular Volume 84.9 fl (81-99); Nucleated Red Blood Cells % 0 %; Platelet Count 236 K/mm3 (142-424); Red Blood Count 4.69 M/mm3 (4.20-5.40); Red Cell Distribution Width-SD 40.6 fL; White Blood Count 8.8 K/mm3 (4.8-10.8)
[2025-02-10 08:50] LABS: Chloride 101 mmol/L (98-107); Potassium 4.2 mmoL/L (3.5-5.1); Sodium 135 mmol/L (136-145)
[2025-02-10 08:53] LABS: Anion Gap 12.2 mEq/L (5-15); Blood Urea Nitrogen 23 mg/dl (7-17); Calcium 10.2 mg/dl (8.4-10.2); Carbon Dioxide 26 mmol/L (22.0-30.0); Creatinine Clearance Estimated 68 mL/min (50-200); Creatinine,Serum 0.80 mg/dl (0.52-1.04); Estimated Glomerular Filt Rate 72 ml/min (>60); GFR (African American) 88 ML/MIN (>60); Glucose 241 mg/dl (74-100)
[2025-02-10] MEDS: HEPARIN 1,000 UNITS/500ML NS (CATH LAB) 3000 UNIT IV (09:44)
[2025-02-10] MEDS: MIDAZOLAM HCL 1MG/ML 5ML VIAL 1 MG IV (09:45)
[2025-02-10] MEDS: FENTANYL 100MCG/2ML VIAL 50 MCG IV (09:45)
[2025-02-10] MEDS: LIDOCAINE 1% 10ML MDV 10 ML IJ (09:45)
[2025-02-10] MEDS: 0.9 % SODIUM CHLORIDE 500 ML 25 ML IV (09:45)
--- NOTE | 2025-02-10 11:19 | PC.NURSE ---
All patient care and documentation provided by Judith KENNEY/Dampproofer was completed under my direct supervision. Ellen Mix RN
--- NOTE | 2025-02-10 11:22 | PC.NURSE ---
Pt arrived to the unit at approx 1110. pt a/o x 4. lungs sounds are clear, bowel sounds are active in all quads. nad noted. right groin access, no s/s of bleeding or hematoma noted.
[2025-02-10] MEDS: IOPAMIDOL-370 (76%);100ML BOTTLE 10 ML IV (14:23)
== END 2025-02-10 14:00 | disposition home or self-care (01) ==
LOC: CATHLAB 08:18
PROVIDERS: PCP Nurse Practitioner Family; Visit Provider Internal Medicine
DX: I70.1 Atherosclerosis of renal artery (principal); I10 Essential (primary) hypertension; I15.0 Renovascular hypertension; I25.10 Atherosclerotic heart disease of native coronary artery without angina pectoris; E11.9 Type 2 diabetes mellitus without complications; E78.5 Hyperlipidemia, unspecified; Z79.899 Other long term (current) drug therapy; Z79.4 Long term (current) use of insulin; Z79.82 Long term (current) use of aspirin; Z79.84 Long term (current) use of oral hypoglycemic drugs; Z88.8 Allergy status to other drugs, medicaments and biological substances; Z88.5 Allergy status to narcotic agent; Z82.49 Family history of ischemic heart disease and other diseases of the circulatory system
CPT/HCPCS: 36252; 80048; 85025; 99152; C1725; C1769; J1200; J1644; J2003; J3010; J7040; Q9967

== ENCOUNTER 2025-02-17 08:48 | Outpatient (CLI) | payer MEDICARE, SELFPAY ==
--- OUTSIDE RECORDS SUMMARY | 2025-02-22 09:07 | XMS_ITS | Encounter Summary ---
[facility] Address [address] [place] [id number] Care Team Providers Care Railroad Operating Engineer Name Role Phone Sara Alston DO Primary Care Provider [phone] Reason for Visit * Reason Comments Med Refill Encounter Details Date Type Department Care Team (Late st Contact Info) Description 04/23/2022 Refill [facility] FAMILY MED[facility] [address] [place] [address] Sara Alston DO [address] [place] [address] Type 2 diabetes mellitus without [...] insulin documented in this encounter Care Teams Railroad Operating Engineer Relationship Specialty Start Date End Date Sara Alston DO [address] [place] [address] PCP - General Family Medicine 06/12/20 05/12/22 documented as of this encounter
--- OUTSIDE RECORDS SUMMARY | 2025-02-22 09:07 | XMS_ITS | Clinical Summary ---
Author Organization [facility] Address [address] [place] [address] Care Team Providers Care Film Maker Name Role Phone Unavailable Primary Care Provider [...] Gynecologic Pelvic an d Breast Exam 1961 MAMMOGRAM 2001 COLON CANCER SCREENING 5 YEA R SIGMOIDOSCOPY [address] COLONOGRAPHY 2006 FECAL OCCULT BLOOD TEST 2006 FIT Testing (1 year) 2006 Pneumococcal Vaccine 50+ (1 of 1 - PCV) 2011 ZOSTER VACCINE (1 of 2) 2011 ANNUAL PHYSICAL 06/12/2020 TDAP/TD VACCINES (3 - Td or Tdap) 01/02/2023 013, 08/22/1995 LIPID PANEL 11/23/2023 11/22/2022, 11/0 02/2022, 02/18/2022, Additional history exists COVID-19 Vaccine (3 - 2023-2 5 season) 2024 12/14/2020, 11/23/2020 COLOGUARD 11/02/2024 11/02/2021, 10/06, 10/11/2021 COLORECTAL CANCER SCREENING 11/02/2024 INFLUENZA VACCINE 04/06/2025 HEPATITIS C SCREENING Completed 12/13/2020 HEMOGLOBIN A1C Discontinued 11/22/2022, 08/08, 05/14/2022, Additional history exists Procedures Procedure Name Priority Date/Time Associated Diagnosis Comments HEMOGLOBIN A1C Routine 02/18/2022 12:00 AM EDT High cholesterol Type 2 diabetes mellitus without complication, without long-term current use of insulin LIPID PANEL W/ CHOL/HDL RATIO Routine 02/18/2022 12:00 AM EDT High cholesterol Type 2 diabetes mellitus without complication, without long-term current use of insulin SCANNED - COLOGUARD 11/02/2021 HEPATITIS C ANTIBODY Routine 12/13/2020 8:33 AM EDT Encounter for hepatitis C screening test for low risk patient from Last 3 Months or Most Recently Relevant to Health Maintenance Results * (ABNORMAL) Lipid Panel With / Chol / HDL Ratio (02/18/2022 12:00 AM EDT) Total Cholesterol 208(H) 0 - 200 mg/dL [...] LAB Blood 02/18/2022 02/18/2022 Comment:Blood Release to [facility] (AMBULATORY) - 03/01/2022 2:10 PM EDT Performed at: [address] [place] [id number] Cupola Charger: Gianni Villa MD, Phone: [phone] Sara Linnea Alston DO LAB BLOOD ORDERABLES Final Result Performing Organization Address [facility]/ZIP Co de Phone Number [facility] (AMBULATORY) [address] [place] [address], [place] [phone] [facility] [address] [place] [address], [place] [phone] * (ABNORMAL) Hemoglobin A1c (02/18/2022 12:00 AM EDT) [facility] Hemoglobin A1C 7.50(H) 4.80 - 5.60 % [facility] Comment: Hemoglobin A1C Ranges: Increased Risk for Diabetes 5.7% to 6.4% Diabetes >= 6.5% Diabetic Goal < 7.0% Blood 02/18/2022 02/18/2022 Comment:Blood Release to [facility] (AMBULATORY) - 03/01/2022 2:10 PM EDT Performed at: [address] [place] [id number] Cupola Charger: Gianni Villa MD, Phone: [phone] Sara Alston DO LAB BLOOD ORDERABLES Final Result Performing Organization Address City/[facility]/ZIP Co de Phone Number [facility] [address] [place] [address], [place] [phone] [facility] [address] [place] [address], [place] [phone] * SCANNED - COLOGUARD (11/02/2021) [facility] BLOOD ORDERABLES Final Result * Hepatitis C Antibody (12/13/2020 8:33 AM EDT) Hep C Virus Ab <0.1 0.0 - 0.9 s/co ratio [facility] Comment: Negative: < 0.8 Indeterminate: 0.8 - 0.9 Positive: > 0.9 The CDC recommends that a positive HCV antibody result be followed up with a HCV Nucleic Acid Amplification test ([id number]). Blood 12/13/2020 8:33 AM EDT 12/13/2020 Narrative [facility] (AMBULATORY) - 12/14/2020 12:09 PM EDT Performed at: [address] [place] [id number] Cupola Charger: Harsha Becker PhD, Phone: [phone] Patient Fasting: Y [facility] Linnea Gamaliel LAB BLOOD ORDERABLES Final Result Performing Organization Address City/State/[facility] Co de Phone Number [facility] [facility] [employer] (AMBULATORY) [address] [place] [address], [facility] [address] [place] [address], from Last 3 Months or Most Recently Relevant to Health Maintenance Insurance MEDICARE A & B "
== END 2025-02-17 23:59 | disposition home or self-care (01) ==
LOC: LAB.DROPOF 02-22 08:49
PROVIDERS: PCP Nurse Practitioner Family; Visit Provider Obstetrics & Gynecology
DX: N89.8 Other specified noninflammatory disorders of vagina (principal)
CPT/HCPCS: 87070; 87077; 87186; 87205; 87798; 87801

== ENCOUNTER 2025-02-28 10:34 | Emergency (ER) | payer MEDICARE, SELFPAY ==
[2025-02-28 10:47] VITALS: BP 96/51; PULSE 80; RESP 22; TEMP 36.9; O2SAT 97; BMI 29.2
[2025-02-28 10:48] LABS: Microscopic, Urine URINE MICROSCOPIC (MICROSCOPIC)
[2025-02-28 10:51] VITALS: BP 105/61; PULSE 69; RESP 20; O2SAT 98
--- NOTE | 2025-02-28 10:52 | HMH.EDGENADL ---
Discharge Plan Disposition Patient Disposition: Home, Self-Care Condition: Good Prescriptions Prescriptions: New ondansetron 4 mg tablet,disintegrating 4 mg PO Q8H Qty: 12 0RF No Action ascorbate calcium (vitamin C) 500 mg tablet 500 mg PO DAILY lisinopril 40 mg tablet 40 mg PO DAILY fluticasone propionate [Flonase Allergy Relief] 50 mcg/actuation spray,suspension 1 spray intranasal BID Rx Instructions: administer into each nostril carvedilol 25 mg tablet 12.5 mg PO BID Qty: 60 2RF Rx Instructions: must administer with a meal/food omega-3 fatty acids-fish oil [Fish Oil] 360-1,200 mg capsule 1 cap PO DAILY Centrum Silver Women 8 mg iron-400 mcg-50 mcg tablet 1 tab PO DAILY cholecalciferol (vitamin D3) 25 mcg (1,000 unit) capsule 25 mcg PO DAILY insulin glargine [Lantus Solostar U-100 Insulin] 100 unit/mL (3 mL) insulin pen 35 unit SQ HS Qty: 30 11RF pioglitazone 15 mg tablet 15 mg PO DAILY Qty: 90 3RF metformin 1,000 mg tablet See Rx Instructions .ROUTE .COMPLEX Qty: 180 3RF Dose Instruction: Take 1 tablet by mouth twice daily Rx Instructions: Take 1 tablet by mouth twice daily Prolia 60 mg/mL syringe 60 mg SQ [id number] Qty: 1 1RF rosuvastatin 40 mg tablet See Rx Instructions .ROUTE .COMPLEX Qty: 30 11RF Dose Instruction: Take 1 tablet by mouth once daily Rx Instructions: Take 1 tablet by mouth once daily glimepiride 4 mg tablet See Rx Instructions .ROUTE .COMPLEX Qty: 180 0RF Dose Instruction: TAKE 1 TABLET BY MOUTH TWICE DAILY WITH MEALS Rx Instructions: TAKE 1 TABLET BY MOUTH TWICE DAILY WITH MEALS sulfamethoxazole-trimethoprim [Bactrim DS] 800-160 mg tablet 1 tab PO BID 5 Days Qty: 10 0RF aspirin 81 mg Tablet 81 mg PO DAILY (DME) pen needle, diabetic 31 gauge x 1/4 needle See Rx Instructions .ROUTE .MEDSUPPLY Qty: 100 0RF Rx Instructions: As directed Referrals Follow up/Referrals: Fatou Abreu APRN [Primary Care Provider, Family Practice] - See instructions Activity Restrictions/Add. Instructions Additional Instructions/Restrictions: Take the zofan as needed. If your stool study comes back positive for c-diff you will need additional antibiotics and we will call these into your pharmacy and we will notify you. If your stool studies are negative for C. difficile then you can take an antidiarrheal. You do need to hydrate well by drinking plenty of fluids. Clinical Impressions Clinical Impression: Diarrhea, VEGA (acute kidney injury) Instructions Patient Instructions: DI for Diarrhea and Traveler's Diarrhea -- Adult, DI for Diarrhea and Traveler's Diarrhea -- Child, DI for Nausea -- Adult, DI for Nausea -- Child Print Language Print Language: Wallisian Discharge ED Provider: Familia Gibbs General Adult HPI General Chief complaint: Nausea/Vomiting/Diarrhea Stated complaint: Diarrhea, dehydration, unable to hold down food Time Seen by Provider: 02/28/25 10:43 Mode of Arrival: Ambulatory Source of Information: Patient Description of Symptoms (Recalled from ER Triage Doc. by RN): Pt states she started taking an antibiotic on thrusday and has had persistent diarrhea since her first solano. History of Present Illness HPI narrative: Jessica Baron is a 64y female with a history of hypertension, hyperlipidemia, coronary artery disease, diabetes mellitus, , vaginal atrophy, who presents to the emergency department for concern for watery diarrhea. Patient states that she was seen by Dr. Blanchard with [facility] on of last week for yellow vaginal discharge. She was diagnosed with a bacterial infection and put on Bactrim. She states that ever since starting Bactrim, she has developed watery, nonbloody diarrhea. She states that she is going approximately every 30 minutes. She denies any vomiting but states that she has had a poor appetite and every time that she drinks water, the diarrhea gets worse. She denies any abdominal pain or fever. She states that no one else has been sick around her. She does state that she is continuing to have vaginal discharge as well. Related Data Home Medications ?Medication ?Instructions ?Recorded ?Confirmed cholecalciferol (vitamin D3) 25 25 mcg PO DAILY 02/20/23 02/28/25 mcg (1,000 unit) capsule [id number] 8 mg-folic 400 1 tab PO DAILY 02/20/23 02/28/25 mcg-K 50 mcg-lutein 300 mcg tablet (Centrum Silver Women) omega-3 fatty acids-fish oil 360 1 cap PO DAILY 02/20/23 02/28/25 mg-1,200 mg capsule (Fish Oil) ascorbate calcium (vitamin C) 500 500 mg PO DAILY 04/21/23 02/28/25 mg tablet aspirin 81 mg tablet 81 mg PO DAILY 11/15/23 02/28/25 lisinopril 40 mg tablet 40 mg PO DAILY 08/12/24 02/28/25 fluticasone propionate 50 1 spray intranasal BID 12/29/24 02/28/25 mcg/actuation nasal spray,suspension (Flonase Allergy Relief) Previous Rx's ?Medication ?Instructions ?Recorded pen needle, diabetic 31 gauge x #100 ea 11/16/23 1/ pioglitazone 15 mg tablet 15 mg PO DAILY #90 tabs 09/07/24 denosumab 60 mg/mL subcutaneous 60 mg SQ [id number] #1 mL 09/22/24 syringe (Prolia) metformin 1,000 mg tablet See Rx Instructions .Route 09/22/24 Held on 02/10/25. .COMPLEX #180 tabs Instructions: Resume on 02/13/25. HOLD FOR 2 DAYS insulin glargine 100 unit/mL (3 35 unit (0.35 mL) SQ HS #30 mL 11/24/24 mL) subcutaneous pen (Lantus Solostar U-100 Insulin) rosuvastatin 40 mg tablet See Rx Instructions .Route 12/02/24 .COMPLEX #30 tabs glimepiride 4 mg tablet See Rx Instructions .Route 01/10/25 .COMPLEX #180 tabs carvedilol 25 mg tablet 12.5 mg (1/2 x 25 mg) PO BID #60 02/17/25 tabs sulfamethoxazole 800 1 tab PO BID 5 days #10 tabs 02/23/25 mg-trimethoprim 160 mg tablet (Bactrim DS) ondansetron 4 mg disintegrating 4 mg PO Q8H #12 tabs 02/28/25 tablet Allergies Allergy/AdvReac Type Severity Reaction Status Date / Time methylprednisolone Allergy Intermediate shortness Verified 02/17/25 13:45 of air codeine Allergy Weakness Verified 02/17/25 13:45 prednisone AdvReac Intermediate Unknown Verified 02/17/25 13:45 allergy reaction PFS PFS Disclaimer: The information contained in this section may have been updated after the patient was seen, as this information can be updated by other users. Medical History (Updated 02/28/25 @ 15:20 by Familia Gibbs MD) Edema CAD (coronary artery disease) Viral respiratory illness High blood pressure Osteopenia Hypertension, uncontrolled Belching Yeast infection involving the vagina and surrounding area Abdominal pain Diaphoresis Dyspnea Encounter for screening examination for sexually transmitted disease Left leg pain Ear congestion Right upper quadrant abdominal pain Diabetes mellitus, type 2 Sinusitis Retraction pocket of tympanic membrane Deviated nasal septum Chronic sinusitis Acute hyperglycemia Allergic sinusitis Dysuria Vaginal atrophy Vaginal Discharge delivery delivered Hyperlipemia History of hypertension Surgical History H/O right heart catheterization Status post ORIF of fracture of ankle H/O tubal ligation H/O total hysterectomy Family History Father Alcoholism Cancer lung Mother Cancer Lung Cancer Hyperlipidemia Hypertension Grandmother Diabetes Social History Smoking Status: Never smoker alcohol intake: never substance use type: denies use current occupational status: retired Travel in the last 8 weeks?: None marital status: number of children: 2 Have you lived/traveled outside US in past 30 days?: No Contact w/someone who lives/traveled outside US past 30 days?: No Exposure to someone with infectious disease in past 14 days?: No Do you have a fever (greater than 100.4 F or 38 C)?: No Have you tested positive for COVID-19?: No Exposed to someone with COVID-19 in past 14 days?: No Do you have a sore throat?: No Do you have a cough?: No Do you have any weakness?: No Do you have any diarrhea?: No Are you experiencing any unusual bleeding?: No Do you have any muscle aches/pain?: No Do you have any abdominal pain?: No Are you experiencing loss of taste or smell?: No Other Medical History Have you received the Flu Vaccine for this season: No Have you received the Pneumonia Vaccine: No ROS Obtained: Yes Systems reviewed as appropriate & no additional complaints except as documented Physical Exam General General appearance: alert, in no apparent distress and anxious Head Head exam: atraumatic Eye Eye exam: Present normal appearance ENT ENT exam: Present normal external ear exam Neck Neck exam: Present full ROM Chest Chest inspection: Present symmetric chest wall rise Respiratory Respiratory exam: Present normal lung sounds bilaterally; Absent respiratory distress Cardiovascular Cardiovascular exam: Present regular rate and normal rhythm Abdominal Exam Abdominal exam: Present soft; Absent distention, tenderness, guarding, rebound or rigidity Extremities Exam Extremities exam: Present normal inspection Back Exam Back exam: Present normal inspection Neurological Exam Neurological exam: Present alert and oriented X3 Psychiatric Psychiatric exam: Present normal affect Skin Skin exam: Present warm and dry Medical Decision Making Medical Records Screening: Per USPSTF and CDC recommendations, given the prevalence of disease in our region, it is our hospital?s policy to screen for HIV and viral Hepatitis for all patients aged 18 and over and those with ongoing risk factors. Zach Inquiry Pt receiving controlled substance: No Vital Signs: 02/28/25 10:47 02/28/25 10:51 02/28/25 11:25 Temperature 98.5 F Temperature Source Oral Pulse Rate 69 57 L Pulse Rate [Right Radial] 80 Respiratory Rate 22 20 Blood Pressure 105/61 L 106/54 L Blood Pressure [Left Arm] 96/51 L Blood Pressure Mean [Left Arm] 66 Blood Pressure Source [Left Arm] Automatic Cuff Blood Pressure Position [Left Arm] Sitting 02 Sat by Pulse Oximetry 97 98 98 Oxygen Delivery Method Room Air Room Air Room Air 02/28/25 14:00 Temperature Temperature Source Pulse Rate 62 Pulse Rate [Right Radial] Respiratory Rate Blood Pressure 122/62 Blood Pressure [Left Arm] Blood Pressure Mean [Left Arm] Blood Pressure Source [Left Arm] Blood Pressure Position [Left Arm] 02 Sat by Pulse Oximetry 97 Oxygen Delivery Method Lab Data Lab Results 02/28/25 10:42: Urine Color Yellow, Urine Appearance Clear, Urine pH 5.5, Ur Specific May[place] >= 1.030, Urine Protein Trace, Urine Glucose (UA) Negative, Urine Ketones Negative, Urine Blood 2+ A, Urine Nitrate Negative, Urine Bilirubin 1+ A, Urine Urobilinogen 0.2, Ur Leukocyte Esterase Trace, Urine RBC 5-10, Urine WBC Occasional, Ur Squamous Epith Cells 5-10, Urine Bacteria 1+, Hyaline Casts 3-5 02/28/25 10:50: WBC 11.3 H, RBC 4.83, Hgb 13.7, Hct 40.7, MCV 84.3, MCH 28.4, MCHC 33.7, RDW 13.2, Plt Count 288, MPV 10.5 H, Neut % (Auto) 60.4, Lymph % (Auto) 28.7, [place] % (Auto) 6.4, Eos % (Auto) 3.6, Baso % (Auto) 0.6, Neut # (Auto) 6.8, Lymph # (Auto) 3.2, [place] # (Auto) 0.7, Eos # (Auto) 0.4, Baso # (Auto) 0.1, VBG pH 7.30 L, VBG pCO2 39.8, VBG pO2 52.6 H, VBG HCO3 19.0 L, VBG Total CO2 20.2 L, VBG O2 Saturation 84.3 H, VBG Base Excess -7.5 L, VBG Lactic Acid 1.9, Sodium 135 L, Potassium 5.1, Chloride 107, Carbon Dioxide 16 L, Anion Gap 17.1 H, BUN 30 H, Creatinine 1.20 H, Estimated Creat Clear 55, Estimated GFR 45 L, Est GFR ( Amer) 55 L, Glucose 249 H, Calcium 9.9, Magnesium 1.5 L, Total Bilirubin 1.2, AST 40 H, ALT 33, Alkaline Phosphatase 35 L, C-Reactive Protein 1.3, Total Protein 7.3, Albumin 4.7, Globulin 2.6, Albumin/Globulin Ratio 1.8, Lipase 215, Serum HCG, Qual Negative 02/28/25 10:50 02/28/25 10:50 Orders (Tests/Meds): ED MEDICATIONS Discontinued Medications Generic Name Dose Route Start Last Admin Trade Name Freq PRN Reason Stop Dose Admin Lactated Ringer's 1,000 mls @ 999 mls/hr 02/28/25 10:50 02/28/25 12:22 Lactated Ringer's 1000 Ml Bag IV 02/28/25 11:50 Infused .Q1H1M ONE Infusion Magnesium Sulfate 2 gm in 50 mls @ 50 mls/hr 02/28/25 11:35 02/28/25 12:45 Magnesium Sulfate 2gm/50ml Premix IV 02/28/25 12:34 Infused ONCE ONE Infusion Lactated Ringer's 1,000 mls @ 999 mls/hr 02/28/25 12:04 02/28/25 13:45 Lactated Ringer's 1000 Ml Bag IV 02/28/25 13:04 Infused .Q1H1M ONE Infusion Ondansetron HCl 4 mg 02/28/25 10:50 02/28/25 10:59 Ondansetron 4mg/2ml Vial IV 02/28/25 10:51 4 mg ONCE ONE Administration ORDERS Category Date Time Status CBC w/Auto Diff [Complete Blood Count Auto Diff] Stat Lab 02/28/25 10:50 Completed CMP [Comprehensive Metabolic Panel] Stat Lab 02/28/25 10:50 Completed CRP [C-Reactive Protein] Stat Lab 02/28/25 10:50 Completed Diarrhea 6-11 Panel, Cdiff PCR Stat Lab 02/28/25 13:30 Received Lipase Stat Lab 02/28/25 10:50 Completed Magnesium Stat Lab 02/28/25 10:50 Completed Serum [HCG Qualitative, Serum] Stat Lab 02/28/25 10:50 Completed UA [Urinalysis and Microscopic] Stat Lab 02/28/25 10:42 Completed Stool Culture Stat Micro 02/28/25 13:30 Received VBG [Venous Blood Gas] Stat RT 02/28/25 10:50 Completed Medical Decision Narrative: Jessica Baron is a 64y female with a history of hypertension, hyperlipidemia, coronary artery disease, diabetes mellitus, , vaginal atrophy, who presents to the emergency department for concern for watery diarrhea. Patient states that she was seen by Dr. Blanchard with [facility] on of last week for yellow vaginal discharge. She was diagnosed with a bacterial infection and put on Bactrim. She states that ever since starting Bactrim, she has developed watery, nonbloody diarrhea. She states that she is going approximately every 30 minutes. She denies any vomiting but states that she has had a poor appetite and every time that she drinks water, the diarrhea gets worse. She denies any abdominal pain or fever. She states that no one else has been sick around her. She does state that she is continuing to have vaginal discharge as well. On arrival, patient is mildly hypotensive with blood pressure 96/51, heart rate within normal limits, afebrile, oxygen saturation 97% on room air. Physical exam, stated above, revealed an overall nontoxic-appearing female in no distress. She is anxious. Abdomen is completely soft, nontender nondistended. Cardiopulmonary exam is unremarkable. She appears mildly dehydrated with dry mucous membranes. Differential diagnosis includes, but is not limited to: Antibiotic side effect, C. difficile colitis, infectious colitis, inflammatory colitis, electrolyte derangement, dehydration, metabolic derangement, urinary tract infection, among others. The most morbid conditions were considered and workup was based on these. Workup in the emergency department included: A CBC with differential, CMP, CRP, magnesium level, lipase, urinalysis, VBG with lactate, stool culture. Patient was treated with 1 L lactated ringer, [address] imaging of the abdomen and pelvis with IV contrast was considered, however given the patient is not had any abdominal pain and no tenderness or distention on exam, is felt that this is not indicated at this time and that the radiation exposure outweighs the potential benefits. Patient was seen by Dr. Blanchard on 02/17/2025 for vaginal irritation that been going on for a month with odor and yellow discharge. Vaginal swab and culture were collected. Swab results show many gram-negative rods, many gram-positive diplococci with organism 1 being Enterobacter cloacae sensitive to Bactrim. Laboratory studies show mildly elevated white blood cell count of 11.3 without neutrophilia. No anemia. Mild metabolic acidosis with pH of 7.3, bicarb of 20.2. Lactate normal at 1.9. Mild hyponatremia at 135, however at baseline. Potassium normal at 5.1. Anion gap is mildly elevated 17.1. BUN elevated at 30 and mild VEGA with creatinine of 1.2 consistent with. Reasonable acidemia. Glucose of 249. Magnesium is mildly low at 1.5 (will replace with 2 g of IV magnesium sulfate). Liver enzymes unremarkable. Bilirubin normal at 1.2. CRP normal at 1.3. Lipase of 215. Urinalysis showed 1+ bilirubin and 2+ blood, only occasional white blood cells and 1+ bacteria. This unlikely represents a urinary tract infection. Patient is improving blood pressure, however will give additional 1 L of lactated ringer given VEGA likely secondary to dehydration from her diarrhea. At 1515, patient said that she needed to leave to berry picker her daughter from school. Charge nurse called the lab and they still had not began running patient's stool sample. I discussed with patient that this could be C. difficile infection and that that would need additional antibiotics, however we can follow-up results and call her if antibiotics need to be prescribed. I did encourage her to continue hydrating as she does have a mild VEGA and will send prescription for Zofran. Return precautions were given. All questions were answered. She demonstrated understanding and was in agreement this plan. She was then discharged from the emergency department in stable condition. Critical Care Critical Care Time Critical Care Time: No
[2025-02-28] MEDS: ONDANSETRON 4MG/2ML VIAL 4 MG IV (10:59)
[2025-02-28] MEDS: LACTATED RINGERS 1000ML 1,000 ML 999 ML IV ×2 (10:59→12:22)
[2025-02-28 11:00] LABS: Color,Urine YELLOW (Yellow); Glucose,Urine (UA) Negative (Negative); Ketones,Urine Negative (Negative); Leukocyte Esterase,Urine TRACE (Negative); PH,Urine 5.5 (5.0-8.5); Protein,Urine TRACE (Negative); Specific Gravity, Urine >= 1.030 (1.005-1.030); Urobilinogen,Urine 0.2 EU/dl (0.2)
[2025-02-28 11:03] LABS: Hematocrit 40.7 % (37.0-47.0); Hemoglobin 13.7 g/dL (12.2-16.2); Immature Granulocytes % 0.3 %; Mean Corpuscular HGB Conc 33.7 g/dL (31.8-35.4); Mean Corpuscular Hemoglobin 28.4 pg (27.0-31.2); Mean Corpuscular Volume 84.3 fl (81-99); Nucleated Red Blood Cells % 0 %; Platelet Count 288 K/mm3 (142-424); Red Blood Count 4.83 M/mm3 (4.20-5.40); Red Cell Distribution Width-SD 40.2 fL; White Blood Count 11.3 K/mm3 (4.8-10.8)
--- NOTE | 2025-02-28 11:05 | PC.NURSE ---
I notified Dimple in respiratory that a green top was sent to lab for a VBG
[2025-02-28 11:06] LABS: Albumin Level 4.7 g/dl (3.5-5.0); Chloride 107 mmol/L (98-107); Potassium 5.1 mmoL/L (3.5-5.1); Sodium 135 mmol/L (136-145)
[2025-02-28 11:08] LABS: Alanine Aminotransferase 33 U/L (12-78); Alkaline Phosphatase 35 U/L (38-126); Anion Gap 17.1 mEq/L (5-15); Aspartate Amino Transferase 40 U/L (14-36); Bilirubin,Total 1.2 mg/dl (0.2-1.3); Blood Urea Nitrogen 30 mg/dl (7-17); Carbon Dioxide 16 mmol/L (22.0-30.0); Creatinine Clearance Estimated 55 mL/min (50-200); Creatinine,Serum 1.20 mg/dl (0.52-1.04); Estimated Glomerular Filt Rate 45 ml/min (>60); GFR (African American) 55 ML/MIN (>60)
[2025-02-28 11:09] LABS: Albumin/Globulin Ratio 1.8 (1.1-1.8); Calcium 9.9 mg/dl (8.4-10.2); Globulin 2.6 g/dL (1.3-3.2); Glucose 249 mg/dl (74-100); Lactate Venous 1.9 mmol/L (0.4-2.0); Lipase 215 U/L (23-300); Total Protein,Serum 7.3 g/dl (6.3-8.2); VBG HCO3 19.0 mmol/L (23-30); VBG PCO2 39.8 mmol/L (35-51); VBG PH 7.30 mmol/L (7.31-7.41); VBG PO2 52.6 mmol/L (28-40)
[2025-02-28 11:15] LABS: C-Reactive Protein 1.3 mg/L (0-4)
[2025-02-28 11:25] VITALS: BP 106/54; PULSE 57; O2SAT 98
[2025-02-28 11:25] LABS: Magnesium 1.5 mg/dl (1.6-2.3)
[2025-02-28 11:26] LABS: Bacteria,Urine 1+ /lpf; Bilirubin,Urine 1+ (Negative); WBC,Urine Occasional #/hpf (0-3)
[2025-02-28 11:26] LABS: HCG Qualitative, Serum Negative (Negative)
--- OUTSIDE RECORDS SUMMARY | 2025-02-28 11:29 | XMS_ITS | Clinical Summary ---
Author Organization [facility] Address [address] [place] [address] Care Team Providers Care Quantitative Developer Name Role Phone Unavailable Primary Care Provider [...] LAB Blood 02/18/2022 02/18/2022 Comment:Blood Release to [facility] (AMBULATORY) - 03/01/2022 2:10 PM EDT Performed at: [address] [place] [id number] Shipping And Receiving Assistant: Gianni Villa MD, Phone: [phone] Sara Linnea Alston DO LAB BLOOD ORDERABLES Final Result Performing Organization Address [facility]/ZIP Co de Phone Number [facility] (AMBULATORY) [address] [place] [address], [place] [phone] [facility] [address] [place] [address], [place] [phone] * (ABNORMAL) Hemoglobin A1c (02/18/2022 12:00 AM EDT) [facility] Hemoglobin A1C 7.50(H) 4.80 - 5.60 % [facility] Comment: Hemoglobin A1C Ranges: Increased Risk for Diabetes 5.7% to 6.4% Diabetes >= 6.5% Diabetic Goal < 7.0% Blood 02/18/2022 02/18/2022 Comment:Blood Release to [facility] (AMBULATORY) - 03/01/2022 2:10 PM EDT Performed at: [address] [place] [id number] Shipping And Receiving Assistant: Gianni Villa MD, Phone: [phone] Sara Alston DO LAB BLOOD ORDERABLES Final Result Performing Organization Address City/[facility]/ZIP Co de Phone Number [facility] [address] [place] [address], [place] [phone] [facility] [address] [place] [address], [place] [phone] * SCANNED - COLOGUARD (11/02/2021) [employer] LAB BLOOD ORDERABLES Final Result * Hepatitis C Antibody (12/13/2020 8:33 AM EDT) Hep C Virus Ab <0.1 0.0 - 0.9 s/co ratio [facility] Comment: Negative: < 0.8 Indeterminate: 0.8 - 0.9 Positive: > 0.9 The CDC recommends that a positive HCV antibody result be followed up with a HCV Nucleic Acid Amplification test (362303). Blood 12/13/2020 8:33 AM EDT 12/13/2020 Narrative [facility] (AMBULATORY) - 12/14/2020 12:09 PM EDT Performed at: [address] [place] [address] [id number] Shipping And Receiving Assistant: Harsha Becker PhD, Phone: [phone] Patient Fasting: [facility] Linnea Gamaliel LAB BLOOD ORDERABLES Final Result Performing Organization Address City/State/[facility] Co de Phone Number [facility] [employer] (AMBULATORY) [address] [place] [address], [facility] [address] [place] [address], from Last 3 Months or Most Recently Relevant to Health Maintenance Insurance MEDICARE A & B
--- OUTSIDE RECORDS SUMMARY | 2025-02-28 11:29 | XMS_ITS | Encounter Summary ---
[facility] Address [address] [place] [id number] Care Team Providers Care Order Picker/Assembler Name Role Phone Sara Alston DO Primary Care Provider [phone] Reason for Visit * Reason Comments Med Refill Encounter Details Date Type Department Care Team (Late st Contact Info) Description 04/23/2022 Refill [facility] FAMILY MEDICINE [address] [facility] [place] [address] Sara Alston DO [address] [place] [address] Type 2 diabetes mellitus without [...] insulin documented in this encounter Care Teams Order Picker/Assembler Relationship Specialty Start Date End Date Sara Alston DO [address] [place] [address] PCP - General Family Medicine 06/12/20 05/12/22 documented as of this encounter
--- OUTSIDE RECORDS SUMMARY | 2025-02-28 11:29 | XMS_ITS ---
Laboratory report Created on: February 22, 2025 KT HURTADO : 1960 Sex: Female Author Organization Unknown PROBLEMS Problems List Code Description RESULTS Laboratory Orders Date Order Code Test 2025-02-17 [id number] NUSWAB BV AND CA NDIDA, ANNAMARIE Laboratory Results Date LOINC Test Value Unit Reference Range Interpre tation 2025-02-17 65950-0 ATOPOBIUM VAGINAE LOW0 SCORE 2025-02-17 72468-8 BVAB 2 LOW0 SCORE 2025-02-17 57881-6 MEGASPHAERA 1 LOW0 SCORE 2025-02-17 [id number] JEFF ALBICANS, ANNAMARIE N NEGATIV E 2025-02-17 97083-1 JEFF GLABRATA, ANNAMARIE N NEGATIV E
[2025-02-28] MEDS: MAGNESIUM SULFATE IN WATER 2 GM/50 ML PIGGYBACK IV (11:51)
--- NOTE | 2025-02-28 12:47 | PC.NURSE ---
pt. stated nothing was needed at this time
--- NOTE | 2025-02-28 13:16 | PC.NURSE ---
ROUNDED ON PT, NO NEEDS AT THIS TIME. CALL LIGHT WITHIN REACH
[2025-02-28 14:00] VITALS: BP 122/62; PULSE 62; O2SAT 97
[2025-02-28 14:17] LABS: Adenovirus F 40/41, stool Not Detected (NotDetected); Clostridium Difficile A/B, PCR Not Detected (NotDetected); Cyclospora Cayetanesis Not Detected (NotDetected); Plesimonas Shigalloides, PCR Not Detected (NotDetected); Salmonella, PCR Not Detected (NotDetected); Shiga-like toxin E coli Not Detected (NotDetected); Shigella Enterovasive E coli Not Detected (NotDetected); Vibrio, PCR Not Detected (NotDetected); Yersinia Entercolitica, PCR Not Detected (NotDetected)
--- NOTE | 2025-02-28 15:08 | PC.NURSE ---
spoke with lab about time frame on patients stool she reported they just started running test and will take an hour to result
--- NOTE | 2025-02-28 15:12 | PC.NURSE ---
Pt called out asking if she can be d/c now. She has a grandchild that just came home from school and needs to leave. She asked if her results can be forwarded onto her PCP. I let Dr Contreras know of the pt's wishes.
[2025-02-28 15:20] VITALS: BP 132/72; PULSE 64; RESP 17; TEMP 36.9; O2SAT 97
== END 2025-02-28 15:21 | disposition home or self-care (01) ==
PROVIDERS: Emergency Provider Student in an Organized Health Care Education/Training Program; PCP Nurse Practitioner Family
DX: N17.9 Acute kidney failure, unspecified (principal); R19.7 Diarrhea, unspecified; E11.40 Type 2 diabetes mellitus with diabetic neuropathy, unspecified; I10 Essential (primary) hypertension; E78.5 Hyperlipidemia, unspecified
CPT/HCPCS: 80053; 81001; 82803; 83690; 83735; 84703; 85025; 86140; 87045; 87506; 96361; 96365; 96375; 99285; J2405; J3475; J7120

== ENCOUNTER 2025-05-11 07:54 | Outpatient (CLI) | payer MEDICARE, SELFPAY ==
--- OUTSIDE RECORDS SUMMARY | 2025-05-11 07:58 | XMS_ITS | Encounter Summary ---
[facility] Address [address] [place] [id number] Care Team Providers Care Polisher Implant Name Role Phone Sara Alston DO Primary Care Provider [phone]- [phone] Reason for Visit * Reason Comments Med Refill Encounter Details Date Type Department Care Team (Late st Contact Info) Description 04/23/2022 Refill [facility] FAMILY MEDICINE [address] [facility] [place] [address] Sara Alston DO [address] [place] [address] Type 2 diabetes mellitus without [...] insulin documented in this encounter Care Teams Polisher Implant Relationship Specialty Start Date End Date Sara Alston DO [address] [place] [address] PCP - General Family Medicine 06/12/20 05/12/22 documented as of this encounter
--- OUTSIDE RECORDS SUMMARY | 2025-05-11 07:58 | XMS_ITS | Clinical Summary ---
Author Organization [facility] Address [address] [place] [address] Care Team Providers Care Help Desk Analyst Name Role Phone Unavailable Primary Care Provider [...] 01/02/2023 013, 08/22/1995 LIPID PANEL 11/23/2023 11/22/2022, 02/2022, 02/18/2022, Additional history exists COLOGUARD 11/02/2024 11/02/2021, 10/06, 10/11/2021 COLORECTAL CANCER SCREENING 11/02/2024 INFLUENZA VACCINE 02/04/2025 HEPATITIS C SCREENING Completed 12/13/2020 HEMOGLOBIN A1C [...] LAB Blood 02/18/2022 02/18/2022 Comment:Blood Release to pat i [facility] (AMBULATORY) - 03/01/2022 2:10 PM EDT Performed at: [address] [place] [address] [id number] American History Professor: Gianni Villa MD, Phone: [phone] Sara Linnea Gamaliel DO LAB BLOOD ORDERABLES Final Result Performing Organization Address [facility]/ZIP Co de Phone Number [facility] (AMBULATORY) [address] [place] [address], [place] [phone] [facility] [address] [place] [address], [place] [phone] * (ABNORMAL) Hemoglobin A1c (02/18/2022 12:00 AM EDT) [facility] Hemoglobin A1C 7.50(H) 4.80 - 5.60 % [facility] Comment: Hemoglobin A1C Ranges: Increased Risk for Diabetes 5.7% to 6.4% Diabetes >= 6.5% Diabetic Goal < 7.0% Blood 02/18/2022 02/18/2022 Comment:Blood Release to [facility] (AMBULATORY) - 03/01/2022 2:10 PM EDT Performed at: [address] [place] [address] [id number] American History Professor: Gianni Villa MD, Phone: [phone] Sara Linnea Alston DO LAB BLOOD ORDERABLES Final Result Performing Organization Address [facility] Co de Phone Number [facility] (AMBULATORY) [address] [place] [address], [place] [phone] [facility] [address] [place] [address], [place] [phone] * SCANNED - COLOGUARD (11/02/2021) us Sara Alston DO LAB BLOOD ORDERABLES Final Result * Hepatitis C Antibody (12/13/2020 8:33 AM EDT) Hep C Virus Ab <0.1 0.0 - 0.9 s/co ratio [facility] Comment: Negative: < 0.8 Indeterminate: 0.8 - 0.9 Positive: > 0.9 The CDC recommends that a positive HCV antibody result be followed up with a HCV Nucleic Acid Amplification test ([id number]). Blood 12/13/2020 8:33 AM EDT 12/13/2020 Narrative [facility] (AMBULATORY) - 12/14/2020 12:09 PM EDT Performed at: 03 - [facility] [address] [place] [address] [id number] [employer] History Professor: Harsha Becker PhD, Phone: [phone] Patient Fasting: Y Sara Alston DO LAB BLOOD ORDERABLES Final Result [facility] (AMBULATORY) [address] [place] [address], [facility] [address] [place] [address], from Last 3 Months or Most Recently Relevant to Health Maintenance Insurance MEDICARE A & B
--- NOTE | 2025-05-11 08:15 | MR_ITS ---
FINAL REPORT CLINICAL HISTORY: eval Achilles tendon, SWELLING AND REOCURRING PAIN THAT RADIATES UP THE LEG FINDINGS: Multiplanar MR imaging of the right lower leg was performed without contrast. There is artifact along the medial aspect of the ankle where there appears to be hardware. Although, no history of surgery was provided. Bone marrow signal intensity is otherwise preserved. There is no bone marrow edema or acute fracture. Signal intensity within the muscular structures is preserved. There is no focal muscular edema. There is abnormal signal intensity within the Achilles tendon with convexity at the anterior margin of the Achilles tendon. Achilles tendon insertion is incompletely imaged. Remaining visualized tendons are intact. Subcutaneous tissues are unremarkable. IMPRESSION: 1. Presumed postoperative change of the medial ankle, otherwise no acute osseous abnormality. 2. Abnormal signal intensity with thickening of the Achilles tendon insertion which is incompletely evaluated, favor tendinosis. Consider imaging of the ankle if further evaluation is needed. Reviewed, Interpreted and Dictated by Reyna Waite MD Transcribed by Radha Jeffrey Authenticated and [facility]
== END 2025-05-11 23:59 | disposition home or self-care (01) ==
LOC: RAD 07:55
PROVIDERS: PCP Nurse Practitioner Family; Visit Provider Podiatrist
DX: S86.011A Strain of right Achilles tendon, initial encounter (principal); M76.61 Achilles tendinitis, right leg; X58.XXXA Exposure to other specified factors, initial encounter
CPT/HCPCS: 73718